=== PATIENT | female | born 1955 | race Caucasian/White ===

== ENCOUNTER 2021-06-24 13:31 | Emergency (ER) | payer MEDICAID, SELFPAY ==
[2021-06-24 13:50] VITALS: BP 146/87; PULSE 70; RESP 16; TEMP 37.1; O2SAT 96; BMI 25.4
--- NOTE | 2021-06-24 13:50 | PC.NURSE ---
pt triaged and sat out in the lobby at this time r/t high volume of pts in ER at this time
--- NOTE | 2021-06-24 15:29 | CT_ITS ---
PROCEDURE: CT ABDOMEN PELVIS WO CON CLINICAL INDICATION: R/o kidney stone Bladder pain COMPARISON: No exams were available for comparison TECHNIQUE: Axial images obtained with sagittal and coronal reformats. All CT scans at the facility use one or more dose reduction, viz: automated exposure control, ma/kV adjustment per patient size (including targeted exams where dose is matched to indication, i.e. head), or iterative reconstruction technique. FINDINGS: LOWER THORAX: Mild atelectatic or fibrotic change in the lung bases. ABDOMEN & PELVIS: The liver, spleen, and adrenal glands have an unremarkable appearance. No obvious pancreatic mass or peripancreatic fluid collection. Prior cholecystectomy. There are nonobstructing bilateral renal calculi with punctate 2 mm calculi on the right. On the left there are small stones measuring up to 4 mm in the lower pole.. On image number 69 there heart is are 2 calcifications the plane of the left ureter measuring 3 and 4 mm which could represent a small ureteral stones or an adjacent phleboliths. There is no significant ureteral dilatation proximal to this region. The urinary bladder has an unremarkable appearance. There is a moderate amount of retained colonic feces. Mildly prominent jejunal loops are present in the left upper quadrant which are nonspecific. No evidence of appendicitis. There are few colonic diverticula but no evidence of diverticulitis. There is minimal dilatation of the infrarenal abdominal aorta at 2 cm. Concave defect is present in the upper aspect of the L4 vertebral body consistent with a Schmorl's node. IMPRESSION: 1. Bilateral nephrolithiasis. 2. Possible nonobstructing left mid ureteral calculi versus adjacent phleboliths. No ureteral dilatation or hydronephrosis. 3. Moderate amount of retained colonic feces Dictated by: Rickey Martínez MD 06/24/2021 16:17 Rickey Martínez MD in [place] 06/24/2021 16:17
--- NOTE | 2021-06-24 15:39 | PC.NURSE ---
notified rad of CT order
[2021-06-24 15:41] LABS: Microscopic, Urine URINE MICROSCOPIC (MICROSCOPIC)
[2021-06-24 15:43] LABS: Appearance,Urine SL CLOUDY (Clear); Bilirubin,Urine Negative (Negative); Blood, Urine 3+ (Negative); Color,Urine YELLOW (Yellow); Glucose,Urine (UA) Negative (Negative); Ketones,Urine TRACE (Negative); Leukocyte Esterase,Urine Negative (Negative); Nitrate,Urine Negative (Negative); Protein,Urine Negative (Negative); Specific Gravity, Urine 1.025 (1.005-1.030); Urobilinogen,Urine 0.2 EU/dl (0.2)
[2021-06-24 15:51] LABS: Basophils # 0.1 K/mm3 (0-0.2); Basophils % 0.7 % (0.1-2.0); Eosinophils # 0.2 K/mm3 (0.0-0.4); Eosinophils % 2.2 % (0.1-12.0); Hematocrit 43.9 % (37.0-47.0); Hemoglobin 14.3 g/dL (12.2-16.2); Lymphocytes # 2.1 K/mm3 (0.7-4.5); Lymphocytes % 19.6 % (10-50); Mean Corpuscular HGB Conc 32.7 g/dL (31.8-35.4); Mean Corpuscular Hemoglobin 31.4 pg (27.0-31.2); Mean Platelet Volume 7.1 fl (7.4-10.4); Monocytes # 0.5 K/mm3 (0.1-1.0); Monocytes % 4.4 % (1.7-9.3); Neutrophils # 7.8 K/mm3 (1.8-7.8); Platelet Count 361 K/mm3 (142-424); Red Blood Count 4.57 M/mm3 (4.20-5.40); Red Cell Distribution Width 12.6 % (11.5-17.5); White Blood Count 10.7 K/mm3 (4.8-10.8)
[2021-06-24 15:54] LABS: Bacteria,Urine Trace /lpf; Mucus,Urine 2+ /lpf
[2021-06-24 15:56] LABS: Alanine Aminotransferase 12 U/L (12-78); Albumin Level 4.4 g/dl (3.5-5.0); Albumin/Globulin Ratio 1.5 (1.1-1.8); Alkaline Phosphatase 92 U/L (38-126); Anion Gap 12.8 mEq/L (5-15); Aspartate Amino Transferase 26 U/L (14-36); Bilirubin,Total 0.3 mg/dl (0.2-1.3); Blood Urea Nitrogen 15 mg/dl (7-17); Carbon Dioxide 28 mmol/L (22.0-30.0); Chloride 102 mmol/L (98-107); Creatinine Clearance Estimated 60 mL/min (50-200); Estimated Glomerular Filt Rate 72 ml/min (>60); GFR (African American) 87 ML/MIN (>60); Glucose 105 mg/dl (74-100); Potassium 3.8 mmoL/L (3.5-5.1); Sodium 139 mmol/L (136-145); Total Protein,Serum 7.4 g/dl (6.3-8.2)
[2021-06-24 17:00] VITALS: BP 174/72; PULSE 65; O2SAT 97
[2021-06-24 17:30] VITALS: BP 176/77; PULSE 64; O2SAT 97
--- NOTE | 2021-06-24 18:24 | [facility].EDGENADL ---
ED Disposition Clinical Impression: Ureterolithiasis Disposition: Home, Self-Care Condition on Discharge: Good Instructions: Kidney Stones -- Adult Additional Instructions: Medications as directed. Follow-up with Dr. Phipps as able. Return to emergency department for worsening pain, nausea/vomiting, fever greater 100.5. Prescriptions: Ketorolac Tromethamine [Toradol 10mg tablet] 10 mg PO Q6HP #16 tab MDD 40mg/day Transmission Status: Pending to [facility] # Tamsulosin HCl [Flomax 0.4mg capsule] 0.4 mg PO HS #30 cap Transmission Status: Pending to [facility] # Hydrocodone/Acetaminophen [Hydrocodone-Acetamin 5-325 mg] 1 tab PO TID #10 tab Transmission Status: Sent to [facility] # Ondansetron [Zofran 4mg ODT] 4 mg PO TIDP PRN #10 tab PRN Reason: Nausea Transmission Status: Pending to [facility] # Referrals: Provider,MD Erica [Primary Care Provider] - Rony Phipps MD [Staff Physician] - (call tomorrow for appt) Time of Disposition: 18:39 - Critical Care Critical Care Time: No Attestation: On 06/24/21, the high probability of a clinically significant, sudden or life threatening deterioration of the following system(s) required my full and direct attention, intervention and personal management. The time I documented below is in addition to time spent performing reported procedures but includes the following listed in this critical care notation. Medical Decision Making - Medical Records Medical records reviewed: Yes: I reviewed the patient's medical records. - Vazquez Inquiry Pt receiving controlled substance: No Vital Signs: 06/24/21 13:50 Temperature 98.7 F Temperature Source Oral Pulse Rate [Left Radial] 70 Respiratory Rate 16 Blood Pressure [Left Arm] 146/87 H Blood Pressure Mean [Left Arm] 106 Blood Pressure Source [Left Arm] Automatic Cuff Blood Pressure Position [Left Arm] Sitting 02 Sat by Pulse Oximetry 96 Oxygen Delivery Method Room Air - Lab Data Lab results reviewed: Yes: I reviewed the patient's lab results. Lab Results 06/24/21 15:35: Urine Color Yellow, Urine Appearance Sl cloudy, Urine pH 6.0, Ur Specific [place] 1.025, Urine Protein Negative, Urine Glucose (UA) Negative, Urine Ketones Trace, Urine Blood 3+, Urine Nitrate Negative, Urine Bilirubin Negative, Urine Urobilinogen 0.2, Ur Leukocyte Esterase Negative, Urine RBC 50-100, Urine WBC 3-5, Urine Bacteria Trace, Urine Mucus 2+ 06/24/21 15:35: WBC 10.7, RBC 4.57, Hgb 14.3, Hct 43.9, MCV 96.0, MCH 31.4 H, MCHC 32.7, RDW 12.6, Plt Count 361, MPV 7.1 L, Neut % (Auto) 73.0, Lymph % (Auto) 19.6, [place] % (Auto) 4.4, Eos % (Auto) 2.2, Baso % (Auto) 0.7, Neut # (Auto) 7.8, Lymph # (Auto) 2.1, [place] # (Auto) 0.5, Eos # (Auto) 0.2, Baso # (Auto) 0.1 06/24/21 15:35: Sodium 139, Potassium 3.8, Chloride 102, Carbon Dioxide 28, Anion Gap 12.8, BUN 15, Creatinine 0.80, Estimated Creat Clear 60, Estimated GFR 72, Est GFR ( Amer) 87, Glucose 105 H, Calcium 9.0, Total Bilirubin 0.3, AST 26, ALT 12, Alkaline Phosphatase 92, Total Protein 7.4, Albumin 4.4, Globulin 3.0, Albumin/Globulin Ratio 1.5 Result diagrams: 06/24/21 15:35 06/24/21 15:35 Orders (Tests/Meds): ED MEDICATIONS Discontinued Medications Generic Name Dose Route Start Last Admin Trade Name Freq PRN Reason Stop Dose Admin Ketorolac Tromethamine 15 mg 06/24/21 17:45 06/24/21 18:20 Ketorolac 30mg/Ml Vial IV 06/24/21 17:46 15 mg ONCE ONE Administration - CT Data CT Scan: Abdomen, Pelvis Time Received: 18:30 Preliminary Findings: Abnormal Findings Narrative: Probable left-sided mid ureterolith Medical Decision Narrative: 65yo F evaluated for bladder pain and suspected UTI. Routine laboratory studies and CT obtained. Patient is in no acute distress on initial evaluation. Patient's laboratory studies are unremarkable except for some hematuria. Urinalysis shows no sign
[2021-06-24 18:52] VITALS: BP 163/53; PULSE 71; RESP 18; TEMP 37.1; O2SAT 97
== END 2021-06-24 18:52 | disposition home or self-care (01) ==
PROVIDERS: Emergency Provider Family Medicine
DX: N20.1 Calculus of ureter (principal); I10 Essential (primary) hypertension; F17.210 Nicotine dependence, cigarettes, uncomplicated; Z87.442 Personal history of urinary calculi
CPT/HCPCS: 74176; 80053; 81001; 85025; 96374; 99283

== ENCOUNTER → 2021-07-07 12:33 | Outpatient (CLI) | payer MEDICAID, SELFPAY ==
--- NOTE | 2021-07-07 12:39 | XR_ITS ---
PROCEDURE: XR KUB CLINICAL INDICATION: ureteral stone COMPARISON: CT CT ABDOMEN PELVIS WO CON from 06/24/2021 FINDINGS: Surgical clips are present in the right upper quadrant. Nonspecific nonobstructive bowel gas pattern. There are small punctate bilateral renal calculi. Multiple pelvic calcifications are present suggesting phleboliths. Degenerative changes lumbar spine. IMPRESSION: No acute finding. Bilateral nephrolithiasis Dictated by: Rickey Martínez MD 07/07/2021 15:32 Rickey Martínez MD in [place] 07/07/2021 15:32
== END ==
PROVIDERS: Visit Provider Urology
DX: N20.1 Calculus of ureter (principal)
CPT/HCPCS: 74018

== ENCOUNTER → 2021-07-14 13:01 | Outpatient (CLI) | payer MEDICAID, SELFPAY ==
--- NOTE | 2021-07-14 13:11 | XR_ITS ---
PROCEDURE: XR KUB CLINICAL INDICATION: ureteral stone COMPARISON: CT CT ABDOMEN PELVIS WO CON from 06/24/2021 CR XR KUB from 07/07/2021 FINDINGS: Status post cholecystectomy.. Punctate bilateral renal calculi once again noted. No definite ureteral calculus apparent with no significant change. Surgical clips are present in the right upper quadrant. IMPRESSION: Bilateral renal calculi Dictated by: Rickey Martínez MD 07/14/2021 15:59 Rickey Martínez MD in [place] 07/14/2021 15:59
== END ==
PROVIDERS: Visit Provider Urology
DX: N20.1 Calculus of ureter (principal)
CPT/HCPCS: 74018

== ENCOUNTER 2022-12-01 15:33 | Emergency (ER) | payer MEDICARE, SELFPAY ==
[2022-12-01 15:39] VITALS: BP 129/76; PULSE 77; RESP 18; TEMP 36.7; O2SAT 96; BMI 25.3
[2022-12-01 15:58] VITALS: BMI 25.3
--- NOTE | 2022-12-01 15:59 | CT_ITS ---
FINAL REPORT CLINICAL HISTORY: L eye blindness 2 am today, r/o stroke FINDINGS: Axial images of the head were obtained without contrast. Coronal reformatted images were also obtained. This study was performed with techniques to keep radiation doses as low as reasonably achievable (ALARA). Individualized dose reduction techniques using automated exposure control or adjustment of mA and/or kV according to the patient's size were employed. There is generalized age-appropriate atrophy. Periventricular low-attenuation areas are seen consistent with mild chronic ischemic changes. There is no evidence of intracranial hemorrhage or mass. There is no evidence of acute infarct. There is no evidence of shift of the midline structures. No skull abnormality is seen on the bone window images. IMPRESSION: Atrophy and mild periventricular chronic ischemic changes. No acute intracranial abnormality identified. Reviewed, Interpreted and Dictated by Phillip Landin III, MD Transcribed by Leticia Bautista Authenticated and [facility]
--- NOTE | 2022-12-01 16:00 | PC.NURSE ---
notified rad of stroke protocol head ct
--- NOTE | 2022-12-01 16:01 | XR_ITS ---
FINAL REPORT CLINICAL HISTORY: stroke protocol FINDINGS: SINGLE-VIEW CHEST The heart size is normal. The mediastinum is normal. There is a 6 mm left upper lobe nodule. It is uncertain if it is calcified. There is no pneumothorax. IMPRESSION: Left upper lobe nodule as detailed above. If indicated, CT could further evaluate. Reviewed, Interpreted and Dictated by Phillip Landin III, MD Transcribed by Jia Herring Authenticated and [facility]
--- NOTE | 2022-12-01 16:06 | PC.NURSE ---
Patient to CT
[2022-12-01 16:13] LABS: Basophils # 0.2 K/mm3 (0-0.2); Basophils % 1.6 % (0.1-2.0); Eosinophils # 0.3 K/mm3 (0.0-0.4); Eosinophils % 2.7 % (0.1-12.0); Hematocrit 43.9 % (37.0-47.0); Hemoglobin 14.2 g/dL (12.2-16.2); Lymphocytes # 1.9 K/mm3 (0.7-4.5); Lymphocytes % 18.6 % (10-50); Mean Corpuscular HGB Conc 32.3 g/dL (31.8-35.4); Mean Corpuscular Hemoglobin 31.8 pg (27.0-31.2); Mean Corpuscular Volume 98.6 fl (81-99); Mean Platelet Volume 7.6 fl (7.4-10.4); Monocytes # 0.4 K/mm3 (0.1-1.0); Monocytes % 4.4 % (1.7-9.3); Neutrophils # 7.3 K/mm3 (1.8-7.8); Neutrophils % 72.8 % (37.0-80.0); Platelet Count 395 K/mm3 (142-424); Red Blood Count 4.46 M/mm3 (4.20-5.40); Red Cell Distribution Width 13.3 % (11.5-17.5); White Blood Count 10.1 K/mm3 (4.8-10.8)
[2022-12-01 16:17] LABS: Chloride 106 mmol/L (98-107); Potassium 4.6 mmoL/L (3.5-5.1); Sodium 140 mmol/L (136-145)
[2022-12-01 16:20] LABS: Anion Gap 5.6 mEq/L (5-15); Blood Urea Nitrogen 19 mg/dl (7-17); Calcium 8.7 mg/dl (8.4-10.2); Carbon Dioxide 33 mmol/L (22.0-30.0); Creatinine Clearance Estimated 57 mL/min (50-200); Estimated Glomerular Filt Rate 63 ml/min (>60); GFR (African American) 76 ML/MIN (>60); Glucose 111 mg/dl (74-100)
[2022-12-01 16:22] LABS: Prothrombin Time 9.8 seconds (10.1-12.5)
[2022-12-01 16:35] VITALS: BP 134/60; PULSE 66; RESP 18; O2SAT 94
[2022-12-01 16:37] VITALS: BP 161/56; PULSE 62; RESP 18; O2SAT 95
--- NOTE | 2022-12-01 16:51 | ECG_ITS ---
APPROVED REPORT Exam: Resting ECG HR:64 bpm ECG Measurements Heart Rate 64 AXES ID 153 P 66 QRSd 107 QRS -4 QT 423 T 65 QTc 432 Conclusion SINUS RHYTHM NORMAL ECG UNCONFIRMED REPORT Electronically signed by : Liu Garcia MD 12/01/2022 20:45:33
--- NOTE | 2022-12-01 16:56 | [facility].EDGENADL ---
Discharge Plan Disposition Patient Disposition: Home, Self-Care Condition: Good Chief Complaint: Neuro Symptoms/Deficit Prescriptions Prescriptions: No Action duloxetine [Cymbalta] 30 mg capsule,delayed release(DR/EC) 30 mg PO DAILY metoprolol succinate [Toprol XL] 25 mg tablet extended release 24 hr 25 mg PO DAILY losartan [Cozaar] 50 mg tablet 50 mg PO DAILY hydrocodone-acetaminophen 7.5-325 mg tablet 1 tab PO HS PRN Referrals Follow up/Referrals: Provider,Referral, [Primary Care Provider] - See instructions Activity Restrictions/Add. Instructions Additional Instructions/Restrictions: Take aspirin 81 mg every day. Take atorvastatin every day as prescribed. Recommend smoking cessation. Take your blood pressure medication as prescribed. Follow-up as soon as possible with your primary care provider to discuss referral to a vascular surgeon for endarterectomy. Take your CT scans and CT angiogram disks with you. Go straight to emergency department if your vision symptoms return or any new symptoms such as weakness, numbness, or difficulty speaking. Clinical Impressions Clinical Impression: Brain TIA, Carotid artery stenosis, Hypertension Instructions Patient Instructions: DI for Transient Ischemic Attack, DI for Carotid Artery Stenosis, DI for High Blood Pressure Discharge ED Provider: Cesar Galloway General Adult HPI General Chief complaint: Neuro Symptoms/Deficit Stated complaint: poss HBP, 185/67@1430 Time Seen by Provider: 12/01/22 16:55 Mode of Arrival: Ambulatory Source of Information: Patient Limitations: No Limitations Description of Symptoms (Recalled from ER Triage Doc. by RN): Pt presents c/o issues with blood pressure for approx 1-2 weeks. Pt reports bp has been elevated each time she has checked it this week. Pt reports taking bp medications daily but has also been taking sinus medications. Pt reports this morning approx 2am when she woke up she was blind in her L eye. Pt reports this lasted for approx 10 minutes. Pt repots today has has blurry vision today in both eyes but only if she closes one of her eyes and looks out of one at a time. History of Present Illness HPI narrative: Patient states that she has been having problems with her blood pressure being high for the past couple of weeks. She says a couple of days ago she found a blood pressure cuff at home and measured it and it was 204/109. She says she took an extra blood pressure pill. She has made an appointment to see her nail puller in [facility] that manages her blood pressure. She says that last night she awakened about 2 AM and was almost completely blind in her left eye. She says that it was like looking through a cloud and she could see a little bit of light coming in from the periphery. It lasted for about 10 minutes. Now she says she only has some mild blurry vision bilaterally. She has had some recent problems with headaches and neck pain as well. She has not had any numbness or weakness of the extremities and no difficulty speaking. No prior history of stroke or TIA. She does have hypertension and takes Toprol in the morning, losartan at night. She is compliant with her blood pressure medication. She says she is supposed to take aspirin but normally does not, but did take an 81 mg aspirin this morning. Also states that she is supposed to be on a statin for cholesterol, but does not take it either. Also continues to smoke. States she has a supply of her statin at home. Related Data Home Medications Medication Instructions Recorded Confirmed duloxetine 30 mg capsule,delayed 30 mg PO DAILY 06/23/21 07/14/21 release (Cymbalta) hydrocodone 7.5 mg-acetaminophen 1 tab PO HS PRN 06/23/21 07/14/21 325 mg tablet losartan 50 mg tablet (Cozaar) 50 mg PO DAILY 06/23/21 07/14/21 metoprolol succinate 25 mg 25 mg PO DAILY 06/23/21 07/14/21 tablet,extended release 24 hr (Toprol XL)
--- NOTE | 2022-12-01 17:10 | CT_ITS ---
PROCEDURE INFORMATION: Exam: CTA Neck With Contrast Exam date and time: 12/01/2022 5:29 PM Age: 67 years old Clinical indication: Visual disturbance; Sudden visual loss; Additional info: Episode of vision loss L eye, RT eye blurry x last night. Nkt TECHNIQUE: Imaging protocol: Computed tomographic angiography of the neck with contrast. 3D rendering (Not supervised by radiologist): MIP and/or 3D reconstructed images were created by the technologist. Radiation optimization: All CT scans at this facility use at least one of these dose optimization techniques: automated exposure control; mA and/or kV adjustment per patient size (includes targeted exams where dose is matched to clinical indication); or iterative reconstruction. Contrast material: ISOVUE; Contrast volume: 100 ml; Contrast route: INTRAVENOUS (IV); REPORTING DATA: Count of CT and Cardiac NM exams in prior 12 months: This patient has received 2 known CTs and 0 known cardiac nuclear medicine studies in the 12 months prior to the current study. COMPARISON: CT HEAD/BRAIN WO CON 12/01/2022 4:06 PM FINDINGS: Right common carotid artery: Distal right common carotid artery has 30% stenosis due to calcified and noncalcified plaque. Right internal carotid artery: Proximal right internal carotid artery has 50% stenosis due to calcified and noncalcified plaque. Right external carotid artery: No occlusion or stenosis of the origin. Left common carotid artery: The left common carotid artery has mild predominantly noncalcified plaque with less than 30% stenosis. Left internal carotid artery: The proximal left internal carotid artery has approximately 80% stenosis which spans 1.2 cm in length. Left external carotid artery: No occlusion or stenosis of the origin. Right vertebral artery: 50% stenosis is seen in the proximal right vertebral artery just beyond the origin. Left vertebral artery: No stenosis. No dissection or occlusion. Left subclavian artery: Left subclavian artery proximal/midportion has 50% stenosis predominantly due to noncalcified plaque on series 6, image 112. There is 30% stenosis also present in the proximal left subclavian just beyond the origin. Soft tissues: Normal. No significant soft tissue swelling. Bones/joints: No acute fracture. Lungs: Posterior left upper lobe calcified granuloma measuring 9 mm. IMPRESSION: 1. High-grade approximally 80% stenosis of the proximal left internal carotid artery. 2. The proximal right internal carotid artery has 50% stenosis which is below the threshold for significance by the NASCET criteria. 3. Additional regions of 50% stenosis of the proximal/mid left subclavian artery and in the proximal right vertebral artery. REFERENCES: NASCET CRITERIA. The degree of stenosis in the cervical segment of the internal carotid artery is based on NASCET criteria. Normal is no stenosis. Mild is less than 50% stenosis. Moderate is 50-69% stenosis. Severe is 70% to 99% stenosis. Total occlusion is no detectable patent lumen.
--- NOTE | 2022-12-01 17:10 | CT_ITS ---
PROCEDURE INFORMATION: Exam: CTA Head With Contrast, Arteriography Exam date and time: 12/01/2022 5:29 PM Age: 67 years old Clinical indication: Visual disturbance; Sudden visual loss; Patient HX: Episode of vision loss L eye, RT eye blurry x last night. Nkt TECHNIQUE: Imaging protocol: Computed tomographic angiography of the head with contrast. Exam focused on the arteries. 3D rendering (Not supervised by radiologist): MIP and/or 3D reconstructed images were created by the technologist. Radiation optimization: All CT scans at this facility use at least one of these dose optimization techniques: automated exposure control; mA and/or kV adjustment per patient size (includes targeted exams where dose is matched to clinical indication); or iterative reconstruction. Contrast material: ISOVUE; Contrast volume: 100 ml; Contrast route: INTRAVENOUS (IV); REPORTING DATA: Count of CT and Cardiac NM exams in prior 12 months: This patient has received 2 known CTs and 0 known cardiac nuclear medicine studies in the 12 months prior to the current study. COMPARISON: CT HEAD/BRAIN WO CON 12/01/2022 4:06 PM FINDINGS: ANTERIOR CIRCULATION: Right internal carotid artery: Intracranial segment is patent with no significant stenosis. No aneurysm. Right middle cerebral artery: No occlusion or significant stenosis. No aneurysm. Right anterior cerebral artery: No occlusion or significant stenosis. No aneurysm. Left internal carotid artery: Intracranial segment is patent with no significant stenosis. No aneurysm. Left middle cerebral artery: No occlusion or significant stenosis. No aneurysm. Left anterior cerebral artery: No occlusion or significant stenosis. No aneurysm. POSTERIOR CIRCULATION: Right vertebral artery: No occlusion or significant stenosis. No aneurysm. Left vertebral artery: No occlusion or significant stenosis. No aneurysm. Basilar artery: No occlusion or significant stenosis. No aneurysm. Right posterior cerebral artery: No occlusion or significant stenosis. No aneurysm. Left posterior cerebral artery: No occlusion or significant stenosis. No aneurysm. Brain: No definite mass, mass effect, or midline shift. Cerebral ventricles: No ventriculomegaly. Bones/joints: Unremarkable. No acute fracture. Soft tissues: Unremarkable. IMPRESSION: No large vessel stenosis or occlusion.
[2022-12-01 17:27] LABS: Troponin I < 0.01 ng/ml (0.00-0.034)
--- NOTE | 2022-12-01 17:42 | PC.NURSE ---
1734-pt in CT for CTA scans
--- NOTE | 2022-12-01 18:46 | PC.NURSE ---
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
[2022-12-01 18:58] VITALS: BP 144/79; PULSE 71; RESP 17; TEMP 36.7; O2SAT 96
== END 2022-12-01 19:00 | disposition home or self-care (01) ==
PROVIDERS: Emergency Provider Emergency Medicine
DX: G45.9 Transient cerebral ischemic attack, unspecified (principal); I10 Essential (primary) hypertension; F17.210 Nicotine dependence, cigarettes, uncomplicated
CPT/HCPCS: 70450; 70496; 70498; 71045; 80048; 84484; 85025; 85610; 93005; 99285; Q9967

== ENCOUNTER 2025-06-12 13:50 | Outpatient (RCR) | payer MEDICARE, SELFPAY | END 2025-06-12 23:59 | disposition home or self-care (01) | LOC: OT 13:50 | DX: S32.010A Wedge compression fracture of first lumbar vertebra, initial encounter for closed fracture (principal); X58.XXXA Exposure to other specified factors, initial encounter ==

== ENCOUNTER 2025-07-09 15:17 | Outpatient (CLI) | payer MEDICARE, SELFPAY ==
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
--- OUTSIDE RECORDS SUMMARY | 2025-05-15 14:05 | XMS_ITS | Encounter Summary ---
Author Organization Healthcare Address [address] [place] [address] Care Team Providers Care Processing Supervisor Name Role Phone Susi Hanna MD Primary Care Provider [phone] Encounter Details Date Type Department Care Team (Latest Contact Info) Description 05/15/2025 2:05 PM EDT - 05/15/2025 11:59 PM EDT Hospital En[facility] [address], [address] [place] [address] Right shoulder pain, unspecified chronicity Discharge Disposition: Home or Self Care Social History Tobacco Use Types Packs/Day Years [...] any time in the past 12 m [facility], were you homeless or living in a senior care (including now)? No 04/15/2025 Utilities Answer Date Recorded In the past 12 months has th e [employer], gas, oil, or water [employer] threatened to shut off services in your home? No 04/15/2025 Comments No Sex and Gender Information Value Date Recorded Sex Assigned at Not on file Legal Sex Female 6:12 PM EDT Gender Identity Not on file Sexual Orientation Not on file documented as of this encounter Medications at Time of Discharge atorvastatin (Lipitor) 20 MG tablet Take 1 tablet by mouth daily. bisacodyl (Dulcolax) 10 MG suppository Insert 1 suppository into the rectum daily. 12 suppository 5 cholecalciferol (Vitamin D-3) 50 MCG (1999) capsule Take 1 capsule by mouth daily. 4 clopidogrel (Plavix) 75 MG tablet Take 1 tablet by mouth daily. DULoxetine (Cymbalta) [address] capsule Take 1 capsule by mouth daily. 4 HYDROcodone-acetami nophen ([place]) 7.5-325 MG tablet 5 hydrocortisone (Proctozone-HC) 2.5 % rectal cream 6 methocarbamol (Robaxin) 750 MG tablet Take 1 tablet by mouth 3 times a day. 90 tablet 5 methylPREDNISolone (Medrol Dospak) 4 MG tablets follow package directions 5 metoprolol succinate XL (Toprol-XL) 25 MG 24 hr tablet Take 1 tablet by mouth daily. Do not crush or chew. naloxone (Narcan) 4 mg/0.1 mL nasal spray 1. Give 1 spray in nostril for no/slow breathing or cannot wake after opioid use 2. Call 911 3. Repeat in other nostril if symptoms continue 1 each 5 Neurontin 400 MG capsule Take 1 capsule by mouth 3 times a day. 5 nicotine (Nicoderm CQ) 21 MG/24HR patch Place 1 patch on the skin 1 (one) time each day at the same time. 30 patch 5 ondansetron ODT (Zofran-ODT) [address] 1 tablet every 8 hours by translingual route as needed. pantoprazole (Protonix) 40 MG EC tablet Take 1 tablet by mouth daily. 4 Lidocaine (Lido Evert) 4 % patch Apply 1 patch topically daily. Apply to affected area daily for pain 30 patch 5 05/23/20 25 senna-docusate (Tiffanie-Colace) 8.6-50 MG tablet Take 1 tablet by mouth 2 times a day. 60 tablet 5 05/23/20 25 documented as of this encounter Plan of Treatment Upcoming Encounters Date Type Department Care Team (Latest Contact Info) Description 07/17/2025 1:15 PM EDT Pre-Admission Testing [facility] Anesthesia [address] [place] [address] 08/12/2025 2:35 PM EST Hospital Encounter [facility] Operating Room [address] [place] [address] Obie Sherman MD [address] [place] [address] 08/12/2025 2:35 PM EST - 08/12/2025 4:45 PM EST Surgery [facility] Operating Room [address] [place] [address] Obie Sherman MD [address] [facility] [address] [place] [address] ARTHROPLASTY, SHOULDER, TOTAL, REVERSE-RIGHT [[id number] (CPT )] 08/27/2025 3:20 PM EST Office Visit [facility] Orthopaedic Surgery & Sports Medicine [address], 1[address] [place] [address] Obie Sherman MD [address] [facility] [address] [place] [address] 09/30/2025 1:00 PM EST Office Visit [facility] [address], [address] [place] [address] Romana Monsalve, PA [address] [place] [address] Scheduled Procedures Name Priority Associated Diagnoses Date/Ti me ARTHROPLASTY, SHOULDER, TOTAL, REVERSE Closed fracture of proximal end of right humerus, unspecified fracture morphology, initial encounter 08/12/2025 2:35 PM EST documented as of this encounter Procedures Procedure Name Priority Date/Time Associated Diagnosis Comments XR SHOULDER RIGHT 2+ VIEWS Routine 05/15/2025 3:02 PM EDT Right shoulder pain, unspecified chronicity documented in this encounter Results * XR Shoulder Right 2+ Views (05/15/2025 3:02 PM EDT) Anatomical Region Laterality Modality Upper Extremities, Shoulder Right Digi dasia Radiography Impressions 05/15/2025 3:23 PM EDT Healing comminuted humeral neck fracture with unchanged fracture fragment alignment CRITICAL RESULT: No. COMMUNICATION: Per this written report. Drafted by Caden Valle MD on 05/15/2025 3:22 PM Final report signed by Caden aVlle MD on 05/15/2025 3:23 PM Narrative 05/15/2025 [...] chest wall are normal. Procedure Note Caden Valel MD - 05/15/2025 CLINICAL INDICATION: pain TECHNIQUE: [...] documented in this encounter Visit Diagnoses Diagnosis Right shoulder pain, unspecified chronicity Closed fracture [...] documented as of this encounter Care Teams Processing Supervisor Relationship Specialty Start Date End Date Susi Hanna MD [address] [place] [address] [place] [address] PCP - General 02/20/21 06/12/25 documented as of this encounter
--- OUTSIDE RECORDS SUMMARY | 2025-05-23 10:45 | XMS_ITS | Encounter Summary ---
Author Organization Healthcare Address [address] [place] [place] [address] Care Team Providers Care Compressor House Operator Name Role Phone Susi Hanna MD Primary Care Provider [phone] Encounter Details Date Type Department Care Team (Latest Contact Info) Description 05/23/2025 10:45 AM EDT - 05/23/2025 11:59 PM EDT Hospital Encounter [facility] [address], 1[address] [place] [address] Closed compression fracture of body of L1 vertebra (CMS/[facility]) Discharge Disposition: Home or Self Care Social [...] any time in the past 12 m [facility], were you homeless or living in a assisted (including now)? No 04/15/2025 Utilities Answer Date Recorded In the past 12 months has th e [employer], gas, oil, or water company threatened to shut off services in your [...] capsule by mouth daily. 4 HYDROcodone-acetami nophen ([place]) 7.5-325 MG tablet 5 hydrocortisone (Proctozone-HC) 2.5 % rectal cream 6 methocarbamol (Robaxin) 750 MG tablet Take 1 tablet by mouth 3 times a day. 90 tablet 5 methylPREDNISolone (Medrol Dospak) 4 MG tablets follow package directions 5 metoprolol succinate XL (Toprol-XL) 25 MG 24 hr tablet Take 1 tablet by mouth daily. Do not crush or chew. multivitamin (Theragran) tablet Take 1 tablet by mouth 1 time each day. naloxone (Narcan) 4 mg/0.1 mL nasal spray [...] Take 1 tablet by mouth daily. 4 documented as of this encounter Plan of Treatment Upcoming Encounters Date Type Department Care Team (Latest Contact Info) Description 07/17/2025 1:15 PM EDT Pre-Admission Testing [facility] Anesthesia [address] [place] [address] 08/12/2025 2:35 PM EST Hospital Encounter [facility] Operating Room [address] [place] [address] Obie Sherman MD [id number] [place] [address] 08/12/2025 2:35 PM EST - 08/12/2025 4:45 PM EST Surgery [facility] Operating Room [address] [place] [address] Obie Sherman MD [id number] [place] [address] ARTHROPLASTY, SHOULDER, TOTAL, REVERSE-RIGHT [[id number] (CPT )] 08/27/2025 3:20 PM EST Office Visit [facility] Orthopaedic Surgery & Sports Medicine [address] [place] [address] Obie Sherman MD [address] [place] [address] 09/30/2025 1:00 PM EST Office Visit [facility] [address] [place] [address] Romana Monsalve PA [address] [place] [address] Scheduled Procedures Name Priority Associated Diagnoses Date/Ti me ARTHROPLASTY, SHOULDER, TOTAL, REVERSE Closed fracture of proximal end of right humerus, unspecified fracture morphology, initial encounter 08/12/2025 2:35 PM EST documented as of this encounter Procedures Procedure Name Priority Date/Time Associated Diagnosis Comments XR LUMBAR SPINE 4 VIEWS TO INCLUDE FLEXION EXTENSION Routine 05/23/2025 11:01 AM EDT Closed compression fracture of body of L1 vertebra (CMS/[facility]) documented in this encounter Results * XR Lumbar Spine 4+ Views w Flexion Extension (05/23/2025 11:01 AM EDT) Anatomical Region Laterality Modality Spine, L-spine Digital Radiogra phy Impressions 05/23/2025 11:59 AM EDT Compression deformity at L1 with unchanged loss of vertebral body height and no vertebral instability. CRITICAL RESULT: No. COMMUNICATION: Per this written report. Drafted by Caden Valle MD on 05/23/2025 11:57 AM Final report signed by Caden Valle MD on 05/23/2025 11:59 AM Narrative 05/23/2025 11:59 AM EDT CLINICAL INDICATION: fracture follow up with rule out for instability TECHNIQUE: XR LUMBAR SPINE 4 VIEWS TO INCLUDE FLEXION EXTENSION COMPARISON: April 12, 2025 FINDINGS: 4 views of the lumbar spine show compression deformity at L1 with unchanged loss of vertebral body height. Unchanged disc space narrowing at L2-L3, L3-L4 and L5-S1. Unchanged minimal posterior subluxation at L1-L2 through L4-L5 without instability. No bone destruction. Sacroiliac joints are normal. Procedure Note Caden Valle MD - 05/23/2025 CLINICAL INDICATION: fracture follow up with rule out for instability TECHNIQUE: XR LUMBAR SPINE 4 VIEWS TO INCLUDE FLEXION EXTENSION COMPARISON: April 12, 2025 FINDINGS: 4 views of the lumbar spine show compression deformity at L1 withunchanged loss of vertebral body height. Unchanged disc space narrowing atL2-L3, L3-L4 and L5-S1. Unchanged minimal posterior subluxation at L1-L3kkzrhap L4-L5 without instability. No bone destruction. Sacroiliac jointsare normal. IMPRESSION: Compression deformity at L1 with unchanged loss of vertebral body heightand no vertebral instability. CRITICAL RESULT: No. COMMUNICATION: Per this written report. Drafted by Caden Valle MD on 05/23/2025 11:57 AM Final report signed by Caden Valle MD on 05/23/2025 11:59 AM Kylee Chong DEVELOPMENT SPEC IMG XR PROCEDURES Final Re sult documented in this encounter Visit Diagnoses Diagnosis Closed compression fracture of body of L1 vertebra (CMS/HCC) Closed fracture of proximal end of right humerus, unspecified fracture morphology, initial encounter documented in this encounter Additional Health Concerns Assessment Noted Time A fall risk assessment has been complete d for the patient 05/23/2025 11:10 AM EDT A Body Mass Index follow-up plan has been documented for the patient 05/23/2025 5:06 PM EDT documented as of this encounter Care Teams Compressor House Operator Relationship Specialty Start Date End Date Susi Hanna MD [address] [place] [address] [address] [place] [address] PCP - General 02/20/21 06/12/25 documented as of this encounter
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
--- OUTSIDE RECORDS SUMMARY | 2025-06-26 07:55 | XMS_ITS | Encounter Summary ---
Author Organization Healthcare Address [address] [place] [address] Care Team Providers Care Manager Category Name Role Phone Nicholas Charles APRN Primary Care Provider [phone] Encounter Details Date Type Department Care Team (Latest Contact Info) Description 06/26/2025 7:55 AM EDT - 06/26/2025 10:26 AM EDT Hospital Encounter [facility] [address], [address] [place] [address] Age related osteoporosis, unspecified pathological fracture presence Discharge Disposition: Home or Self Care Social History Tobacco Use Types Packs/Day Years Used Date Smoking Tobacco: Former Cigarettes 1 44.5 0 10/10/1980 - 04/11/2025 Passive Smoke Exposure: Past Smokeless Tobacco: Never Alcohol Use Standard Drinks/Week [...] time in the past 12 m [facility], were you homeless or living in a intermediate (including now)? No 04/15/2025 Utilities Answer Date Recorded In the past 12 months has th e [employer], gas, oil, or water company threatened to [...] capsule by mouth daily. 4 HYDROcodone-acetami nophen (Sunnyside) 7.5-325 MG tablet 5 hydrocortisone (Proctozone-HC) 2.5 % rectal cream 09/09/201 6 methocarbamol (Robaxin) 750 MG tablet Take [...] Description 07/17/2025 1:15 PM EDT Pre-Admission Testing [facility] Anesthesia [address] [place] [address] 08/12/2025 2:35 PM [facility] Hospital Encounter [facility] Operating Room [address] [place] [phone] Obie Sherman MD [id number] [place] [address] 08/12/2025 2:35 PM EST - 08/12/2025 4:45 PM EST Surgery [facility] Operating Room [address] [place] [address] Obie Sherman MD [id number] [place] [address] ARTHROPLASTY, SHOULDER, TOTAL, REVERSE-RIGHT [[id number] (CPT )] 08/27/2025 3:20 PM EST Office Visit [facility] Orthopaedic Surgery & Sports Medicine [address], [address] [place] [address] Obie Sherman MD [address] [place] [address] 09/30/2025 1:00 PM EST Office Visit [facility] [address], [address] [place] [address] Romana Monsalve, GURVINDER [address] [place] [address] Scheduled Procedures Name Priority Associated Diagnoses Date/Ti me ARTHROPLASTY, SHOULDER, TOTAL, REVERSE Closed fracture of proximal end of right humerus, unspecified fracture morphology, initial encounter 08/12/2025 2:35 PM EST documented as of this encounter Goals Goal Patient Goal Type Associated Problems Recent Progress Patient-Stated? Author Autogenerat ed Goal Care Plan Autogenerated Problem No Bhavana Holder documented as of this encounter Procedures Procedure Name Priority Date/Time Associated Diagnosis Comments DEXA BONE DENSITY Routine 06/26/2025 7:5 5 AM EDT Age related osteoporosis, unspecified pathological fracture presence documented in this encounter Results * Dexa Bone Density (06/26/2025 7:55 AM EDT) Anatomical Region Laterality Modality L-spine Radiographic Velia ging Narrative 06/30/2025 10:51 AM EDT [facility] - [facility] Clinic [address], [place] [address] DXA Bone Densitometry Report: [06/26/2025] BMD test performed using the Aphios DXA System (analysis version: 14.10) manufactured by [employer]. REFERRING PROVIDER: Dr. Kylee Chong, [facility] CLINICAL INFORMATION: osteoporosis PATIENT NAME: Haylie Todd [...] comparison and calculation of change in BMD). Kylee Chong APRN IMG DXA PROCEDURES Final R esult documented in this encounter Visit Diagnoses Diagnosis Age related osteoporosis, unspecified pathological fracture presence Closed fracture of proximal end of right humerus- Primary Closed fracture of proximal end of right humerus, unspecified fracture morphology, initial encounter documented in this encounter Additional Health Concerns Active Problems Noted Date Diagnosed Date Autogenerated Problem 06/26/2025 Assessment Noted Time A fall risk assessment has been complete d for the patient 06/26/2025 10:21 AM EDT A Body Mass Index follow-up plan has been documented for the patient 06/26/2025 2:18 PM EDT documented as of this encounter Care Teams Manager Category Relationship Specialty Start Date End Date Nicholas Charles APRN [address] [place] [address] PCP - General 06/13/25 documented as of this encounter
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
--- OUTSIDE RECORDS SUMMARY | 2025-06-26 10:27 | XMS_ITS | Encounter Summary ---
Author Organization Healthcare Address [address] [place] [address] Care Team Providers Care Solid Waste Disposal Manager Name Role Phone Nicholas Charles APRN Primary Care Provider [phone]- [phone] Encounter Details Date Type Department Care Team (Latest Contact Info) Description 06/26/2025 10:27 AM EDT - 06/26/2025 11:59 PM EDT [facility] [address] [place] [id number] Closed fracture of proximal end of right humerus, unspecified fracture morphology, initial encounter; Closed compression fracture of body of L1 vertebra (CMS/[facility]) Discharge Disposition: Home or Self Care Social [...] time in the past 12 m [facility], were you homeless or living in a senior living (including now)? No 04/15/2025 Utilities Answer Date [...] suppository 5 cholecalciferol (Vitamin D-3) 50 MCG (1999 UT) capsule Take 1 capsule by mouth daily. 4 clopidogrel (Plavix) 75 MG tablet Take 1 tablet by mouth daily. DULoxetine (Cymbalta) [address] capsule Take 1 capsule by mouth daily. 4 HYDROcodone-acetami nophen ([place]) 7.5-325 MG tablet 5 hydrocortisone (Proctozone-HC) 2.5 % rectal cream 6 methylPREDNISolone (Medrol Dospak) 4 MG tablets follow [...] by mouth 3 times a day. 5 ondansetron ODT (Zofran-ODT) [address] 1 tablet every 8 hours by translingual route as needed. pantoprazole (Protonix) 40 MG EC tablet Take 1 tablet by mouth daily. 4 documented as of this encounter Plan of Treatment Upcoming Encounters Date Type Department Care Team (Latest Contact Info) Description 07/17/2025 1:15 PM EDT Pre-Admission Testing [facility] Anesthesia [address] [place] [address] 08/12/2025 2:35 PM EST Hospital Encounter [facility] [address] [place] [address] Obie Sherman MD [address] [address] 08/12/2025 2:35 PM EST - 08/12/2025 4:45 PM EST Surgery [facility] [address] Room [address] [place] [address] Obie Sherman MD [address] [phone] ARTHROPLASTY, SHOULDER, TOTAL, REVERSE-RIGHT [[id number] (CPT )] 08/27/2025 3:20 PM EST Office Visit [facility] [address] [place] [address] Obie Sherman MD [address] [place] [address] 09/30/2025 1:00 PM EST Office Visit [facility] [address], [address] [place] [address] Romana Monsalve PA [address] [place] [address] Scheduled Procedures Name Priority Associated [...] Comments XR SHOULDER RIGHT 2+ VIEWS Routine 06/26/2025 10:55 AM EDT Closed fracture of proximal end of right humerus, unspecified fracture morphology, initial encounter XR LUMBAR SPINE 4 VIEWS TO INCLUDE FLEXION EXTENSION Routine 06/26/2025 10:55 AM EDT Closed compression fracture of body of L1 vertebra (CMS/[facility]) documented in this encounter Results * XR Lumbar Spine 4+ Views w Flexion Extension (06/26/2025 10:55 AM EDT) Anatomical Region Laterality Modality Spine, L-spine Digital Radiogra phy Impressions 06/26/2025 11:18 AM EDT 1. Comminuted [...] Caden Valle MD on 06/26/2025 11:18 AM us Kylee Chong STAMP CLASSIFIER IMG XR PROCEDURES Final Re sult * XR Shoulder Right 2+ Views (06/26/2025 [...] documented as of this encounter Care Teams Solid Waste Disposal Manager Relationship Specialty Start Date End Date Nicholas Charles APRN [address] [place] [id number] PCP - General 06/13/25 documented as of this encounter
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
--- OUTSIDE RECORDS SUMMARY | 2025-07-09 15:20 | XMS_ITS | Patient Health Record ---
Author Organization [facility] Address [address] [place] [address] [address] [place] [address] Care Team Providers Care Salvage Inspector Name Role Phone Winnie Mena Primary Care Provider Allergies Allergen (clinical drug ingredient) Drug/Non Drug Allergy documented on EMR Reaction Allergy Type Onset Date Status codeine Codeine (uncoded) Vomiting Allergy Ac tive Non-steroidal anti-inflammatory agent (FN) NSAIDs (uncoded) Stomach Problems Allergy Active Substance with sulfonamide structure and antibacterial mechanism of action (substance) Sulfa (uncoded) Rash Allergy Active Reason For Referral No Information Medications Medication SIG (Take, Route, Frequency, Duration) Notes Start Date End Date Status Tylenol Cold/Flu Severe [id number] MG 2 tablets as needed Orally every 4 hrs Active Kenzie-Custer Orally Active Plan Of Treatment Pending Test Test Name Order Date COVID 06/04/2022 Insurance Providers Payer Name Payer Address Payer Phone Subscriber Number Group Number Insured Name Patient Relationship to Insured Coverage Start Date Coverage End Date Dist[employer] [facility] [address] [address] [place] [address] [phone] [id number] Haylie Todd Self - patient is the insured Medical (General) History Medical History History ICD Code diverticulosis Surgical History Surgery Date(Month/Year) section tubal ligation lumpectomy, left breast Ovarian Tissue Froze
--- OUTSIDE RECORDS SUMMARY | 2025-07-09 15:21 | XMS_ITS | Patient Health Record ---
Author Organization [facility] Address [address] [place] [address] [address] [place] [address] Care Team Providers Care Hog Buyer Name Role Phone Alecia Duron Primary Care Provider [phone] Allergies Allergen (clinical drug ingredient) Drug/Non Drug Allergy documented on EMR Reaction Allergy Type Onset Date Status codeine Codeine Sulfate itchiness Drug Allergy A ctive Reason For Referral No Information Medications Medication SIG (Take, Route, Frequency, Duration) Notes Start Date End Date Status Triamcinolone Acetonide 40 MG/ML 1 ml Injection Once a day; Duration: 1 days Active Proctozone-HC 2.5 % 1 application to aff ected area Rectal Twice a day Active Ketorolac Tromethamine 60 MG/2ML 2 ml Intramuscular once; Duration: 1 days Active Cymbalta 60 MG 1 capsule Orally Onc e a day; Duration: 90 days Active Plavix 75 MG 1 tablet Orally Once a day; Duration: 30 day(s) Active Vitamin D (Ergocalciferol) 50 MCG (1999 UT) 1 capsule Orally Once a day; Duration: 90 days Active Atorvastatin Calcium 20 MG 1 tablet Oral ly Once a day; Duration: 90 days Active Protonix 40 MG 1 tablet Orally Once a day; Duration: 90 days Active Cyclobenzaprine HCl 10 MG 1 tablet as ne eded Orally Once a day; Duration: 90 days Active Hydrocortisone 1 % APPLY TO AFFECTED AR EA(S) TOPICALLY EVERY DAY DIRECTED Externally Once a day; Duration: 90 days Active Ondansetron 4 MG 1 tablet on the tong ue and allow to dissolve Orally Once a day; Duration: 30 day(s) 05/20/2023 Active [place]lington 5-325 MG 1 tablet Orally daily Active Flomax 0.4 MG 1 capsule Orally Onc e a day; Duration: 14 days 09/14/2022 Active Problems Problem Type SNOMED Code ICD Code Onset Dates Problem Status W/U Status Risk Notes Problem Pernicious anemia (22412402) Vitamin B12 deficiency anemia due to intrinsic factor deficiency (D51.0) Active confirmed Problem Vitamin D deficiency (55577668) Vitamin D deficiency, unspecified (E55.9) Active confirmed Problem Hyperlipidemia (94823250) Hyperlipidemia, unspecified (E78.5) Active confirmed Problem Anxiety disorder (026601219) Anxiety disorder, unspecified (F41.9) Active confirmed Problem Gastro-esophageal reflux disease without esophagitis (859457554) Gastro-esophage al reflux disease without esophagitis (K21.9) Active confirmed Problem Calculus of kidney (48819200) Calculus of kidney (N20.0) Active confirmed Problem Essential hypertension (26737778) Essential hypertension (I10) Active confirmed Problem Vitamin D deficiency (24888117) Vitamin D deficiency (E55.9) Active confirmed Problem Gastroesophageal reflux disease (440782148) GERD without esophagitis (K21.9) Active confirmed Plan Of Treatment Pending Test Test Name Order Date Vitamin B12 05/03/2022 Vitamin B12 02/15/2023 Vitamin B12 05/19/2023 Lipids, Total, Serum 02/01/2019 Urinalysis, Routine 02/26/2015 TSH 05/03/2022 CBC With Differential/Platelet Vitamin D, 25-Hydroxy 05/03/2022 Hgb A1c with MBG Estimation 05/03/2022 Lipid Panel 05/03/2022 Lipid Panel 02/15/2023 Lipid Panel 05/19/2023 Comp. Metabolic Panel (14) 08/06/2022 Comp. Metabolic Panel (14) 05/03/2022 CBC 09/04/2018 Urinalysis 10/05/2019 Urinalysis 11/13/2019 xray 09/04/2018 Magnesium, Serum 05/19/2023 PT and PTT 03/17/2023 TSH+Free T4 05/19/2023 TSH+Free T4 04/23/2021 TSH+Free T4 02/15/2023 Lipid Panel 10/05/2019 PT with INR 03/17/2023 Thyroid Peroxidase (TPO) Ab 05/19/2023 COMP Metabolic Panel 09/04/2018 Kenalog Injection 09/04/2018 Kenalog Injection 02/15/2023 Kenalog Injection 05/19/2023 Toradol Injection 05/19/2023 Toradol Injection 02/15/2023 Vitamin -D 25-hidroxy 05/19/2023 Vitamin -D 25-hidroxy 02/15/2023 COMPREHENSIVE METABOLIC PANEL 10/05/2019 COMPREHENSIVE METABOLIC PANEL 02/01/2019 HEPATIC FUNCTION PANEL 09/04/2018 CBC (H/H, RBC, INDICES, WBC, PLT) 2018 CBC (H/H, RBC, INDICES, WBC, PLT) 2018 T3, FREE 02/15/2023 T3, FREE 05/19/2023 LIPID PANEL 09/04/2018 VITAMIN B12 02/01/2019 IRON, TIBC AND FERRITIN PANEL 05/19/2023 Hgb A1C 02/21/2023 CBC w/DIFF 05/19/2023 CBC w/DIFF 03/17/2023 CBC w/DIFF 02/15/2023 Urine PCR 09/14/2022 Vitamin B12 08/06/2022 CBC With Platelet And Differential 08/06 Iron with Transferrin Saturation 023 Lipid Panel 08/06/2022 TSH 08/06/2022 Vitamin D 25-Hydroxy 08/06/2022 CMP 02/15/2023 CMP 05/19/2023 Insurance Providers Payer Name Payer Address Payer Phone Subscriber Number Group Number Insured Name Patient Relationship to Insured Coverage Start Date Coverage End Date [employer] [address] [address] [place] [address] [id number] Haylie Todd Self - patient is the insured 6 9 Medical (General) History Medical History History ICD Code fatigue abd. pain lumbago Surgical History Surgery Date(Month/Year) cholecystectomy 2019
--- OUTSIDE RECORDS SUMMARY | 2025-07-09 15:21 | XMS_ITS | Encounter Summary ---
Author Organization [facility] n[facility] Address [address] [place] [address] Care Team Providers Care Choker Hooker Name Role Phone Winnie Mena STORE PLANNER Primary Care Provider [phone] Jaydon Lee MD Unavailable Alecia Duron STORE PLANNER Primary Care Provider [phone] Encounter Details Date Type Department Care Team (Late st Contact Info) Description 12/14/2022 Orders Only [facility] [address]st [place] [id number] Tona Moreno, CRYSTAL [address] [place] [address] Social History Tobacco Use Types Packs/Day Years Used Date Smoking Tobacco: Every Day Cigarettes Smokeless Tobacco: Never Alcohol Use Standard Drinks/Week Comments Never 0 (1 standard drink = 0.6 oz pur e alcohol) AUDIT-C Answer Date Recorded Q1: How often do you have a drink containing alc ohol? Monthly or less 12/15/2022 Q2: How many drinks containi ng alcohol do you have on a typical day when you are drinking? 1 or 2 12/15/2022 Q3: How often do you have si x or more drinks on one occasion? Never 12/15/2022 Exercise Vital Sign Answer Date Recorde d On average, how many days pe r week do you engage in moderate to strenuous exercise (like a brisk walk)? 0 days 12/15/2022 On average, how many minutes do you engage in exercise at this level? 0 min 12/15/2022 Comments Unknown Sex and Gender Information Value Date Recorded Sex Assigned at Female 12/16/2021 1:00 PM EST Legal Sex Female 1:00 PM EST Gender Identity Female 12/16/2021 1:00 PM EST Sexual Orientation Not on file COVID-19 Exposure Response Date Recorded In the last 10 days, have yo u been in contact with someone who was confirmed or suspected to have Coronavirus/COVID-19? No / Unsure 12/15/2022 8:40 AM EST documented as of this encounter Functional Status * AUDIT-C Score Answer Date of Assessment Author 1 12/15/2022 12:21 PM Ag Romero RN * AUDIT Alcohol Screening Question Answer Date of Assessment Author Q1: How often do you have a drink containing alcohol? Monthly or less 12/15/2022 12:21 PM Nenita Romero RN Q2: How many drinks containing alcohol do you have on a typical day when you are drinking? 1 or 2 12/15/2022 12:21 PM Misty Romero RN Q3: How often do you have six or more drinks on one occasion? Never 12/15/2022 12:21 PM Misty Romero RN documented as of this encounter Plan of Treatment Upcoming Encounters Date Type Department Care Team (Late st Contact Info) Description 07/26/2025 11:00 AM EDT Office Visit [facility] [address] [place] [address] Sue Carl NP [address] [place] [address] documented as of this encounter Visit Diagnoses Not on filedocumented in this encounter Care Teams Choker Hooker Relationship Specialty Start Date End Date Winnie Mena NP [address] [id number] PCP - General 12/15/22 Alecia Duron NP [address] [place] [address] PCP - General Family Medicine 12/16/22 Jaydon Lee MD [address] [place] [address] Surgeon Vascular Surgery 12/16/22 documented as of this encounter
--- OUTSIDE RECORDS SUMMARY | 2025-07-09 15:21 | XMS_ITS | Encounter Summary ---
Author Organization Healthcare Address [address] [place] [address] Care Team Providers Care Provider Relations Advocate Name Role Phone Nicholas Charles APRN Primary Care Provider [phone] Reason for Visit * Reason Onset Date Comments HCN - Patient Message 06/13/2025 Encounter Details Date Type Department Care Team (Late st Contact Info) Description 06/13/2025 Telephone [facility] Orthopaedic Surgery & Sports Medicine [address] [place] [address] Obie Sherman MD [address] [place] [address] HCN - Patient Message Social History Tobacco Use Types Packs/Day Years [...] any time in the past 12 m [facility], were you homeless or living in a fdc (including now)? No 04/15/2025 Utilities Answer Date Recorded In the past 12 months has th e [employer], gas, oil, or water company threatened to shut off services in your home? No 04/15/2025 Comments No Sex and Gender Information Value Date Recorded Sex Assigned at Not on file Legal Sex Female 6:12 PM EDT Gender Identity Not on file Sexual Orientation Not on file documented as of this encounter Miscellaneous Notes * Telephone Encounter - Lupe Patterson - 06/17/2025 9:53 AM EDT Patient and PT notified that xrays showed healing and unchanged fracture alignment so ok to start PT * Telephone Encounter - Ean Werner RN - 06/14/2025 3:29 PM EDT Called and got transferred to [facility]'s office, but there was no answer no VM option * Telephone Encounter - [place] - 06/13/2025 2:33 PM EDT Clinical Concern/Question Reason for Call: Lane albrecht. Pt went to physical therapy yesterday and they did not want to start PT until Dr has reviewed the last XR she had. Pt had the XR after she saw the Dr that day and has not heard anything about results. PT also was asking for a call regarding XR results so she would knowwhen she can start PT. Ramses Dunn at [facility] [phone]. Please call to advise Best contact number: [phone] (mobile) Optimal time of day to reach caller: ANYTIME Additional comments/information from caller: None Note: Please do not reply to this message. Follow-up communication and further actions as a result of this message need to be communicated with the patient directly, if the patient is not active onMyChart. If the patient is active on MyChart, they will receive notification of the communication/outcome via [employer]. documented in this encounter Plan of Treatment Upcoming Encounters Date Type Department Care Team (Latest Contact Info) Description 07/17/2025 1:15 PM EDT Pre-Admission Testing [facility] Anest[facility] [address] [place] [address] 08/12/2025 2:35 PM EST Hospital Encounter [facility] Operating Room [address] [place] [address] Obie Sherman MD [address] [place] [address] 08/12/2025 2:35 PM EST - 08/12/2025 4:45 PM EST Surgery [facility] Operating Room [address] [place] [address] Obie Sherman MD [address] [place] [address] ARTHROPLASTY, SHOULDER, TOTAL, REVERSE-RIGHT [[id number] (CPT )] 08/27/2025 3:20 PM EST Office Visit [facility] Orthopaedic Surgery & Sports Medicine [address] [place] [address] Obie Sherman MD [address] [place] [address] 09/30/2025 1:00 PM EST Office Visit [facility] [address] [place] [address] Romana Monsalve PA [address] [place] [address] Scheduled Procedures Name Priority Associated Diagnoses Date/Ti me ARTHROPLASTY, SHOULDER, TOTAL, REVERSE Closed fracture of proximal end of right humerus, unspecified fracture morphology, initial encounter 08/12/2025 2:35 PM EST documented as of this encounter Visit Diagnoses Not on filedocumented in this encounter Additional Health Concerns Assessment Noted Time A fall risk assessment has been complete d for the patient 05/23/2025 11:10 AM EDT A Body Mass Index follow-up plan has been documented for the patient 05/23/2025 5:06 PM EDT documented as of this encounter Care Teams Provider Relations Advocate Relationship Specialty Start Date End Date Nicholas Charles APRN [address] [place] [address] PCP - General 06/13/25 documented as of this encounter
--- OUTSIDE RECORDS SUMMARY | 2025-07-09 15:21 | XMS_ITS | Encounter Summary ---
Author Organization [facility] Address [address] [place] [address] Care Team Providers Care Butcher All Round Name Role Phone Susi Hanna MD Primary Care Provider + [phone] Encounter Details Date Type Department Care Team (Latest Contact Info) Description 05/23/2025 Travel Social History Tobacco Use Types Packs/Day Years [...] any time in the past 12 m onths, were you homeless or living in a nursing home (including now)? No 04/15/2025 Utilities Answer [...] on file documented as of this encounter Plan of Treatment Upcoming Encounters Date Type Department Care Team (Latest Contact Info) Description 07/17/2025 1:15 PM EDT Pre-Admission Testing [facility] Anesthesia [address] [place] [address] 08/12/2025 2:35 PM EST Hospital Encounter [facility] Operating Room [address] [place] [phone] Obie Sherman MD [address] [address] 08/12/2025 2:35 PM EST - 08/12/2025 4:45 PM EST Surgery [facility] Operating Room [address] [place] [phone] Obie Sherman MD [address] [place] [address] ARTHROPLASTY, SHOULDER, TOTAL, REVERSE-RIGHT [[id number] (CPT )] 08/27/2025 3:20 PM EST Office Visit [facility] Orthopaedic Surgery & Sports Medicine [address] [place] [address] Obie Sherman MD [address] [place] [address] 09/30/2025 1:00 PM EST Office Visit [facility] [address], [address] [place] [address] Romana Monsalve PA [address] [place] [address] Scheduled Procedures Name Priority Associated [...] documented as of this encounter Care Teams Butcher All Round Relationship Specialty Start Date End Date Susi Hanna MD [address] [place] [address] PCP - General 02/20/21 06/12/25 documented as of this encounter
--- OUTSIDE RECORDS SUMMARY | 2025-07-09 15:21 | XMS_ITS | Clinical Summary ---
Author Organization [facility] Address [address] [place] [address] Care Team Providers Care Carroting Machine Offbearer Name Role Phone Jaydon Lee MD Unavailable Alecia Duron NP Primary Care Provider [phone] Allergies Active Allergy Reactions Criticality Noted Date Comments Codeine Nausea And Vomiting 08/03/2019 Sulfate Hives High 08/03/2019 Medications cholecalciferol (Vitamin D-3) 50 MCG (1999) capsule Take 1 capsule (50 mcg) by mouth in the morning. 2 Active cyclobenzaprine (Flexeril) 10 MG tablet Take 1 tablet (10 mg) by mouth if needed in the morning and at bedtime. 2 Active gabapentin (Neurontin) 400 MG capsule Take 1 capsule (400 mg) by mouth in the morning and at bedtime. 2 Active hydrocortisone- pramoxine (Proctofoam HC) 1-1 % rectal foam Insert into the rectum in the morning and at bedtime. 10 g 3 2 Active losartan (Cozaar) 100 MG tabletIndicatio ns:hold if SBP less than 120 or DBP less than 80 Take 1 tablet (100 mg) by mouth in the morning. 30 tablet 11 3 Active Additional Information Patient not taking.Reported on 09/23/2023 nitroglycerin (Nitrostat) 0.[address] 1 tablet (0.4 mg) under the tongue every 5 (five) minutes if needed for chest pain. Call 911 if second tablet needed after resting 5 minutes. 100 tablet 11 3 Active DULoxetine (Cymbalta) [address] capsule 3 Active ondansetron (Zofran) 8 MG tablet 2 Active HYDROcodone-tam taminophen (Martelle) 7.5-325 MG tablet Take 1 tablet by mouth if needed in the morning, at noon, in the evening, and at bedtime. Active multivitamin (Theragran) tablet Take 1 tablet by mouth in the morning. Active Active Problems Problem Noted Date Diagnosed Date Carotid artery disease without cerebral infarcti on 01/03/2023 Bilateral carotid artery stenosis 12/27/2022 Overview (12/27/2022): Added automatically from request for surgery [id number] Renal artery stenosis 12/15/2022 Other chest pain 12/03/2022 Overview (12/03/2022): Added automatically from request for surgery [id number] Family History Medical History Relation Name Comments No Known Problems Brother No Known Problems Daughter No Known Problems Father No Known Problems Father's Brother No Known Problems Father's Sister No Known Problems Maternal Grandfather No Known Problems Maternal Grandmother No Known Problems Mother No Known Problems Mother's Brother No Known Problems Mother's Sister Heart disease Other No Known Problems Paternal Grandfather No Known Problems Paternal Grandmother No Known Problems Sister No Known Problems Son Relation Name Status Comments Brother Daughter Father Father's Brother Father's Sister Maternal Grandfather Maternal Grandmother Mother Mother's Brother Mother's Sister Other Paternal Grandfather Paternal Grandmother Sister Son Social History Tobacco Use Types Packs/Day Years Used Date Smoking Tobacco: Every Day Cigarettes 1 21.7 Started: 2003 Passive Smoke Exposure: Current Smokeless Tobacco: Never Tobacco Cessation:Ready to Q uit: No; Counseling Given: No Alcohol Use Standard Drinks/Week Comments Never 0 (1 standard drink = 0.6 oz pur e alcohol) Humiliation, Afraid, Rape, and Kick questionnair e Answer Date Recorded Within the last year, have y ou been afraid of your partner or ex-partner? No 01/04/2023 Within the last year, have y ou been humiliated or emotionally abused in other ways by your partner or ex-partner? No Within the last year, have y ou been kicked, hit, slapped, or otherwise physically hurt by your partner or ex-partner? No 01/04/2023 Within the last year, have y ou been raped or forced to have any kind of sexual activity by your partner or ex-partner? No 01/04/2023 Social Connection and Isolation Panel Answer Date Recorded In a typical week, how many times do you talk on the phone with family, friends, or neighbors? Twice a week 01/05/20 How often do you get togethe r with friends or relatives? Twice a week 01/04/2023 How often do you attend chur ch or baptism services? 1 to 4 times per year 01/04/2023 Do you belong to any clubs o r organizations such as hindu groups, unions, fraternal or athletic groups, or school groups? No 01/04/2023 How often do you attend meet ings of the clubs or organizations you belong to? 1 to 4 times per year 01/04/2023 Are you , , di vorced, , never , or living with a partner? 01/04/2023 AUDIT-C Answer Date Recorded Q1: How often do you have a drink containing alcohol? Never 01/03/2023 Q2: How many drinks containi ng alcohol do you have on a typical day when you are drinking? Patient does not drink Q3: How often do you have si x or more drinks on one occasion? Never 01/03/2023 Overall Financial Resource Strain (CARDIA) Answe r Date Recorded How hard is it for you to pa y for the very basics like food, housing, medical care, and heating? Not very hard 01/04/2023 PHQ-2 Answer Date Recorded Patient Health Questionnaire-2 Score 3 09/18/2024 [facility] - Occupational Stress Questionnaire Answer Date Recorded Do you feel stress - tense, restless, nervous, or anxious, or unable to sleep at night because your mind is troubled all the time - these days? Only a little 01/04/2023 Exercise Vital Sign Answer Date Recorde d On average, how many days pe r week do you engage in moderate to strenuous exercise (like a brisk walk)? 0 days 01/03/2023 On average, how many minutes do you engage in exercise at this level? 0 min 01/03/2023 Hunger Vital Sign Answer Date Recorded Within the past 12 months, y ou worried that your food would run out before you got the money to buy more. Never true 01/05/20 23 Within the past 12 months, t he food you bought just didn't last and you didn't have money to get more. Never true 01/04/2023 PRAPARE - Transportation Answer Date Re corded In the past 12 months, has l ack of transportation kept you from medical appointments or from getting medications? No 12/09 In the past 12 months, has l ack of transportation kept you from meetings, work, or from getting things needed for daily living? No 01/04/2023 Housing Stability Vital Sign Answer Irvin e Recorded In the last 12 months, was t here a time when you were not able to pay the mortgage or rent on time? No 01/04/2023 In the last 12 months, how many places have you lived? 1 01/04/2023 In the last 12 months, was t here a time when you did not have a steady place to sleep or slept in a long-term (including now)? No 01/04/2023 Comments No Sex and Gender Information Value Date Recorded Sex Assigned at Female 12/16/2021 1:00 PM EST Legal Sex Female 1:00 PM EST Gender Identity Female 12/16/2021 1:00 PM EST Sexual Orientation Not on file Last Filed Vital Signs Vital Sign Reading Time Taken Comments Blood Pressure 173/84 01/24/2025 11:46 AM EDT Pulse 66 01/24/2025 11:45 AM EDT Temperature 36.3 C (97.4 F) 09/18/2024 4:22 PM EST Respiratory Rate 20 09/18/2024 4:22 PM EST Oxygen Saturation 97% 01/24/2025 11:45 AM EDT Inhaled Oxygen Concentration - - Weight 69.9 kg (154 lb) 01/24/2025 11:45 AM EDT Height 160 cm (5' 3 ) 01/24/2025 11:45 AM EDT Body Mass Index 27.28 01/24/2025 11:45 AM EDT Plan of Treatment Upcoming Encounters Date Type Department Care Team (Late st Contact Info) Description 07/26/2025 11:00 AM EDT Office Visit [facility] [address] [place] [address] Sue Carl NP [address] [place] [address] Health Maintenance Due Date Last Done Comments CT Colonography 1956 ColoGuard Screening 1956 Colonoscopy 1956 Colorectal Cancer Screening 1956 FIT-DNA 1956 FIT 1956 FOBT 1956 Sigmoidoscopy 1956 DTaP/Tdap/Td Vaccines (1 - Tdap) 1975 Pneumococcal Vaccine (1 of 2 - PCV) 1975 Mammogram 1996 Lung Cancer Screening Shared Decision Making 2006 Bone Density Scan 04/15/2022 04/15/2021, 04/15/2021 Influenza Vaccine (#1) 2025 , 09/12/2023 RSV 60+ and patient s (1 - 1-dose 75+ series) 2031 RSV under 20 month Aged Out No longer eligible based on patient's age to complete this topic Medical Devices Implanted Type Area Safety Clothing And Equipment Developer Device Identifier Shelf Expiration Date Model / Serial / Lot Stent Rene [employer] Sd [id number] - [id number] - [id number] Implanted:Qty: 1 on 12/15/2022 by Jorge Foley MD at [facility] Stent [employer] AISLINN [id number] 06/28/2025 [id number] / [id number] / [id number] Tt Peripatch Bovine Pericardial 8x8 8p8 - [id number] Implanted:Qty: 1 on 01/03/2023 by Jaydon Lee MD at [facility] Left: Carotid [employer] 08/06/2028 [id number] / / [id number] Procedures Procedure Name Priority Date/Time Associated Diagnosis Comments DEXA BONE DENSITY EXTREMITY Routine 04/15/2021 8:04 AM EDT from Last 3 Months or Most Recently Relevant to Health Maintenance Results * DEXA bone density extremity (04/15/2021 8:04 AM EDT) Anatomical Region Laterality Modality Body Radiographic Velia ging 04/15/2021 8:04 AM EDT Narrative 04/16/2021 7:32 AM EDT AP SPINE (L1-L4): BMD 0.794 T-SCORE -2.3 Z-SCORE -0.6 CLASSIFICATION: OSTEOPENIA HIP: TOTAL BMD 0.810 T-SCORE -1.1 Z-SCORE 0.1 NECK BMD 0.684 T-SCORE -1.5 Z-SCORE 0.0 TROCH BMD 0.521 T-SCORE -1.8 Z-SCORE -0.7 CLASSIFICATION: OSTEOPENIA Change from prior scan of 09/26/2014 L1-L4 -5.3% Femur -5.4% GENERAL INFORMATION: From the National Osteoporosis Foundation Defining Osteoporosis by BMD The World Health Organization has established the following definitions based on bone mass measurement at the spine, hip, or wrist in white postmenopausal women: NORMAL: BMD is within 1 SD of a young normal adult (T-score at -1.0 and above). OSTEOPENIA: Low bone mass. BMD is between 1 and 2.5 SD below that of a young normal adult (T-score between -1 and -2.5) OSTEOPOROSIS: BMD is 2.5 SD or more below that of a young normal adult (T-score at or below -2.5) Women in this group who have already experienced one or more fractures are deemed to have severe or established osteoporosis. Although these definitions are necessary to establish the prevalence of osteoporosis, they should not be sued as the sole determinant of treatment decisions. NOTE: 1. The densitometry reports also provide Z scores which represent the standard deviations (SD) from age and sex-matched control subjects. 2. The Z score can provide useful diagnostic information because a Z score of -2 or greater below the age and sex-matched control may suggest a secondary cause of osteoporosis. 3. For each 10% decrease in BMD, the fracture risk approximately doubles. Report Sign Date: 04/16/2021 7:30 AM, Electronically Signed By: Marcos Varghese MD Impression: SEE REPORT Procedure Note Cesar Varghese - 12/25/2021 AP SPINE (L1-L4): BMD 0.794 T-SCORE -2.3 Z-SCORE -0.6 CLASSIFICATION:OSTEOPENIA HIP: TOTAL BMD 0.810 T-SCORE -1.1 Z-SCORE 0.1 NECK BMD 0.684 T-SCORE -1.5 Z-SCORE 0.0 TROCH BMD 0.521 T-SCORE -1.8 Z-SCORE -0.7 CLASSIFICATION:OSTEOPENIA Change from prior scan of 09/26/2014 L1-L4 -5.3% Femur -5.4% GENERAL INFORMATION: From the National Osteoporosis Foundation Defining Osteoporosis by BMD The World Health Organization has established the following definitionsbased on bone mass measurement at the spine, hip, or wrist in whitepostmenopausal women: NORMAL: BMD is within 1 SD of a young normal adult (T-score at -1.0and above). OSTEOPENIA: Low bone mass. BMD is between 1 and 2.5 SD below that of a young normal adult (T-score between -1 and -2.5) OSTEOPOROSIS: BMD is 2.5 SD or more below that of a young normal adult(T-score at or below -2.5) Women in this group who have alreadyexperienced one or more fractures are deemed to have severe or established osteoporosis. Although these definitions are necessary to establish the prevalence ofosteoporosis, they should not be sued as the sole determinant of treatmentdecisions. NOTE: 1. The densitometry reports also provide Z scores which represent thestandard deviations (SD) from age and sex-matched control subjects. 2. The Z score can provide useful diagnostic information because a Zscore of -2 or greater below the age and sex-matched control may suggest asecondary cause of osteoporosis. 3. For each 10% decrease in BMD, the fracture risk approximatelydoubles. Report Sign Date: 04/16/2021 7:30 AM, Electronically Signed By: Marcos Varghese MD Impression: SEE REPORT Jenifer Fisher NP IMG DXA PROCEDURES Final Result from Last 3 Months or Most Recently Relevant to Health Maintenance Insurance [employer] MEDICARE (LEOTI) Advance Directives * Full Code (Latest Code Status on File) Date Activated Date Inactivated Comments 01/03/2023 12:50 PM 01/05/2023 2:53 PM * Full Code Date Activated Date Inactivated Comments 12/08/2022 7:21 AM 12/08/2022 3:07 PM Care Teams Carroting Machine Offbearer Relationship Specialty Start Date End Date Alecia Duron NP [address] [place] [id number] PCP - General Family Medicine 12/16/22 Jaydon Lee MD [address] [place] [address] Surgeon Vascular Surgery 12/16/22
--- OUTSIDE RECORDS SUMMARY | 2025-07-09 15:21 | XMS_ITS | Encounter Summary ---
Author Organization [facility] Address [address] [place] [address] Care Team Providers Care Insurance Customer Service Specialist Name Role Phone Nicholas Charles APRN Primary Care Provider [phone] Encounter Details Date Type Department Care Team (Latest Contact Info) Description 06/26/2025 Travel Social History Tobacco Use Types Packs/Day [...] were you homeless or living in a long-term (including now)? No 04/15/2025 Utilities Answer Date [...] Description 07/17/2025 1:15 PM EDT Pre-Admission Testing [facility] Anesthesia [address] [place] [address] 08/12/2025 2:35 PM EST Hospital Encounter [facility] Operating Room [address] [place] [phone] Obie Sherman MD [address] [address] 08/12/2025 2:35 PM EST - 08/12/2025 4:45 PM EST Surgery [facility] Operating Room [address] [place] [phone] Obie Sherman MD [address] [place] [address] ARTHROPLASTY, SHOULDER, TOTAL, REVERSE-RIGHT [[id number] (CPT )] 08/27/2025 3:20 PM EST Office Visit [facility] Orthopaedic Surgery & Sports Medicine [address], [address] [place] [address] Obie Sherman MD [address] [place] [address] 09/30/2025 1:00 PM EST Office Visit [facility] [address], [address] [place] [address] Romana Monsalve, GURVINDER [address] [place] [address] Scheduled Procedures Name Priority Associated Diagnoses Date/Ti me ARTHROPLASTY, SHOULDER, TOTAL, REVERSE Closed fracture of proximal end of right humerus, unspecified fracture morphology, initial encounter 08/12/2025 2:35 PM EST documented as of this encounter Goals Goal Patient Goal Type Associated Problems Recent Progress Patient-Stated? Author Autogenerat ed Goal Care Plan Autogenerated Problem No Bhavana Holder documented as of this encounter Visit Diagnoses Not on filedocumented in this encounter Additional Health Concerns Active Problems Noted Date Diagnosed Date Autogenerated Problem 06/26/2025 Assessment Noted Time A fall risk assessment has been complete d for the patient 06/26/2025 10:21 AM EDT A Body Mass Index follow-up plan has been documented for the patient 06/26/2025 2:18 PM EDT documented as of this encounter Care Teams Insurance Customer Service Specialist Relationship Specialty Start Date End Date Nicholas Charles APRN [address] [place], [place] [id number] PCP - General 06/13/25 documented as of this encounter
--- OUTSIDE RECORDS SUMMARY | 2025-07-09 15:21 | XMS_ITS | Encounter Summary ---
Author Organization [facility] Address [address] [place] [address] Care Team Providers Care Contract Mail Carrier Name Role Phone Susi Hanna MD Primary Care Provider + [phone] Encounter Details Date Type Department Care Team (Latest Contact Info) Description 05/15/2025 Travel Social History Tobacco Use Types Packs/Day [...] [facility] Anesthesia [address] [place] [address] 08/12/2025 2:35 PM EST Hospital Encounter [facility] Operating Room [address] [place] [phone] Obie Sherman MD [address] [address] 08/12/2025 2:35 PM EST - 08/12/2025 4:45 PM EST Surgery [facility] Operating Room [address] [place] [phone] Obie Sherman MD [address] [place] [address] ARTHROPLASTY, SHOULDER, TOTAL, REVERSE-RIGHT [[id number] (CPT )] 08/27/2025 3:20 PM EST Office Visit [facility] Orthopaedic Surgery & Sports Medicine [address] [place] [address] Obie Sherman MD [address] [place] [address] 09/30/2025 1:00 PM EST Office Visit [facility] [address] [place] [address] Romana Monsalve PA [address] [place] [address] Scheduled Procedures Name Priority Associated [...] documented as of this encounter Care Teams Contract Mail Carrier Relationship Specialty Start Date End Date Susi Hanna MD [address] [facility] [address] [place] [address] PCP - General 02/20/21 06/12/25 documented as of this encounter
--- OUTSIDE RECORDS SUMMARY | 2025-07-09 15:21 | XMS_ITS | Encounter Summary ---
Author Organization [facility] Address [address] [place] [address] Care Team Providers Care Mushroom Packer Name Role Phone Susi Hanna MD Primary Care Provider [phone] Encounter Details Date Type Department Care Team (Late st Contact Info) Description 05/17/2025 [facility] Orthopaedic Surgery & Sports Medicine [address] [place] [address] Obie Sherman MD [address] [place] [address] Social History Tobacco Use Types Packs/Day Years [...] any time in the past 12 m [facility], were you homeless or living in a fpc (including now)? No 04/15/2025 Utilities Answer Date [...] Pre-Admission Testing [facility] [address] [place] [address] 08/12/2025 2:35 PM EST Hospital Encounter [facility] Operating Room [address] [place] [address] Obie Sherman MD [address] [facility] [address] [place] [address] 08/12/2025 2:35 PM EST - 08/12/2025 4:45 PM EST Surgery [facility] Operating Room [address] [place] [address] Obie Sherman MD [address] [facility] [address] [place] [address] ARTHROPLASTY, SHOULDER, TOTAL, REVERSE-RIGHT [[id number] (CPT )] 08/27/2025 3:20 PM EST Office Visit [facility]opa[facility] Surgery [facility] Sports Medicine [address] [place] [address] Obie Sherman MD [address] [facility] [address] [place] [address] 09/30/2025 1:00 PM EST Office Visit [facility] [address] [facility], [address] [place] [address] Romana Monsalve, PA [address] [place] [address] Scheduled Procedures Name Priority Associated [...] documented as of this encounter Care Teams Mushroom Packer Relationship Specialty Start Date End Date Susi Hanna MD [facility] [address] [place] [address] PCP - General 02/20/21 06/12/25 documented as of this encounter
--- OUTSIDE RECORDS SUMMARY | 2025-07-09 15:21 | XMS_ITS | Clinical Summary ---
Author Organization [facility] Address [address] [place] [address] Care Team Providers Care Seam Feller Name Role Phone Nicholas Charles APRN Primary Care Provider [phone] Allergies Active Allergy Reactions Criticality Noted Date Comments Codeine Nausea And Vomiting, Rash,Unknown - Patient states they do not know rxn details Low 08/04/2016 Sulfa Drugs Rash Low 04/11/2025 Sulfate Hives High 08/03/2019 Medications atorvastatin (Lipitor) 20 MG tablet Take 1 tablet by mouth daily. Active clopidogrel (Plavix) 75 MG tablet Take 1 tablet by mouth daily. Active DULoxetine (Cymbalta) [address] capsule Take 1 capsule by mouth daily. 09/14/20 24 Active Neurontin 400 MG capsule Take 1 capsule by mouth 3 times a day. 03/18/20 25 Active ondansetron ODT (Zofran-ODT) [address] 1 tablet every 8 hours by translingual route as needed. Active metoprolol succinate XL (Toprol-XL) 25 MG 24 hr tablet Take 1 tablet by mouth daily. Do not crush or chew. Active nicotine (Nicoderm CQ) 21 MG/24HR patch Place 1 patch on the skin 1 (one) time each day at the same time. 30 patch 04/22/20 25 Active methocarbamol (Robaxin) 750 MG tablet Take 1 tablet by mouth 3 times a day. 90 tablet 04/22/20 25 Active naloxone (Narcan) 4 mg/0.1 mL nasal spray 1. Give 1 spray in nostril for no/slow breathing or cannot wake after opioid use 2. Call 911 3. Repeat in other nostril if symptoms continue 1 each 04/22/20 25 Active bisacodyl (Dulcolax) 10 MG suppository Insert 1 suppository into the rectum daily. 12 suppository 04/23/20 25 Active cholecalciferol (Vitamin D-3) 50 MCG (1999 UT) capsule Take 1 capsule by mouth daily. 09/14/20 24 Active HYDROcodone-aceta minophen ([employer]) 7.5-325 MG tablet 04/24/20 25 Active methylPREDNISolon e (Medrol Dospak) 4 MG tablets follow package directions 03/21/20 25 Active pantoprazole (Protonix) 40 MG EC tablet Take 1 tablet by mouth daily. 07/13/20 24 Active hydrocortisone (Proctozone-HC) 2.5 % rectal cream 06/18/20 16 Active multivitamin (Theragran) tablet Take 1 tablet by mouth 1 time each day. Active Active Problems Problem Noted Date Diagnosed Date Trauma 04/16/2025 History of renal calculi 04/13/2025 Overview (04/13/2025): - Punctate nonobstructing bilateral renal calculi, known PMHx. Assessment & Plan (04/21/2025 5:52 PM EDT): Follow up with PCP Assessment & Plan (04/20/2025 2:13 PM EDT): Follow up with PCP Assessment & Plan (04/19/2025 5:54 PM EDT): Follow up with PCP Assessment & Plan (04/18/2025 2:23 PM EDT): Follow up with PCP Assessment & Plan (04/17/2025 2:32 PM EDT): Follow up with PCP Assessment & Plan (04/16/2025 2:30 PM EDT): Follow up with PCP Assessment & Plan (04/15/2025 1:50 PM EDT): Follow up with PCP Assessment & Plan (04/14/2025 2:35 PM EDT): Follow up with PCP Lung granuloma 04/13/2025 Overview (04/13/2025): - As seen on CT: Calcified left upper lobe granuloma Assessment & Plan (04/21/2025 5:52 PM EDT): Follow up with PCP Assessment & Plan (04/20/2025 2:13 PM EDT): Follow up with PCP Assessment & Plan (04/19/2025 5:54 PM EDT): Follow up with PCP Assessment & Plan (04/18/2025 2:23 PM EDT): Follow up with PCP Assessment & Plan (04/17/2025 2:32 PM EDT): Follow up with PCP Assessment & Plan (04/16/2025 2:30 PM EDT): Follow up with PCP Assessment & Plan (04/15/2025 1:50 PM EDT): Follow up with PCP Assessment & Plan (04/14/2025 2:35 PM EDT): Follow up with PCP Subclavian artery stenosis 04/13/2025 Overview (04/13/2025): -Moderate short segment stenosis of the proximal left subclavian artery, with ulcerated plaque, versus small dissection flap Assessment & Plan (04/21/2025 5:52 PM EDT): Follow up with PCP Assessment & Plan (04/20/2025 2:13 PM EDT): Follow up with PCP Assessment & Plan (04/19/2025 5:54 PM EDT): Follow up with PCP Assessment & Plan (04/18/2025 2:23 PM EDT): Follow up with PCP Assessment & Plan (04/17/2025 2:32 PM EDT): Follow up with PCP Assessment & Plan (04/16/2025 2:30 PM EDT): Follow up with PCP Assessment & Plan (04/15/2025 1:50 PM EDT): Follow up with PCP Assessment & Plan (04/14/2025 2:35 PM EDT): Follow up with PCP Elbow joint effusion, right 04/13/2025 Overview (04/13/2025): -Small anterior elbow joint effusion Assessment & Plan (04/21/2025 5:52 PM EDT): - MMPC Assessment & Plan (04/20/2025 2:13 PM EDT): - MMPC Assessment & Plan (04/19/2025 5:54 PM EDT): - MMPC Assessment & Plan (04/18/2025 2:23 PM EDT): - MMPC Assessment & Plan (04/17/2025 2:32 PM EDT): - MMPC Assessment & Plan (04/16/2025 2:30 PM EDT): - MMPC Assessment & Plan (04/15/2025 1:50 PM EDT): - MMPC Assessment & Plan (04/14/2025 2:35 PM EDT): - MMPC Neftaly's node 04/13/2025 Overview (04/13/2025): - L4 vertebral body which could be due to a large Schmorl's node Bilateral renal cysts 04/13/2025 Overview (04/13/2025): -Multiple bilateral renal cysts and too small to characterize renal lesions with the largest in the left inferior pole measuring 22 mm Assessment & Plan (04/21/2025 5:52 PM EDT): Follow up with PCP Assessment & Plan (04/20/2025 2:13 PM EDT): Follow up with PCP Assessment & Plan (04/19/2025 5:54 PM EDT): Follow up with PCP Assessment & Plan (04/18/2025 2:23 PM EDT): Follow up with PCP Assessment & Plan (04/17/2025 2:32 PM EDT): Follow up with PCP Assessment & Plan (04/16/2025 2:30 PM EDT): Follow up with PCP Assessment & Plan (04/15/2025 1:50 PM EDT): Follow up with PCP Assessment & Plan (04/14/2025 2:35 PM EDT): Follow up with PCP Hyperglycemia 04/13/2025 Overview (04/13/2025): - Likely trauma response Assessment & Plan (04/21/2025 5:52 PM EDT): Likely related to trauma CTM Assessment & Plan (04/20/2025 2:13 PM EDT): Likely related to trauma CTM Assessment & Plan (04/19/2025 5:54 PM EDT): Likely related to trauma CTM Assessment & Plan (04/18/2025 2:23 PM EDT): Likely related to trauma CTM Assessment & Plan (04/17/2025 2:32 PM EDT): Likely related to trauma CTM Assessment & Plan (04/16/2025 2:30 PM EDT): Likely related to trauma CTM Leukocytosis 04/13/2025 Overview (04/13/2025): - Likely trauma related Assessment & Plan (04/21/2025 5:52 PM EDT): Likely related to trauma CTM Assessment & Plan (04/20/2025 2:13 PM EDT): Likely related to trauma CTM Assessment & Plan (04/19/2025 5:54 PM EDT): Likely related to trauma CTM Assessment & Plan (04/18/2025 2:23 PM EDT): Likely related to trauma CTM Assessment & Plan (04/17/2025 2:32 PM EDT): Likely related to trauma CTM Assessment & Plan (04/16/2025 2:30 PM EDT): Likely related to trauma CTM Critical polytrauma 04/12/2025 Assessment & Plan (04/21/2025 5:52 PM EDT): - Admit SGT Assessment & Plan (04/20/2025 2:13 PM EDT): - Admit SGT Assessment & Plan (04/19/2025 5:54 PM EDT): - Admit SGT Assessment & Plan (04/18/2025 2:23 PM EDT): - Admit SGT Assessment & Plan (04/17/2025 2:32 PM EDT): - Admit SGT Assessment & Plan (04/16/2025 2:30 PM EDT): - Admit SGT Assessment & Plan (04/15/2025 1:50 PM EDT): - Admit SGT Assessment & Plan (04/14/2025 2:35 PM EDT): - Admit SGT Assessment & Plan (04/13/2025 11:43 AM EDT): - Admit SGT Closed fracture of proximal end of right humerus 04/12/2025 Assessment & Plan (04/21/2025 5:52 PM EDT): Ortho consult- anticipate non-op, outpatient follow up in UE in clinic 04/24 Assessment & Plan (04/20/2025 2:13 PM EDT): Ortho consult- anticipate non-op, outpatient follow up in UE in clinic 04/24 Assessment & Plan (04/19/2025 5:54 PM EDT): Ortho consult- anticipate non-op, outpatient follow up in UE in clinic 04/24 Assessment & Plan (04/18/2025 2:23 PM EDT): Ortho consult- anticipate non-op, outpatient follow up in UE in clinic Assessment & Plan (04/17/2025 2:32 PM EDT): Ortho consult- anticipate non-op, outpatient follow up in UE in clinic Assessment & Plan (04/16/2025 2:30 PM EDT): Ortho consult- anticipate non-op, outpatient follow up in UE in clinic Assessment & Plan (04/15/2025 1:50 PM EDT): Ortho consult- anticipate non-op, final plan pending Assessment & Plan (04/14/2025 2:35 PM EDT): Ortho consult- anticipate non-op, final plan pending Assessment & Plan (04/13/2025 11:43 AM EDT): Ortho consult- anticipate non-op, final plan pending Assessment & Plan (04/12/2025 4:43 AM EDT): Ortho consult Closed compression fracture of body of L1 verteb ra 04/12/2025 Assessment & Plan (04/21/2025 5:52 PM EDT): NSGY consult: non-op, no brace required; f/u 8/14 Assessment & Plan (04/20/2025 2:13 PM EDT): NSGY consult: non-op, no brace required; f/u 8/14 Assessment & Plan (04/19/2025 5:54 PM EDT): NSGY consult: non-op, no brace required; f/u 8/14 Assessment & Plan (04/18/2025 2:23 PM EDT): NSGY consult: non-op, no brace required Assessment & Plan (04/17/2025 2:32 PM EDT): NSGY consult: non-op, no brace required Assessment & Plan (04/16/2025 2:30 PM EDT): NSGY consult: non-op, no brace required Assessment & Plan (04/15/2025 1:50 PM EDT): NSGY consult: non-op, no brace required Assessment & Plan (04/14/2025 2:35 PM EDT): NSGY consult: non-op, no brace required Assessment & Plan (04/13/2025 11:43 AM EDT): NSGY consult: non-op, no brace required Assessment & Plan (04/12/2025 4:43 AM EDT): NSGY consult Lumbar transverse process fr acture, closed, initial encounter 04/12/2025 Assessment & Plan (04/22/2025 1:53 PM EDT): NSGY consulted: Non-operative Assessment & Plan (04/21/2025 5:52 PM EDT): NSGY consulted: Non-operative Assessment & Plan (04/20/2025 2:13 PM EDT): NSGY consulted: Non-operative Assessment & Plan (04/19/2025 5:54 PM EDT): NSGY consulted: Non-operative Assessment & Plan (04/18/2025 2:23 PM EDT): NSGY consulted: Non-operative Assessment & Plan (04/17/2025 2:32 PM EDT): NSGY consulted: Non-operative Assessment & Plan (04/16/2025 2:30 PM EDT): NSGY consulted: Non-operative Assessment & Plan (04/15/2025 1:50 PM EDT): NSGY consulted: Non-operative Assessment & Plan (04/14/2025 2:35 PM EDT): NSGY consulted: Non-operative Assessment & Plan (04/13/2025 11:43 AM EDT): NSGY consulted: Non-operative Assessment & Plan (04/12/2025 4:43 AM EDT): Non-operative Hypertension 04/12/2025 Overview (04/12/2025): Resume home meds as able Assessment & Plan (04/21/2025 5:52 PM EDT): Restart home medications when appropriate Assessment & Plan (04/20/2025 2:13 PM EDT): Restart home medications when appropriate Assessment & Plan (04/19/2025 5:54 PM EDT): Restart home medications when appropriate Assessment & Plan (04/18/2025 2:23 PM EDT): Restart home medications when appropriate Assessment & Plan (04/17/2025 2:32 PM EDT): Restart home medications when appropriate Assessment & Plan (04/16/2025 2:30 PM EDT): Restart home medications when appropriate Coronary artery disease 04/12/2025 Assessment & Plan (04/21/2025 5:52 PM EDT): Resume home meds as appropriate Assessment & Plan (04/20/2025 2:13 PM EDT): Resume home meds as appropriate Assessment & Plan (04/19/2025 5:54 PM EDT): Resume home meds as appropriate Assessment & Plan (04/18/2025 2:23 PM EDT): Resume home meds as appropriate Assessment & Plan (04/17/2025 2:32 PM EDT): Resume home meds as appropriate Assessment & Plan (04/16/2025 2:30 PM EDT): Resume home meds as appropriate Assessment & Plan (04/15/2025 1:50 PM EDT): Resume home meds as appropriate Assessment & Plan (04/14/2025 2:35 PM EDT): Resume home meds as appropriate Assessment & Plan (04/13/2025 11:43 AM EDT): Resume home meds as appropriate Encounters Date Type Department Care Team Description 06/26/2025 2:00 PM EDT Office Visit [facility] [address], [address] [place] [address] Kylee Chong APRN Cord compression (CMS/HCC) (Primary Dx); Closed compression fracture of body of L1 vertebra (CMS/HCC); Hyperreflexia; Gait instability 06/26/2025 10:27 AM EDT - 06/26/2025 11:59 PM EDT Hospital Encounter [facility] [address], [address] [place] [address] Closed fracture of proximal end of right humerus, unspecified fracture morphology, initial encounter; Closed compression fracture of body of L1 vertebra (CMS/HCC) Discharge Disposition: Home or Self Care 06/26/2025 10:20 AM EDT Office Visit [facility] [address], [address] [place] [address] Obie Sherman MD Closed fracture of proximal end of right humerus, unspecified fracture morphology, initial encounter (Primary Dx) 06/26/2025 7:55 AM EDT - 06/26/2025 10:26 AM EDT Hospital Encounter [facility] [address], [address] [place] [phone] Age related osteoporosis, unspecified pathological fracture presence Discharge Disposition: Home or Self Care 06/26/2025 Travel 06/13/2025 Telephone [facility] [address], [address] [place] [address] Obie Sherman MD HCN - Patient Message 05/23/2025 11:20 AM EDT Office Visit [facility] [address], [address] [place] [address] Kylee Chong, REDDY Closed compression fracture of body of L1 vertebra (CMS/HCC) (Primary Dx); Bilateral hip pain; Age related osteoporosis, unspecified pathological fracture presence 05/23/2025 10:45 AM EDT - 05/23/2025 11:59 PM EDT Hospital Encounter [facility] [address], [address] [place] [address] Closed compression fracture of body of L1 vertebra (CMS/HCC) Discharge Disposition: Home or Self Care 05/23/2025 Travel 05/17/2025 Abstract [facility] [address], [address] [place] [address] Obie Sherman MD 05/15/2025 2:05 PM EDT - 05/15/2025 11:59 PM EDT Hospital Encounter [facility] [address], [address] [place] [address] Right shoulder pain, unspecified chronicity Discharge Disposition: Home or Self Care 05/15/2025 1:20 PM EDT Office Visit [facility] [address], [address] [place] [address] [address] [place] [address] Obie Sherman MD Closed fracture of proximal end of right humerus, unspecified fracture morphology, initial encounter (Primary Dx) 05/15/2025 Travel 04/21/2025 Travel 04/12/2025 Travel 04/11/2025 7:44 PM EDT - 04/22/2025 4:41 PM EDT Hospital Encounter [facility] [address] [place] [address] Trinity Darden MD Prabhu, Phu Jorgensen, Mckenzie Galeano MD Tucker, Brian K, Krishna Kelly, MD Pipe, Yesi MD Stan Luong Jessica K, MD Rodriguez, Rachel D, MD Wei, Helen S, MD Critical polytrauma (Primary Dx); Closed compression fracture of L1 vertebra, initial encounter ([facility]); Closed displaced fracture of surgical neck of right humerus, unspecified fracture morphology, initial encounter; Trauma; Lumbar transverse process fracture, closed, initial encounter ([facility]); Closed compression fracture of body of L1 vertebra ([facility]) Discharge Disposition: Home or Self Care 04/11/2025 Travel from Last 3 Months Immunizations Immunization Administration Dates Next Due Tdap 04/11/2025 Family History Medical History Relation Name Comments Coronary artery disease Father Cervical cancer Mother Cervical cancer Sister Relation Name Status Comments Father Mother Sister Social History Tobacco Use Types Packs/Day Years [...] in the past 12 m [facility], were you homeless or living in a custodial (including now)? No 04/15/2025 Utilities Answer Date Recorded In the past 12 months has th e electric, gas, oil, or water company threatened to shut off services in your home? No 04/15/2025 Comments No Sex and Gender Information Value Date Recorded Sex Assigned at Not on file Legal Sex Female 6:12 PM EDT Gender Identity Not on file Sexual Orientation Not on file Last Filed Vital Signs Vital Sign Reading Time Taken Comments Blood Pressure 149/77 06/26/2025 1:22 PM EDT Pulse 77 06/26/2025 10:22 AM EDT Temperature 36.8 C (98.3 F) 06/26/2025 10:22 AM EDT Respiratory Rate 12 04/22/2025 7:20 AM EDT Oxygen Saturation 98% 06/26/2025 10:22 AM EDT Inhaled Oxygen Concentration - - Weight 65.8 kg (145 lb) 06/26/2025 1:22 PM EDT Height 157.5 cm (5' 2 ) 06/26/2025 10:22 AM EDT Body Mass Index 26.52 06/26/2025 10:22 AM EDT Plan of Treatment Upcoming Encounters Date Type Department Care Team (Latest Contact Info) Description 07/17/2025 1:15 PM EDT Pre-Admission Testing [facility] [address] [place] [address] 08/12/2025 2:35 PM EST Hospital Encounter [facility] [address] [place] [address] Obie Sherman MD [address] [place] [phone] 08/12/2025 2:35 PM EST - 08/12/2025 4:45 PM EST Surgery [facility] [address] [place] [address] Obie Sherman MD [address] [place] [facility] [address] [place] [address] ARTHROPLASTY, SHOULDER, TOTAL, REVERSE-RIGHT [82072 (CPT )] 08/27/2025 3:20 PM EST Office Visit [facility] [address], [address] [place] [address] Obie Sherman MD [address] [place] [facility] [address] [place] [address] 09/30/2025 1:00 PM EST Office Visit [facility] [address], [address] [place] [address] Romana Monsalve, GURVINDER [address] [place] [address] Scheduled Procedures Name Priority Associated Diagnoses Date/Ti me ARTHROPLASTY, SHOULDER, TOTAL, REVERSE Closed fracture of proximal end of right humerus, unspecified fracture morphology, initial encounter 08/12/2025 2:35 PM EST Health Maintenance Due Date Last Done Comments [facility]-Depression Screening 1955 [facility]-Medicare Annual Wellness (AWV) 1955 [facility]-/Child/Adol SDOH Screenings 1955 [facility]-Pneumococcal Vaccine: 50+ Years (1 of 2 - PCV) 1975 CT Colonography 2001 Colonoscopy 2001 FIT-DNA 2001 FIT 2001 FOBT 2001 Sigmoidoscopy 2001 [facility]-Colorectal Cancer Screening 2001 [facility]-Breast Cancer Screening 2006 [facility]-Zoster Vaccines (1 of 2) 2006 [facility]-RSV Vaccine: 60+ Years or (1 - Risk 60-74 years 1-dose series) 2016 [id number] Vaccine (3 - season) 2025 02/20/2021, 01/21/2021 [facility]-Influenza Vaccine (#1) 2025 [facility]- SDOH Screenings 10/16/2025 [facility]-Adult SDOH Screenings 10/16/2025 04/15/2025 [facility]-Lung Cancer Screening 04/11/2026 04/11/2025 [facility]-Bone Density Scan 06/26/2026 06/26/2025 , 04/15/2021, 04/15/2021 [facility]-DTaP,Tdap,and Td Vaccines (2 - Td or Tdap) 04/11/2035 04/11/2025 [facility]-Hepatitis C Screening Completed 04/11/2025 [facility]-Obesity Intervention Completed 025, 06/26/2025, 05/23/2025, Additional history exists HPV Vaccines Aged Out No longer eligi ble based on patient's age to complete this topic [facility]-HIB Vaccines Aged Out No longer e ligible based on patient's age to complete this topic [facility]-Hepatitis A Vaccines Aged Out No longer eligible based on patient's age to complete this topic [facility]-IPV Vaccines Aged Out No longer e ligible based on patient's age to complete this topic [facility]-Rotavirus Vaccines Aged Out No lo nger eligible based on patient's age to complete this topic Goals Goal Patient Goal Type Associated Problems Recent Progress Patient-Stated? Author Autogenerat ed Goal Care Plan Autogenerated Problem No Bhavana Holder Procedures Procedure Name Priority Date/Time Associated Diagnosis Comments XR LUMBAR SPINE 4 VIEWS TO INCLUDE FLEXION EXTENSION Routine 06/26/2025 10:55 AM EDT Closed compression fracture of body of L1 vertebra (CMS/HCC) XR SHOULDER RIGHT 2+ VIEWS Routine 06/26/2025 10:55 AM EDT Closed fracture of proximal end of right humerus, unspecified fracture morphology, initial encounter DEXA BONE DENSITY Routine 06/26/2025 7:5 5 AM EDT Age related osteoporosis, unspecified pathological fracture presence XR LUMBAR SPINE 4 VIEWS TO INCLUDE FLEXION EXTENSION Routine 05/23/2025 11:01 AM EDT Closed compression fracture of body of L1 vertebra (CMS/HCC) XR SHOULDER RIGHT 2+ VIEWS Routine 05/15/2025 3:02 PM EDT Right shoulder pain, unspecified chronicity XR SHOULDER RIGHT 2+ VIEWS Routine 04/21/2025 1:49 PM EDT OXYGEN THERAPY STAT 04/15/2025 8:00 AM EDT OXYGEN THERAPY STAT 04/14/2025 8:00 PM EDT OXYGEN THERAPY STAT 04/14/2025 8:00 AM EDT OXYGEN THERAPY STAT 04/13/2025 8:00 PM EDT PEP THERAPY Routine 04/13/2025 2:55 PM EDT PHOSPHORUS, PLASMA Add-On 04/13/2025 8: 40 AM EDT MAGNESIUM, PLASMA Add-On 04/13/2025 8:4 0 AM EDT BASIC METABOLIC PANEL, PLASMA Routine 04/13/2025 8:40 AM EDT CBC W/O DIFFERENTIAL Routine 04/13/2025 8:40 AM EDT OXYGEN THERAPY STAT 04/13/2025 8:00 AM EDT OXYGEN THERAPY STAT 04/12/2025 8:00 PM EDT XR LUMBAR SPINE 2 OR 3 VIEWS Routine 04/12/2025 1:09 PM EDT OXYGEN THERAPY STAT 04/12/2025 8:00 AM EDT OPIATES, LCMSMS, URINE STAT 12:05 AM EDT FENTANYL, URINE STAT 04/12/2025 12:05 AM EDT URINALYSIS MICROSCOPIC FOR UA REFLEX STAT 04/12/2025 12:05 AM EDT URINALYSIS WITH REFLEX MICROSCOPIC STAT 04/12/2025 12:05 AM EDT DRUG ABUSE SCREEN, URINE STAT 04/12/2025 12:[address] SHOULDER RIGHT WO IV CONTRAST STAT 04/11/2025 10:49 PM EDT XR ELBOW RIGHT 3+ VIEWS STAT 04/11/20 9:12 PM EDT XR HUMERUS RIGHT 2+ VIEWS STAT 04/11/2025 9:12 PM EDT XR SHOULDER RIGHT 2+ VIEWS STAT 04/11/2025 9:12 PM EDT XR PELVIS 1 OR 2 VIEWS STAT 9:12 PM EDT XR CHEST 1 VIEW STAT 04/11/2025 9:[address] BONY PELVIS STAT 04/11/2025 8:[address] LUMBAR SPINE WO IV CONTRAST STAT 04/11/2025 8:[address] THORACIC SPINE WO IV CONTRAST STAT 04/11/2025 8:[address] CERVICAL SPINE WO IV CONTRAST STAT 04/11/2025 8:[address] ANGIO ABDOMEN PELVIS STAT 04/11/20 8:[address] ANGIO CHEST STAT 04/11/2025 8:[address] ANGIO NECK STAT 04/11/2025 8:[address] HEAD WO IV CONTRAST STAT 8:[address] ANGIO HEAD STAT 04/11/2025 8:44 PM EDT ED HIV 1/2 ANTIBODY/ANTIGEN SCREEN WITH REFLEX TO HIV I/II DIFFERENTIATION STAT 04/11/2025 8:05 PM EDT ED PROTOCOL HIV 1/2 ANTIBODY/ANTIGEN SCREEN W/REFLEX TO HIV 1/2 ANTIBODY DIFFERENTIATION STAT 04/11/2025 8:05 PM EDT HEPATITIS C ANTIBODY - ED W/REFLEX TO HCV QUANT PCR STAT 04/11/2025 8:05 PM EDT TYPE AND SCREEN STAT 04/11/2025 8:05 PM EDT TEST QUALITATIVE PLASMA STAT 04/11/2025 8:05 PM EDT ETHYL ALCOHOL PLASMA STAT 04/11/2025 8:05 PM EDT APTT STAT 04/11/2025 8:05 PM EDT PROTHROMBIN TIME(PT) / INR STAT 04/11/2025 8:05 PM EDT CBC W/O DIFFERENTIAL STAT 04/11/2025 8:05 PM EDT COMPREHENSIVE METABOLIC PANEL, PLASMA STAT 04/11/2025 8:05 PM EDT TRAUMA SHOCK PANEL BLOOD GAS STAT 04/11/2025 8:05 PM EDT OXYGEN THERAPY STAT 04/11/2025 8:00 PM EDT OXYGEN THERAPY STAT 04/11/2025 7:48 PM EDT OXYGEN THERAPY STAT 04/11/2025 7:48 PM EDT OXYGEN THERAPY STAT 04/11/2025 7:48 PM EDT from Last 3 Months Results * XR Shoulder Right 2+ Views (06/26/2025 10:55 AM EDT) Only the most recent of4 resultswithin the time period is included. Anatomical Region Laterality Modality Upper Extremities, Shoulder [...] Valle MD on 06/26/2025 11:18 AM us Obie Sherman MD IMG XR PROCEDURES Final Resu lt * XR Lumbar Spine 4+ Views w Flexion Extension (06/26/2025 10:55 AM EDT) Only the most recent of2 resultswithin the time period is included. Anatomical Region Laterality Modality Spine, L-spine Digital [...] on 06/26/2025 11:18 AM us Kylee Chong STAGE HAND IMG XR PROCEDURES Final Re sult * Dexa Bone Density (06/26/2025 7:55 AM EDT) Anatomical Region Laterality Modality L-spine Radiographic Velia ging Narrative 06/30/2025 10:51 AM EDT [facility] [address] [place] [address] DXA Bone Densitometry Report: [06/26/2025] BMD test performed using the [employer] DXA System (analysis version: 14.10) manufactured by [employer]. REFERRING PROVIDER: Dr. Kylee Chong, [place] CLINICAL [...] of change in BMD). Kylee Chong APRN [facility] DXA PROCEDURES Final R esult * (ABNORMAL) CBC W/O Differential (04/13/2025 8:40 AM EDT) Only the most recent of2 resultswithin the time period is included. WBC Count 12.31(H) 3.70 - 10.30 10*3/uL LAB HEMATOLOGY METHOD 04/13/2025 8:53 AM EDT [facility] RBC Count 3.15(L) 3.90 - 5.20 10*6/uL LAB HEMATOLOGY METHOD 04/13/2025 8:53 AM EDT [facility] HGB 10.1(L) 11.2 - 15.7 g/dL LAB HEMATOLOGY METHOD 04/13/2025 8:53 AM EDT [facility] HCT 30.9(L) 34.0 - 45.0 % LAB HEMATOLOGY METHOD 04/13/2025 8:53 AM EDT [facility] Platelet Count 216 155 - 369 10*3/uL LAB HEMATOLOGY METHOD 04/13/2025 8:53 AM EDT [facility] MCV 98 79 - 98 fL LAB HEMATOLOGY METHOD 04/13/2025 8:53 AM EDT [facility] MCH 32.1(H) 26.0 - 32.0 pg LAB HEMATOLOGY METHOD 04/13/2025 8:53 AM EDT [facility] MCHC 32.7 30.7 - 35.5 g/dL LAB HEMATOLOGY METHOD 04/13/2025 8:53 AM EDT [facility] RDW 14.0 11.5 - 14.5 % LAB HEMATOLOGY METHOD 04/13/2025 8:53 AM EDT [facility] MPV 9.4 8.8 - 12.5 fL LAB HEMATOLOGY METHOD 04/13/2025 8:53 AM EDT [facility] nRBC 0.0 <=0.0 per 100 WBCs LAB HEMATOLOGY METHOD 04/13/2025 8:53 AM EDT [facility] Blood Venous blood specimen / Unknown Venipuncture / Unknown 04/13/2025 8:40 AM EDT 04/13/2025 8:45 AM EDT us Pamela Gentile APRN LAB BLOOD ORDERABLES Final Res ult [facility] [address] [place] [address] * Phosphorus, Plasma (04/13/2025 8:40 AM EDT) Phosphorus, Plasma 2.8 2.5 - 4.5 mg/dL 04/13/2025 10:37 AM EDT [facility] Blood Venous blood specimen / Unknown Venipuncture / Unknown 04/13/2025 8:40 AM EDT 04/13/2025 8:45 AM EDT us Pamela Gentile [employer] LAB BLOOD ORDERABLES Final Res ult [facility] [address] [place] [address] * Magnesium, Plasma (04/13/2025 8:40 AM EDT) Magnesium, Plasma 2.1 1.9 - 2.4 mg/dL 04/13/2025 10:37 AM EDT [facility] Blood Venous blood specimen / Unknown Venipuncture / Unknown 04/13/2025 8:40 AM EDT 04/13/2025 8:45 AM EDT us Pamela Gentile [employer] LAB BLOOD ORDERABLES Final Res ult Performing Organization Address City/[facility]/ZIP Co de Phone Number [facility] [address] [place] [address] * (ABNORMAL) Basic metabolic panel (04/13/2025 8:40 AM EDT) Glucose, Plasma 102(H) 74 - 99 mg/dL 04/13/2025 9:14 AM EDT [facility] BUN, Plasma 30(H) 8 - 23 mg/dL 04/13/2025 9:14 AM EDT [facility] Creatinine, Plasma 0.85 0.60 - 1.10 mg/dL 04/13/2025 9:14 AM EDT [facility] BUN/Creatinine Ratio 35 04/13/2025 9:14 AM EDT [facility] Sodium, Plasma 138 136 - 145 mmol/L 04/13/2025 9:14 AM EDT [facility] Potassium, Plasma 4.3 3.6 - 4.9 mmol/L 04/13/2025 9:14 AM EDT [facility] Chloride, Plasma 103 97 - 107 mmol/L 04/13/2025 9:14 AM EDT [facility] CO2, Plasma 27 22 - 29 mmol/L 04/13/2025 9:14 AM EDT [facility] Anion Gap 8 6 - 16 mmol/L 04/13/2025 9:14 AM EDT [facility] Total Calcium, Plasma 8.3(L) 8.9 - 10.2 mg/dL 04/13/2025 9:14 AM EDT [facility] eGFRcr 74.7 mL/min/1.7 3m*2 04/13/2025 9:14 AM EDT [facility] Comment:Reported eGFRcr in m L/min/1.73m2 is based the CKD-EPI 2020 equation that does not use a race coefficient. Blood Venous blood specimen / Unknown Venipuncture / Unknown 04/13/2025 8:40 AM EDT 04/13/2025 8:45 AM EDT us Pamela Gentile [employer] LAB BLOOD ORDERABLES Final Res ult [facility] [address] [place] [address] * XR Lumbar Spine 2 or 3 Views (04/12/2025 1:09 PM EDT) Anatomical Region Laterality Modality Spine, L-spine Computed Radiogr aphy Impressions 04/12/2025 1:34 PM EDT Redemonstration of compression deformity of L1 and L4, grossly unchanged from recent CT. CRITICAL RESULT: No. COMMUNICATION: Per this written report. Drafted by Alphonse Ayon MD on 04/12/2025 1:32 PM Final report signed by Alphonse Ayon MD on 04/12/2025 1:34 PM Narrative 04/12/2025 1:34 PM EDT CLINICAL INDICATION: lumbar fxs TECHNIQUE: XR LUMBAR SPINE 2 OR 3 VIEWS COMPARISON: April 11, 2025 FINDINGS: Overlying bowel gas and content limit the evaluation of the lumbar spine Multiple overlying wires and tubes are seen. Diffuse osteopenia, which limits the evaluation of nondisplaced fractures. Kyphotic deformity of the thoracolumbar transitional. Grade 1 retrolisthesis L2 on L3, L3 on L4 and L4 on L5. Left lumbar spine scoliosis. Redemonstration of compression deformity of L1 and L4, grossly unchanged from recent CT. Unchanged multilevel degenerative changes. Procedure Note Alphonse Garcia MD - 04/12/2025 CLINICAL INDICATION: lumbar fxs TECHNIQUE: XR LUMBAR SPINE 2 OR 3 VIEWS COMPARISON: April 11, 2025 FINDINGS: Overlying bowel gas and content limit the evaluation of the lumbar spine Multiple overlying wires and tubes are seen. Diffuse osteopenia, which limits the evaluation of nondisplaced fractures. Kyphotic deformity of the thoracolumbar transitional. Grade 1 retrolisthesis L2 on L3, L3 on L4 and L4 on L5. Left lumbar spinescoliosis. Redemonstration of compression deformity of L1 and L4, grossly unchangedfrom recent CT. Unchanged multilevel degenerative changes. IMPRESSION: Redemonstration of compression deformity of L1 and L4, grossly unchangedfrom recent CT. CRITICAL RESULT: No. COMMUNICATION: Per this written report. Drafted by Alphonse Ayon MD on 04/12/2025 1:32 PM Final report signed by Alphones Ayon MD on 51:34 PM us Pamela Gentile APRN IMG XR PROCEDURES Final Result * Urinalysis Microscopic Examination (04/12/2025 12:05 AM EDT) Urine Urine specimen obtained by clean catch procedure / Unknown Non-blood Collection / Unknown 04/12/2025 12:05 AM EDT 04/12/2025 12:11 AM EDT us Trinity Darden MD LAB URINE ORDERABLES Final Res ult [facility] [address] [place] [address] * (ABNORMAL) Opiates Confirm Urine (04/12/2025 12:05 AM EDT) Codeine <50 <50 ng/mL 04/13/2025 3:39 PM EDT [facility] Codeine Glucuronide <50 <50 ng/mL 04/13/2025 3:39 PM EDT [facility] Desmethyl Tramadol <50 <50 ng/mL 04/13/2025 3:39 PM EDT [facility] EDDP - Methadone Metabolite <50 <50 ng/mL 04/13/2025 3:39 PM EDT [facility] Hydrocodone 410(H) <50 ng/mL 04/13/2025 3:39 PM EDT [facility] Hydromorphone 67(H) <50 ng/mL 04/13/2025 3:39 PM EDT [facility] Hydromorphone Glucuronide 198(H) <50 ng/mL 04/13/2025 3:39 PM EDT [facility] Comment:Metabolite of Hydrom orphone Meperidine <50 <50 ng/mL 04/13/2025 3:39 PM EDT [facility] Methadone <50 <50 ng/mL 04/13/2025 3:39 PM EDT [facility] 6 Monoacetyl morphine <10 <10 ng/mL 04/13/2025 3:39 PM EDT [facility] Morphine 262(H) <50 ng/mL 04/13/2025 3:39 PM EDT [facility] Morphine Glucuronide >1,000(H) <50 ng/mL 04/13/2025 3:39 PM EDT [facility] Comment:Metabolite of Morphi ne Naloxone <50 <50 ng/mL 04/13/2025 3:39 PM EDT [facility] Naloxone Glucuronide <50 <50 ng/mL 04/13/2025 3:39 PM EDT [facility] Comment:Metabolite of Naloxo ne Normeperidine <50 <50 ng/mL 04/13/2025 3:39 PM EDT [facility] Tramadol <50 <50 ng/mL 04/13/2025 3:39 PM EDT [facility] Urine Urine specimen obtained by clean catch procedure / Unknown Non-blood Collection / Unknown 04/12/2025 12:05 AM EDT 04/12/2025 12:11 AM EDT Narrative [facility] - 04/13/2025 3:39 PM EDT Drug analysis is confirmed by LC-MS/MS (LC Tandem Mass Spectrometry) on Urine specimens. This test was developed and its performance characteristics determined by [facility]. It has not been cleared or approved by the FDA. The laboratory is regulated under CLIA as qualified to perform high-complexity testing. This test is used for clinical purposes. Testing is performed at the [facility], [facility]. us Trinity Darden MD LAB URINE ORDERABLES Final Res ult [facility] [address] [place] [address] * Drug Abuse Screen, Urine (04/12/2025 12:05 AM EDT) [facility] Signature Amphetamine Screen Urine Negative Cutoff: 500 ng/mL 04/12/2025 12:43 AM EDT [facility] Benzodiazepines Screen Urine Negative Cutoff: 200 ng/mL 04/12/2025 12:43 AM EDT [facility] Cannabinoid Screen Urine Negative Cutoff: 50 ng/mL 04/12/2025 12:43 AM EDT [facility] Cocaine Screen Urine Negative Cutoff: 300 ng/mL 04/12/2025 12:43 AM EDT [facility] Barbiturate Screen Urine Negative Cutoff: 200 ng/mL 04/12/2025 12:43 AM EDT [facility] Opiate Screen Urine Presumptive positive. Confirmation by LC-MS/MS to follow. Cutoff: 300 ng/mL 04/12/2025 12:43 AM EDT [facility] Methadone Screen Urine Negative Cutoff: 300 ng/mL 04/12/2025 12:43 AM EDT [facility] Buprenorphine Screen Urine Negative Cutoff: 10 ng/mL 04/12/2025 12:43 AM EDT [facility] Fentanyl Screen Urine Presumptive positive. Confirmation by LC-MS/MS to follow. Cutoff: 1 ng/mL 04/12/2025 12:43 AM EDT [facility] Oxycodone Screen Urine Negative Cutoff: 100 ng/mL 04/12/2025 12:43 AM EDT [facility] Urine Urine specimen obtained by clean catch procedure / Unknown Non-blood Collection / Unknown 04/12/2025 12:05 AM EDT 04/12/2025 12:11 AM EDT Trinity Darden MD LAB URINE ORDERABLES Final Res ult [facility] [address] [place] [address] * (ABNORMAL) Fentanyl Urine Confirm (04/12/2025 12:05 AM EDT) Fentanyl 2(H) <1 ng/mL 04/13/2025 3:39 PM EDT [facility] Norfentanyl 2(H) <2 ng/mL 04/13/2025 3:39 PM EDT [facility] Urine Urine specimen obtained by clean catch procedure / Unknown Non-blood Collection / Unknown 04/12/2025 12:05 AM EDT 04/12/2025 12:11 AM EDT Narrative [facility] - 04/13/2025 3:39 PM EDT Drug analysis is confirmed by LC-MS/MS (LC Tandem Mass Spectrometry) on Urine specimens. This test was developed and its performance characteristics determined by [facility]. It has not been cleared or approved by the FDA. The laboratory is regulated under CLIA as qualified to perform high-complexity testing. This test is used for clinical purposes. Testing is performed at the [facility], [facility]. us Trinity Darden MD LAB URINE ORDERABLES Final Res ult Performing Organization Address [facility] Co de Phone Number [facility] [address] [place] [address] * (ABNORMAL) Urinalysis with reflex microscopic (Culture NOT Included) (04/12/2025 12:05 AM EDT) Color, Urine Yellow LAB URINALYSIS - AUTOMATED METHOD 04/12/2025 12:50 AM EDT [facility] Clarity, Urine Clear LAB URINALYSIS - AUTOMATED METHOD 04/12/2025 12:50 AM EDT [facility] Spec [place], Urine >1.030(H) 1.005 - 1.030 LAB URINALYSIS - AUTOMATED METHOD 04/12/2025 12:50 AM EDT [facility] pH, Urine 7.0 5.0 - 8.0 LAB URINALYSIS - AUTOMATED METHOD 04/12/2025 12:50 AM EDT [facility] Protein, Urine Trace(A) Negative mg/dL LAB URINALYSIS - AUTOMATED METHOD 04/12/2025 12:50 AM EDT [facility] Glucose, Urine Negative Negative mg/dL LAB URINALYSIS - AUTOMATED METHOD 04/12/2025 12:50 AM EDT [facility] Ketones, Urine Negative Negative mg/dL LAB URINALYSIS - AUTOMATED METHOD 04/12/2025 12:50 AM EDT [facility] Blood, Urine Trace(A) Negative LAB URINALYSIS - AUTOMATED METHOD 04/12/2025 12:50 AM EDT [facility] Bilirubin, Urine Negative Negative LAB URINALYSIS - AUTOMATED METHOD 04/12/2025 12:50 AM EDT [facility] Urobilinogen, Urine 1.0 0.2 to 1.0 mg/dL LAB URINALYSIS - AUTOMATED METHOD 04/12/2025 12:50 AM EDT [facility] Leukocytes, Urine Negative Negative LAB URINALYSIS - AUTOMATED METHOD 04/12/2025 12:50 AM EDT [facility] Nitrite, Urine Negative Negative LAB URINALYSIS - AUTOMATED METHOD 04/12/2025 12:50 AM EDT [facility] RBC, Urine 4 - 10(A) 0 to 3 /HPF LAB URINALYSIS - AUTOMATED METHOD 04/12/2025 12:50 AM EDT [facility] Comment:This result was prev iously suppressed from the chart. WBC, Urine 0 - 5 0 to 5 /HPF LAB URINALYSIS - AUTOMATED METHOD 04/12/2025 12:50 AM EDT [facility] Comment:This result was prev iously suppressed from the chart. Squamous Epithelial Cells 0 - 2 0 to 5 /HPF LAB URINALYSIS - AUTOMATED METHOD 04/12/2025 12:50 AM EDT [facility] Comment:This result was prev iously suppressed from the chart. Hyaline Casts 0 - 2 0 to 5 /LPF LAB URINALYSIS - AUTOMATED METHOD 04/12/2025 12:50 AM EDT [facility] Comment:This result was prev iously suppressed from the chart. Bacteria, Urine Negative Negative LAB URINALYSIS - AUTOMATED METHOD 04/12/2025 12:50 AM EDT [facility] Comment:This result was prev iously suppressed from the chart. Urine Urine specimen obtained by clean catch procedure / Unknown Non-blood Collection / Unknown 04/12/2025 12:05 AM EDT 04/12/2025 12:11 AM EDT us Trinity Darden MD LAB URINE ORDERABLES Final Res ult [facility] [address] [place] [address] * CT Shoulder Right wo IV Contrast (04/11/2025 10:49 PM EDT) Anatomical Region Laterality Modality Shoulder Right Computed Tomogra phy Impressions 04/11/2025 11:59 PM EDT Comminuted and displaced fracture of the proximal right humerus as above. CRITICAL RESULT: No. COMMUNICATION: Per this written report. Preliminary report signed by Kianna Rodríguez MD on 04/11/2025 11:54 PM By electronically signing this report, I, the attending physician, attest that I have personally reviewed the images/data for the above examination(s) and agree with the final edited report. Drafted by Kianna Rodríguez MD on 04/11/2025 11:51 PM Final report signed by Prasad Beebe MD on 04/11/2025 11:59 PM Narrative 04/11/2025 11:59 PM EDT CLINICAL INDICATION: Shoulder trauma, fracture of humerus or scapula TECHNIQUE: Multiple axial CT images of the right shoulder were obtained without contrast administration. Reformatted images in the coronal and/or sagittal plane(s) were generated from the axial data set to facilitate diagnostic accuracy and/or surgical planning. Total DLP (Dose-Length Product): 3212.56 mGy*cm. Please note: The reported value represents the total of one or more individual components during the CT acquisition on this date and at this time, and as such, the same value may appear in more than one CT report depending on the interpreting/reporting physicians. COMPARISON: CTA chest and right shoulder radiographs, same day. FINDINGS: Comminuted and displaced oblique fracture of the surgical neck of the humerus extending through the greater tuberosity of the head. There is anterolateral displacement of the distal fracture segment with slight impaction of the distal fracture segment into the humeral head. The glenohumeral and acromioclavicular joints appear intact. The scapula is intact. There is surrounding hematoma and stranding of the proximal arm about the fracture. Right subclavian, axillary, and visualized portion of brachial artery appear patent. Procedure Note Prasad Beebe MD - 04/12/2025 CLINICAL INDICATION: Shoulder trauma, fracture of humerus or scapula TECHNIQUE: Multiple axial CT images of the right shoulder were obtained withoutcontrast administration. Reformatted images in the coronal and/or sagittalplane(s) were generated from the axial data set to facilitate diagnosticaccuracy and/or surgical planning. Total DLP (Dose-Length Product): 3212.56 mGy*cm. Please note: The reportedvalue represents the total of one or more individual components during theCT acquisition on this date and at this time, and as such, the same valuemay appear in more than one CT report depending on theinterpreting/reporting physicians. COMPARISON: CTA chest and right shoulder radiographs, same day. FINDINGS: Comminuted and displaced oblique fracture of the surgical neck of thehumerus extending through the greater tuberosity of the head. There isanterolateral displacement of the distal fracture segment with slightimpaction of the distal fracture segment into the humeral head. Theglenohumeral and acromioclavicular joints appear intact. The scapula isintact. There is surrounding hematoma and stranding of the proximal armabout the fracture. Right subclavian, axillary, and visualized portion ofbrachial artery appear patent. IMPRESSION: Comminuted and displaced fracture of the proximal right humerus as above. CRITICAL RESULT: No. COMMUNICATION: Per this written report. Preliminary report signed by Kianna Rodríguez MD on 04/11/2025 11:54 PM By electronically signing this report, I, the attending physician, attestthat I have personally reviewed the images/data for the aboveexamination(s) and agree with the final edited report. Drafted by Kianna Rodríguez MD on 04/11/2025 11:51 PM Final report signed by Prasad Beebe MD on 04/11/2025 11:59 PM Bari Santos MD IMG CT PROCEDURES Final Result * XR Pelvis 1 or 2 Views (04/11/2025 9:12 PM EDT) Anatomical Region Laterality Modality Body, Pelvis Digital Radiogra phy Impressions 04/11/2025 9:51 PM EDT No acute cardiopulmonary findings. No acute pelvic fracture. Comminuted and displaced fracture of the surgical neck of the right humerus as above. Small anterior elbow joint effusion without obvious fracture. If there is clinical concern for occult fracture, CT could be performed for further evaluation. CRITICAL RESULT: No. COMMUNICATION: Per this written report. Preliminary report signed by Kianna Rodríguez MD on 04/11/2025 9:31 PM By electronically signing this report, I, the attending physician, attest that I have personally reviewed the images/data for the above examination(s) and agree with the final edited report. Drafted by Kianna Rodríguez MD on 04/11/2025 9:26 PM Final report signed by Rickey Martínez MD on 04/11/2025 9:51 PM Narrative 04/11/2025 9:51 PM EDT CLINICAL INDICATION: TRAUMA TECHNIQUE: XR CHEST 1 VIEW, XR ELBOW RIGHT 3+ VIEWS, XR HUMERUS RIGHT 2+ VIEWS, XR SHOULDER RIGHT 2+ VIEWS, XR PELVIS 1 OR 2 VIEWS COMPARISON: None. FINDINGS: Chest: The cardiomediastinal silhouette is within normal limits. Atherosclerosis of the aortic knob. No consolidation, pleural effusion or pneumothorax. Pelvis: No acute fracture or dislocation. The femoral heads are seated within the acetabula bilaterally. The sacroiliac joints are intact. No widening of the pubic symphysis. Right shoulder: Comminuted and displaced fracture of the surgical neck of the humerus with fracture appearing to extend into the greater tuberosity of the humeral head. There is lateral displacement of the distal fracture fragment. The glenohumeral joint appears intact. The acromioclavicular joint is intact. There is surrounding hematoma and subcutaneous stranding. Right humerus: Displace fracture of the proximal humerus as above. The remainder of the humerus is intact. Right elbow: No discrete fracture. No dislocation. Small anterior elbow joint effusion. Procedure Note Rickey Martínez MD - 04/11/2025 CLINICAL INDICATION: TRAUMA TECHNIQUE: XR CHEST 1 VIEW, XR ELBOW RIGHT 3+ VIEWS, XR HUMERUS RIGHT 2+ VIEWS, XRSHOULDER RIGHT 2+ VIEWS, XR PELVIS 1 OR 2 VIEWS COMPARISON: None. FINDINGS: Chest: The cardiomediastinal silhouette is within normal limits.Atherosclerosis of the aortic knob. No consolidation, pleural effusion orpneumothorax. Pelvis: No acute fracture or dislocation. The femoral heads are seatedwithin the acetabula bilaterally. The sacroiliac joints are intact. Nowidening of the pubic symphysis. Right shoulder: Comminuted and displaced fracture of the surgical neck ofthe humerus with fracture appearing to extend into the greater tuberosityof the humeral head. There is lateral displacement of the distal fracturefragment. The glenohumeral joint appears intact. The acromioclavicularjoint is intact. There is surrounding hematoma and subcutaneousstranding. Right humerus: Displace fracture of the proximal humerus as above. Theremainder of the humerus is intact. Right elbow: No discrete fracture. No dislocation. Small anterior elbowjoint effusion. IMPRESSION: No acute cardiopulmonary findings. No acute pelvic fracture. Comminuted and displaced fracture of the surgical neck of the righthumerus as above. Small anterior elbow joint effusion without obvious fracture. If there isclinical concern for occult fracture, CT could be performed for furtherevaluation. CRITICAL RESULT: No. COMMUNICATION: Per this written report. Preliminary report signed by Kianna Rodríguez MD on 04/11/2025 9:31 PM By electronically signing this report, I, the attending physician, attjuaquinthat I have personally reviewed the images/data for the aboveexamination(s) and agree with the final edited report. Drafted by Kianna Rodríguez MD on 04/11/2025 9:26 PM Final report signed by Rickey Martínez MD on 04/11/2025 9:51 PM us Trinity Darden MD IMG XR PROCEDURES Final Result * XR Chest 1 View (04/11/2025 9:12 PM EDT) Anatomical Region Laterality Modality Chest Digital Radiogra phy Impressions 04/11/2025 9:51 PM EDT No acute cardiopulmonary findings. No acute pelvic fracture. Comminuted and displaced fracture of the surgical neck of the right humerus as above. Small anterior elbow joint effusion without obvious fracture. If there is clinical concern for occult fracture, CT could be performed for further evaluation. CRITICAL RESULT: No. COMMUNICATION: Per this written report. Preliminary report signed by Kianna Rodríguez MD on 04/11/2025 9:31 PM By electronically signing this report, I, the attending physician, attest that I have personally reviewed the images/data for the above examination(s) and agree with the final edited report. Drafted by Kianna Rodríguez MD on 04/11/2025 9:26 PM Final report signed by Rickey Martínez MD on 04/11/2025 9:51 PM Narrative 04/11/2025 9:51 PM EDT CLINICAL INDICATION: TRAUMA TECHNIQUE: XR CHEST 1 VIEW, XR ELBOW RIGHT 3+ VIEWS, XR HUMERUS RIGHT 2+ VIEWS, XR SHOULDER RIGHT 2+ VIEWS, XR PELVIS 1 OR 2 VIEWS COMPARISON: None. FINDINGS: Chest: The cardiomediastinal silhouette is within normal limits. Atherosclerosis of the aortic knob. No consolidation, pleural effusion or pneumothorax. Pelvis: No acute fracture or dislocation. The femoral heads are seated within the acetabula bilaterally. The sacroiliac joints are intact. No widening of the pubic symphysis. Right shoulder: Comminuted and displaced fracture of the surgical neck of the humerus with fracture appearing to extend into the greater tuberosity of the humeral head. There is lateral displacement of the distal fracture fragment. The glenohumeral joint appears intact. The acromioclavicular joint is intact. There is surrounding hematoma and subcutaneous stranding. Right humerus: Displace fracture of the proximal humerus as above. The remainder of the humerus is intact. Right elbow: No discrete fracture. No dislocation. Small anterior elbow joint effusion. Procedure Note Rickey Martínez MD - 04/11/2025 CLINICAL INDICATION: TRAUMA TECHNIQUE: XR CHEST 1 VIEW, XR ELBOW RIGHT 3+ VIEWS, XR HUMERUS RIGHT 2+ VIEWS, XRSHOULDER RIGHT 2+ VIEWS, XR PELVIS 1 OR 2 VIEWS COMPARISON: None. FINDINGS: Chest: The cardiomediastinal silhouette is within normal limits.Atherosclerosis of the aortic knob. No consolidation, pleural effusion orpneumothorax. Pelvis: No acute fracture or dislocation. The femoral heads are seatedwithin the acetabula bilaterally. The sacroiliac joints are intact. Nowidening of the pubic symphysis. Right shoulder: Comminuted and displaced fracture of the surgical neck ofthe humerus with fracture appearing to extend into the greater tuberosityof the humeral head. There is lateral displacement of the distal fracturefragment. The glenohumeral joint appears intact. The acromioclavicularjoint is intact. There is surrounding hematoma and subcutaneousstranding. Right humerus: Displace fracture of the proximal humerus as above. Theremainder of the humerus is intact. Right elbow: No discrete fracture. No dislocation. Small anterior elbowjoint effusion. IMPRESSION: No acute cardiopulmonary findings. No acute pelvic fracture. Comminuted and displaced fracture of the surgical neck of the righthumerus as above. Small anterior elbow joint effusion without obvious fracture. If there isclinical concern for occult fracture, CT could be performed for furtherevaluation. CRITICAL RESULT: No. COMMUNICATION: Per this written report. Preliminary report signed by Kianna Rodríguez MD on 04/11/2025 9:31 PM By electronically signing this report, I, the attending physician, attestthat I have personally reviewed the images/data for the aboveexamination(s) and agree with the final edited report. Drafted by Kianna Rodríguez MD on 04/11/2025 9:26 PM Final report signed by Rickey Martínez MD on 04/11/2025 9:51 PM Trinity Darden MD IMG XR PROCEDURES Final Result * XR Elbow Right 3+ View (04/11/2025 9:12 PM EDT) Anatomical Region Laterality Modality Upper Extremities, Elbow Right Digital Radiography Impressions 04/11/2025 9:51 PM EDT No acute cardiopulmonary findings. No acute pelvic fracture. Comminuted and displaced fracture of the surgical neck of the right humerus as above. Small anterior elbow joint effusion without obvious fracture. If there is clinical concern for occult fracture, CT could be performed for further evaluation. CRITICAL RESULT: No. COMMUNICATION: Per this written report. Preliminary report signed by Kianna Rodríguez MD on 04/11/2025 9:31 PM By electronically signing this report, I, the attending physician, attest that I have personally reviewed the images/data for the above examination(s) and agree with the final edited report. Drafted by Kianna Rodríguez MD on 04/11/2025 9:26 PM Final report signed by Rickey Martínez MD on 04/11/2025 9:51 PM Narrative 04/11/2025 9:51 PM EDT CLINICAL INDICATION: TRAUMA TECHNIQUE: XR CHEST 1 VIEW, XR ELBOW RIGHT 3+ VIEWS, XR HUMERUS RIGHT 2+ VIEWS, XR SHOULDER RIGHT 2+ VIEWS, XR PELVIS 1 OR 2 VIEWS COMPARISON: None. FINDINGS: Chest: The cardiomediastinal silhouette is within normal limits. Atherosclerosis of the aortic knob. No consolidation, pleural effusion or pneumothorax. Pelvis: No acute fracture or dislocation. The femoral heads are seated within the acetabula bilaterally. The sacroiliac joints are intact. No widening of the pubic symphysis. Right shoulder: Comminuted and displaced fracture of the surgical neck of the humerus with fracture appearing to extend into the greater tuberosity of the humeral head. There is lateral displacement of the distal fracture fragment. The glenohumeral joint appears intact. The acromioclavicular joint is intact. There is surrounding hematoma and subcutaneous stranding. Right humerus: Displace fracture of the proximal humerus as above. The remainder of the humerus is intact. Right elbow: No discrete fracture. No dislocation. Small anterior elbow joint effusion. Procedure Note Rickey Martínez MD - 04/11/2025 CLINICAL INDICATION: TRAUMA TECHNIQUE: XR CHEST 1 VIEW, XR ELBOW RIGHT 3+ VIEWS, XR HUMERUS RIGHT 2+ VIEWS, XRSHOULDER RIGHT 2+ VIEWS, XR PELVIS 1 OR 2 VIEWS COMPARISON: None. FINDINGS: Chest: The cardiomediastinal silhouette is within normal limits.Atherosclerosis of the aortic knob. No consolidation, pleural effusion orpneumothorax. Pelvis: No acute fracture or dislocation. The femoral heads are seatedwithin the acetabula bilaterally. The sacroiliac joints are intact. Nowidening of the pubic symphysis. Right shoulder: Comminuted and displaced fracture of the surgical neck ofthe humerus with fracture appearing to extend into the greater tuberosityof the humeral head. There is lateral displacement of the distal fracturefragment. The glenohumeral joint appears intact. The acromioclavicularjoint is intact. There is surrounding hematoma and subcutaneousstranding. Right humerus: Displace fracture of the proximal humerus as above. Theremainder of the humerus is intact. Right elbow: No discrete fracture. No dislocation. Small anterior elbowjoint effusion. IMPRESSION: No acute cardiopulmonary findings. No acute pelvic fracture. Comminuted and displaced fracture of the surgical neck of the righthumerus as above. Small anterior elbow joint effusion without obvious fracture. If there isclinical concern for occult fracture, CT could be performed for furtherevaluation. CRITICAL RESULT: No. COMMUNICATION: Per this written report. Preliminary report signed by Kianna Rodríguez MD on 04/11/2025 9:31 PM By electronically signing this report, I, the attending physician, attestthat I have personally reviewed the images/data for the aboveexamination(s) and agree with the final edited report. Drafted by Kianna Rodríguez MD on 04/11/2025 9:26 PM Final report signed by Rickey Martínez MD on 04/11/2025 9:51 PM Trinity Darden MD IMG XR PROCEDURES Final Result * XR Humerus Right 2+ Views (04/11/2025 9:12 PM EDT) Anatomical Region Laterality Modality Upper Extremities, Humerus Right Digit al Radiography Impressions 04/11/2025 9:51 PM EDT No acute cardiopulmonary findings. No acute pelvic fracture. Comminuted and displaced fracture of the surgical neck of the right humerus as above. Small anterior elbow joint effusion without obvious fracture. If there is clinical concern for occult fracture, CT could be performed for further evaluation. CRITICAL RESULT: No. COMMUNICATION: Per this written report. Preliminary report signed by Kianna Rodríguez MD on 04/11/2025 9:31 PM By electronically signing this report, I, the attending physician, attest that I have personally reviewed the images/data for the above examination(s) and agree with the final edited report. Drafted by Kianna Rodríguez MD on 04/11/2025 9:26 PM Final report signed by Rickey Martínez MD on 04/11/2025 9:51 PM Narrative 04/11/2025 9:51 PM EDT CLINICAL INDICATION: TRAUMA TECHNIQUE: XR CHEST 1 VIEW, XR ELBOW RIGHT 3+ VIEWS, XR HUMERUS RIGHT 2+ VIEWS, XR SHOULDER RIGHT 2+ VIEWS, XR PELVIS 1 OR 2 VIEWS COMPARISON: None. FINDINGS: Chest: The cardiomediastinal silhouette is within normal limits. Atherosclerosis of the aortic knob. No consolidation, pleural effusion or pneumothorax. Pelvis: No acute fracture or dislocation. The femoral heads are seated within the acetabula bilaterally. The sacroiliac joints are intact. No widening of the pubic symphysis. Right shoulder: Comminuted and displaced fracture of the surgical neck of the humerus with fracture appearing to extend into the greater tuberosity of the humeral head. There is lateral displacement of the distal fracture fragment. The glenohumeral joint appears intact. The acromioclavicular joint is intact. There is surrounding hematoma and subcutaneous stranding. Right humerus: Displace fracture of the proximal humerus as above. The remainder of the humerus is intact. Right elbow: No discrete fracture. No dislocation. Small anterior elbow joint effusion. Procedure Note Rickey Martínez MD - 04/11/2025 CLINICAL INDICATION: TRAUMA TECHNIQUE: XR CHEST 1 VIEW, XR ELBOW RIGHT 3+ VIEWS, XR HUMERUS RIGHT 2+ VIEWS, XRSHOULDER RIGHT 2+ VIEWS, XR PELVIS 1 OR 2 VIEWS COMPARISON: None. FINDINGS: Chest: The cardiomediastinal silhouette is within normal limits.Atherosclerosis of the aortic knob. No consolidation, pleural effusion orpneumothorax. Pelvis: No acute fracture or dislocation. The femoral heads are seatedwithin the acetabula bilaterally. The sacroiliac joints are intact. Nowidening of the pubic symphysis. Right shoulder: Comminuted and displaced fracture of the surgical neck ofthe humerus with fracture appearing to extend into the greater tuberosityof the humeral head. There is lateral displacement of the distal fracturefragment. The glenohumeral joint appears intact. The acromioclavicularjoint is intact. There is surrounding hematoma and subcutaneousstranding. Right humerus: Displace fracture of the proximal humerus as above. Theremainder of the humerus is intact. Right elbow: No discrete fracture. No dislocation. Small anterior elbowjoint effusion. IMPRESSION: No acute cardiopulmonary findings. No acute pelvic fracture. Comminuted and displaced fracture of the surgical neck of the righthumerus as above. Small anterior elbow joint effusion without obvious fracture. If there isclinical concern for occult fracture, CT could be performed for furtherevaluation. CRITICAL RESULT: No. COMMUNICATION: Per this written report. Preliminary report signed by Kianna Rodríguez MD on 04/11/2025 9:31 PM By electronically signing this report, I, the attending physician, attestthat I have personally reviewed the images/data for the aboveexamination(s) and agree with the final edited report. Drafted by Kianna Rodríguez MD on 04/11/2025 9:26 PM Final report signed by Rickey Martínez MD on 04/11/2025 9:51 PM Trinity Darden MD IMG XR PROCEDURES Final Result * CT Bony Pelvis (04/11/2025 8:44 PM EDT) Anatomical Region Laterality Modality Pelvis Computed Tomogra phy Impressions 04/11/2025 9:30 PM EDT 1. No acute vascular pathology within the chest abdomen or pelvis. Extensive atherosclerotic disease as above. 2. No acute findings in the chest. 3. Partially imaged comminuted and displaced right humeral head and proximal humerus fracture. 4. No acute findings in the abdomen or pelvis. 5. Superior plate compression deformity of L1 vertebral body. Mildly displaced fractures of the right L1 and L2 transverse processes. Please see dedicated CT spine report for detailed findings of the cervical, thoracic and lumbar spine. 6. No acute fracture of the bony pelvis. CRITICAL RESULT: No. COMMUNICATION: Per this written report. Preliminary report signed by Kianna Rodríguez MD on 04/11/2025 9:20 PM year By electronically signing this report, I, the attending physician, attest that I have personally reviewed the images/data for the above examination(s) and agree with the final edited report. Drafted by Kianna Rodríguez MD on 04/11/2025 9:03 PM Final report signed by Rickey Martínez MD on 04/11/2025 9:30 PM Narrative 04/11/2025 9:30 PM EDT CLINICAL INDICATION: poly trauma TECHNIQUE: Imaging of the chest abdomen and pelvis was performed, from thoracic inlet through pubic symphysis, using spiral technique, following administration of IV contrast, Omnipaque 350, 100 mL according to the CTA thoracic aorta/chest and CTA Abdomen/Pelvis protocol. Reformatted images in the coronal, sagittal, and oblique planes were generated from the axial data set to facilitate diagnostic accuracy. In addition, 3D images were created and reviewed. The axial dataset was used to reconstruct images of the bony pelvis. Total DLP (Dose-Length Product): 3212.56 mGy.cm (accession [id number]), 3212.56 mGy.cm (accession [id number]), 3212.56 mGy.cm (accession [id number]). Please note: The reported value represents the total of one or more individual components during the CT acquisition on this date and at this time, and as such, the same value may appear in more than one CT report depending on the interpreting/reporting physicians. COMPARISON: None. FINDINGS: Chest: Aorta/Vessels: No acute thoracic aortic pathology. No thoracic aortic aneurysm or dissection. Extensive mixed atherosclerosis of the thoracic aorta and at the origins of the great vessels of the neck. 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 No periaortic hematoma. No filling defect within the pulmonary arteries to suggest pulmonary embolism. Pleural/Pericardial Space: No pneumothorax. No pleural effusions. No pericardial effusion. Lymph Nodes: No lymphadenopathy within the chest. Lungs: Mild bibasilar dependent atelectasis. Calcified left upper lobe granuloma. No focal consolidation. Mediastinum: Otherwise unremarkable. Chest wall: No chest wall hematoma or contusion. Bones: Comminuted and displaced fracture of the humeral head and proximal humeral diaphysis with surrounding hematoma/stranding, incompletely evaluated on this exam. Please see separate CT spine report for detailed findings in the cervical and thoracic spine. Abdomen: Vessels: The abdominal aorta is patent and normal in caliber with extensive mixed atherosclerosis. The celiac axis is patent. On calcified atherosclerosis at the origin of SMA with severe focal stenosis. The VELIA is patent. Atherosclerosis with moderate stenosis at the origin of the bilateral renal arteries. The bilateral common, internal and external iliac arteries are patent with scattered mixed atherosclerosis and resultant mild to moderate stenosis. Liver/Gallbladder/Biliary System: The liver demonstrates homogeneous enhancement. Normal Gallbladder. No intra- or extra-hepatic biliary ductal dilatation. Spleen: The spleen enhances homogeneously. Pancreas: The pancreas enhances homogeneously. Adrenals: The adrenals are morphologically unremarkable. Kidneys: The kidneys demonstrate symmetric nephrogram and excretion. Punctate nonobstructing bilateral renal calculi. Multiple bilateral renal cysts and too small to characterize renal lesions with the largest in the left inferior pole measuring 22 mm (series 5, image 104). No hydronephrosis. Bowel/Mesentery: The stomach and duodenum are within normal limits. The small bowel loops are not dilated. The large bowel loops are not dilated. The appendix is visualized and normal. Lymph Nodes: No lymphadenopathy within the abdomen or pelvis. Fluid Survey: No free fluid in the abdomen. No free fluid in the pelvis. Pelvis: The pelvic viscera are unremarkable. Body Wall: Normal. Bones: L1 superior endplate compression deformity with approximately 20% vertebral body height loss. Superior endplate deformity of the L4 vertebral body which could be due to a large Schmorl's node. Mildly displaced fractures of the right L1 and L2 transverse processes. Please see dedicated CT spine report for detailed findings in the thoracic and lumbar spine. Procedure Note Rickey Martínez MD - 04/11/2025 CLINICAL INDICATION: poly trauma TECHNIQUE: Imaging of the chest abdomen and pelvis was performed, from thoracic inletthrough pubic symphysis, using spiral technique, following administrationof IV contrast, Omnipaque 350, 100 mL according to the CTA thoracicaorta/chest and CTA Abdomen/Pelvis protocol. Reformatted images in thecoronal, sagittal, and oblique planes were generated from the axial dataset to facilitate diagnostic accuracy. In addition, 3D images were createdand reviewed. The axial dataset was used to reconstruct images of the bonypelvis. Total DLP (Dose-Length Product): 3212.56 mGy.cm (accession [id number]),3212.56 mGy.cm (accession [id number]), 3212.56 mGy.cm (accession [id number]).Please note: The reported value represents the total of one or moreindividual components during the CT acquisition on this date and at thistime, and as such, the same value may appear in more than one CT reportdepending on the interpreting/reporting physicians. COMPARISON: None. FINDINGS: Chest: Aorta/Vessels: No acute thoracic aortic pathology. No thoracic aorticaneurysm or dissection. Extensive mixed atherosclerosis of the thoracicaorta and at the origins of the great vessels of the neck. Four-vesselaortic arch with the left vertebral artery arising directly from theaorta. No periaortic hematoma. No filling defect within the pulmonaryarteries to suggest pulmonary embolism. Pleural/Pericardial Space: No pneumothorax. No pleural effusions. Nopericardial effusion. Lymph Nodes: No lymphadenopathy within the chest. Lungs: Mild bibasilar dependent atelectasis. Calcified left upper lobegranuloma. No focal consolidation. Mediastinum: Otherwise unremarkable. Chest wall: No chest wall hematoma or contusion. Bones: Comminuted and displaced fracture of the humeral head and proximalhumeral diaphysis with surrounding hematoma/stranding, incompletelyevaluated on this exam. Please see separate CT spine report for detailedfindings in the cervical and thoracic spine. Abdomen: Vessels: The abdominal aorta is patent and normal in caliber withextensive mixed atherosclerosis. The celiac axis is patent. On calcifiedatherosclerosis at the origin of SMA with severe focal stenosis. The IMAis patent. Atherosclerosis with moderate stenosis at the origin of thebilateral renal arteries. The bilateral common, internal and externaliliac arteries are patent with scattered mixed atherosclerosis andresultant mild to moderate stenosis. Liver/Gallbladder/Biliary System: The liver demonstrates homogeneousenhancement. Normal Gallbladder. No intra- or extra-hepatic biliaryductal dilatation. Spleen: The spleen enhances homogeneously. Pancreas: The pancreas enhances homogeneously. Adrenals: The adrenals are morphologically unremarkable. Kidneys: The kidneys demonstrate symmetric nephrogram and excretion.Punctate nonobstructing bilateral renal calculi. Multiple bilateral renalcysts and too small to characterize renal lesions with the largest in theleft inferior pole measuring 22 mm (series 5, image 104). Nohydronephrosis. Bowel/Mesentery: The stomach and duodenum are within normal limits. Thesmall bowel loops are not dilated. The large bowel loops are not dilated.The appendix is visualized and normal. Lymph Nodes: No lymphadenopathy within the abdomen or pelvis. Fluid Survey: No free fluid in the abdomen. No free fluid in the pelvis. Pelvis: The pelvic viscera are unremarkable. Body Wall: Normal. Bones: L1 superior endplate compression deformity with approximately 20%vertebral body height loss. Superior endplate deformity of the M1xhwnirrcb body which could be due to a large Schmorl's node. Mildlydisplaced fractures of the right L1 and L2 transverse processes. Pleasesee dedicated CT spine report for detailed findings in the thoracic andlumbar spine. IMPRESSION: 1. No acute vascular pathology within the chest abdomen or pelvis.Extensive atherosclerotic disease as above. 2. No acute findings in the chest. 3. Partially imaged comminuted and displaced right humeral head andproximal humerus fracture. 4. No acute findings in the abdomen or pelvis. 5. Superior plate compression deformity of L1 vertebral body. Mildlydisplaced fractures of the right L1 and L2 transverse processes. Pleasesee dedicated CT spine report for detailed findings of the cervical,thoracic and lumbar spine. 6. No acute fracture of the bony pelvis. CRITICAL RESULT: No. COMMUNICATION: Per this written report. Preliminary report signed by Kianna Rodríguez MD on 04/11/2025 9:20 PMyear By electronically signing this report, I, the attending physician, dru I have personally reviewed the images/data for the aboveexamination(s) and agree with the final edited report. Drafted by Kianna Rodríguez MD on 04/11/2025 9:03 PM Final report signed by Rickey Martínez MD on 04/11/2025 9:30 PM Trinity Darden MD IMG CT PROCEDURES Final Result * CT Angio Abdomen Pelvis (04/11/2025 8:44 PM EDT) Anatomical Region Laterality Modality Abdomen, Pelvis Computed Tomogra phy Impressions 04/11/2025 9:30 PM EDT 1. No acute vascular pathology within the chest abdomen or pelvis. Extensive atherosclerotic disease as above. 2. No acute findings in the chest. 3. Partially imaged comminuted and displaced right humeral head and proximal humerus fracture. 4. No acute findings in the abdomen or pelvis. 5. Superior plate compression deformity of L1 vertebral body. Mildly displaced fractures of the right L1 and L2 transverse processes. Please see dedicated CT spine report for detailed findings of the cervical, thoracic and lumbar spine. 6. No acute fracture of the bony pelvis. CRITICAL RESULT: No. COMMUNICATION: Per this written report. Preliminary report signed by Kianna Rodríguez MD on 04/11/2025 9:20 PM year By electronically signing this report, I, the attending physician, attest that I have personally reviewed the images/data for the above examination(s) and agree with the final edited report. Drafted by Kianna Rodríguez MD on 04/11/2025 9:03 PM Final report signed by Rickey Martínez MD on 04/11/2025 9:30 PM Narrative 04/11/2025 9:30 PM EDT CLINICAL INDICATION: poly trauma TECHNIQUE: Imaging of the chest abdomen and pelvis was performed, from thoracic inlet through pubic symphysis, using spiral technique, following administration of IV contrast, Omnipaque 350, 100 mL according to the CTA thoracic aorta/chest and CTA Abdomen/Pelvis protocol. Reformatted images in the coronal, sagittal, and oblique planes were generated from the axial data set to facilitate diagnostic accuracy. In addition, 3D images were created and reviewed. The axial dataset was used to reconstruct images of the bony pelvis. Total DLP (Dose-Length Product): 3212.56 mGy.cm (accession [id number]), 3212.56 mGy.cm (accession [id number]), 3212.56 mGy.cm (accession [id number]). Please note: The reported value represents the total of one or more individual components during the CT acquisition on this date and at this time, and as such, the same value may appear in more than one CT report depending on the interpreting/reporting physicians. COMPARISON: None. FINDINGS: Chest: Aorta/Vessels: No acute thoracic aortic pathology. No thoracic aortic aneurysm or dissection. Extensive mixed atherosclerosis of the thoracic aorta and at the origins of the great vessels of the neck. 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 No periaortic hematoma. No filling defect within the pulmonary arteries to suggest pulmonary embolism. Pleural/Pericardial Space: No pneumothorax. No pleural effusions. No pericardial effusion. Lymph Nodes: No lymphadenopathy within the chest. Lungs: Mild bibasilar dependent atelectasis. Calcified left upper lobe granuloma. No focal consolidation. Mediastinum: Otherwise unremarkable. Chest wall: No chest wall hematoma or contusion. Bones: Comminuted and displaced fracture of the humeral head and proximal humeral diaphysis with surrounding hematoma/stranding, incompletely evaluated on this exam. Please see separate CT spine report for detailed findings in the cervical and thoracic spine. Abdomen: Vessels: The abdominal aorta is patent and normal in caliber with extensive mixed atherosclerosis. The celiac axis is patent. On calcified atherosclerosis at the origin of SMA with severe focal stenosis. The VELIA is patent. Atherosclerosis with moderate stenosis at the origin of the bilateral renal arteries. The bilateral common, internal and external iliac arteries are patent with scattered mixed atherosclerosis and resultant mild to moderate stenosis. Liver/Gallbladder/Biliary System: The liver demonstrates homogeneous enhancement. Normal Gallbladder. No intra- or extra-hepatic biliary ductal dilatation. Spleen: The spleen enhances homogeneously. Pancreas: The pancreas enhances homogeneously. Adrenals: The adrenals are morphologically unremarkable. Kidneys: The kidneys demonstrate symmetric nephrogram and excretion. Punctate nonobstructing bilateral renal calculi. Multiple bilateral renal cysts and too small to characterize renal lesions with the largest in the left inferior pole measuring 22 mm (series 5, image 104). No hydronephrosis. Bowel/Mesentery: The stomach and duodenum are within normal limits. The small bowel loops are not dilated. The large bowel loops are not dilated. The appendix is visualized and normal. Lymph Nodes: No lymphadenopathy within the abdomen or pelvis. Fluid Survey: No free fluid in the abdomen. No free fluid in the pelvis. Pelvis: The pelvic viscera are unremarkable. Body Wall: Normal. Bones: L1 superior endplate compression deformity with approximately 20% vertebral body height loss. Superior endplate deformity of the L4 vertebral body which could be due to a large Schmorl's node. Mildly displaced fractures of the right L1 and L2 transverse processes. Please see dedicated CT spine report for detailed findings in the thoracic and lumbar spine. Procedure Note Rickey Martínez MD - 04/11/2025 CLINICAL INDICATION: poly trauma TECHNIQUE: Imaging of the chest abdomen and pelvis was performed, from thoracic inletthrough pubic symphysis, using spiral technique, following administrationof IV contrast, Omnipaque 350, 100 mL according to the CTA thoracicaorta/chest and CTA Abdomen/Pelvis protocol. Reformatted images in thecoronal, sagittal, and oblique planes were generated from the axial dataset to facilitate diagnostic accuracy. In addition, 3D images were createdand reviewed. The axial dataset was used to reconstruct images of the bonypelvis. Total DLP (Dose-Length Product): 3212.56 mGy.cm (accession [id number]),3212.56 mGy.cm (accession [id number]), 3212.56 mGy.cm (accession [id number]).Please note: The reported value represents the total of one or moreindividual components during the CT acquisition on this date and at thistime, and as such, the same value may appear in more than one CT reportdepending on the interpreting/reporting physicians. COMPARISON: None. FINDINGS: Chest: Aorta/Vessels: No acute thoracic aortic pathology. No thoracic aorticaneurysm or dissection. Extensive mixed atherosclerosis of the thoracicaorta and at the origins of the great vessels of the neck. Four-vesselaortic arch with the left vertebral artery arising directly from theaorta. No periaortic hematoma. No filling defect within the pulmonaryarteries to suggest pulmonary embolism. Pleural/Pericardial Space: No pneumothorax. No pleural effusions. Nopericardial effusion. Lymph Nodes: No lymphadenopathy within the chest. Lungs: Mild bibasilar dependent atelectasis. Calcified left upper lobegranuloma. No focal consolidation. Mediastinum: Otherwise unremarkable. Chest wall: No chest wall hematoma or contusion. Bones: Comminuted and displaced fracture of the humeral head and proximalhumeral diaphysis with surrounding hematoma/stranding, incompletelyevaluated on this exam. Please see separate CT spine report for detailedfindings in the cervical and thoracic spine. Abdomen: Vessels: The abdominal aorta is patent and normal in caliber withextensive mixed atherosclerosis. The celiac axis is patent. On calcifiedatherosclerosis at the origin of SMA with severe focal stenosis. The IMAis patent. Atherosclerosis with moderate stenosis at the origin of thebilateral renal arteries. The bilateral common, internal and externaliliac arteries are patent with scattered mixed atherosclerosis andresultant mild to moderate stenosis. Liver/Gallbladder/Biliary System: The liver demonstrates homogeneousenhancement. Normal Gallbladder. No intra- or extra-hepatic biliaryductal dilatation. Spleen: The spleen enhances homogeneously. Pancreas: The pancreas enhances homogeneously. Adrenals: The adrenals are morphologically unremarkable. Kidneys: The kidneys demonstrate symmetric nephrogram and excretion.Punctate nonobstructing bilateral renal calculi. Multiple bilateral renalcysts and too small to characterize renal lesions with the largest in theleft inferior pole measuring 22 mm (series 5, image 104). Nohydronephrosis. Bowel/Mesentery: The stomach and duodenum are within normal limits. Thesmall bowel loops are not dilated. The large bowel loops are not dilated.The appendix is visualized and normal. Lymph Nodes: No lymphadenopathy within the abdomen or pelvis. Fluid Survey: No free fluid in the abdomen. No free fluid in the pelvis. Pelvis: The pelvic viscera are unremarkable. Body Wall: Normal. Bones: L1 superior endplate compression deformity with approximately 20%vertebral body height loss. Superior endplate deformity of the A4hepsserod body which could be due to a large Schmorl's node. Mildlydisplaced fractures of the right L1 and L2 transverse processes. Pleasesee dedicated CT spine report for detailed findings in the thoracic andlumbar spine. IMPRESSION: 1. No acute vascular pathology within the chest abdomen or pelvis.Extensive atherosclerotic disease as above. 2. No acute findings in the chest. 3. Partially imaged comminuted and displaced right humeral head andproximal humerus fracture. 4. No acute findings in the abdomen or pelvis. 5. Superior plate compression deformity of L1 vertebral body. Mildlydisplaced fractures of the right L1 and L2 transverse processes. Pleasesee dedicated CT spine report for detailed findings of the cervical,thoracic and lumbar spine. 6. No acute fracture of the bony pelvis. CRITICAL RESULT: No. COMMUNICATION: Per this written report. Preliminary report signed by Kianna Rodríguez MD on 04/11/2025 9:20 PMyear By electronically signing this report, I, the attending physician, attestthat I have personally reviewed the images/data for the aboveexamination(s) and agree with the final edited report. Drafted by Kianna Rodríguez MD on 04/11/2025 9:03 PM Final report signed by Rickey Martínez MD on 04/11/2025 9:30 PM us Trinity Darden MD IMG CT PROCEDURES Final Result * CT Lumbar Spine wo IV Contrast (04/11/2025 8:44 PM EDT) Anatomical Region Laterality Modality Spine, L-spine Computed Tomogra phy Impressions 04/11/2025 9:23 PM EDT 1. Degenerative changes of the cervical spine without evidence of acute osseous injury, or acute traumatic malalignment. 2. Degenerative changes of the thoracic spine without evidence of acute osseous injury, or acute traumatic malalignment. 3. Superior endplate compression deformity of the L1 vertebral body, with up to 25% central height loss, and mild anterior wedging. Associated fracture of the right transverse process. Posterior elements otherwise intact, no attenuation of spinal canal by retropulsed bone. Displaced fracture tip of right transverse process at L2. Degenerative changes of lumbar spine without other evidence of acute osseous injury, or acute traumatic malalignment. CRITICAL RESULT: No. COMMUNICATION: Per this written report. Drafted by Prasad Beebe MD on 04/11/2025 9:15 PM Final report signed by Prasad Beebe MD on 04/11/2025 9:23 PM Narrative 04/11/2025 9:23 PM EDT CLINICAL INDICATION: poly trauma TECHNIQUE: Imaging of the entire cervical spine (to include the cervicothoracic junction) was performed, using spiral technique, without contrast administration. Reformatted images in the coronal and sagittal planes were generated from the axial data set to facilitate diagnostic accuracy and/or surgical planning. Contiguous axial CT images of the entire thoracic spine were reformatted from a CT of the chest/aorta. Reconstructed images in the coronal and sagittal planes were generated from the axial data set to facilitate diagnostic accuracy and/or surgical planning. Contiguous axial CT images of the entire lumbar spine were reformatted from a CT of the abdomen and pelvis. Reconstructed images in the coronal and sagittal planes were generated from the axial data set to facilitate diagnostic accuracy and/or surgical planning. Total DLP (Dose-Length Product): 3212.56 mGy.cm (accession [id number]), 3212.56 mGy.cm (accession [id number]), 3212.56 mGy.cm (accession [id number]). Please note: The reported value represents the total of one or more individual components during the CT acquisition on this date and at this time, and as such, the same value may appear in more than one CT report depending on the interpreting/reporting physicians. COMPARISON: None. FINDINGS: Cervical Spine: Vertebrae: No acute vertebral body compression. Multilevel small endplate osteophytes, and no further joint hypertrophy. Multilevel facet arthropathy, with ankylosis of the facets on the left at C2/3. Intact dens. Intact posterior skull base. No acute cervical spine fracture identified. Alignment: No acute traumatic subluxation. Slight degenerative anterolisthesis of C3 on 4, and C4 on 5. Paraspinal Soft Tissues: No paraspinal hematoma. Lung Apices: No pneumothorax at the lung apices. Thoracic Spine: Vertebrae: No acute vertebral body compression. Facet arthropathy of the thoracic spine, with ankylosis of several of the upper thoracic spine facet. Posterior elements and the adjacent posterior medial ribs appear intact. Alignment: No traumatic subluxation. Paraspinal Soft Tissues: No paraspinal hematoma. Lumbar Spine: Vertebrae: Superior endplate compression deformity of the L1 vertebral body, with up to 25% central height loss, and mild anterior wedging. Associated fracture of the right transverse process. Posterior elements otherwise intact, no attenuation of spinal canal by retropulsed bone. Chronic appearing superior endplate compression with prominent Schmorl's node at L4. Multilevel endplate osteophytes. Displaced fracture of the tip of the L2 right transverse process. Other posterior elements appear intact. Alignment: No acute traumatic subluxation. Slight degenerative retrolisthesis of L2 on 3. Paraspinal Soft Tissues: No paraspinal hematoma. Procedure Note Prasad Beebe MD - 04/11/2025 CLINICAL INDICATION: poly trauma TECHNIQUE: Imaging of the entire cervical spine (to include the cervicothoracicjunction) was performed, using spiral technique, without contrastadministration. Reformatted images in the coronal and sagittal planes weregenerated from the axial data set to facilitate diagnostic accuracy and/orsurgical planning. Contiguous axial CT images of the entire thoracic spine were reformattedfrom a CT of the chest/aorta. Reconstructed images in the coronal andsagittal planes were generated from the axial data set to facilitatediagnostic accuracy and/or surgical planning. Contiguous axial CT images of the entire lumbar spine were reformattedfrom a CT of the abdomen and pelvis. Reconstructed images in the coronaland sagittal planes were generated from the axial data set to facilitatediagnostic accuracy and/or surgical planning. Total DLP (Dose-Length Product): 3212.56 mGy.cm (accession [id number]),3212.56 mGy.cm (accession [id number]), 3212.56 mGy.cm (accession [id number]).Please note: The reported value represents the total of one or moreindividual components during the CT acquisition on this date and at thistime, and as such, the same value may appear in more than one CT reportdepending on the interpreting/reporting physicians. COMPARISON: None. FINDINGS: Cervical Spine: Vertebrae: No acute vertebral body compression. Multilevel small endplateosteophytes, and no further joint hypertrophy. Multilevel facetarthropathy, with ankylosis of the facets on the left at C2/3. Intactdens. Intact posterior skull base. No acute cervical spine fractureidentified. Alignment: No acute traumatic subluxation. Slight degenerativeanterolisthesis of C3 on 4, and C4 on 5. Paraspinal Soft Tissues: No paraspinal hematoma. Lung Apices: No pneumothorax at the lung apices. Thoracic Spine: Vertebrae: No acute vertebral body compression. Facet arthropathy of thethoracic spine, with ankylosis of several of the upper thoracic spinefacet. Posterior elements and the adjacent posterior medial ribs appearintact. Alignment: No traumatic subluxation. Paraspinal Soft Tissues: No paraspinal hematoma. Lumbar Spine: Vertebrae: Superior endplate compression deformity of the L1 vertebralbody, with up to 25% central height loss, and mild anterior wedging.Associated fracture of the right transverse process. Posterior elementsotherwise intact, no attenuation of spinal canal by retropulsed bone. Chronic appearing superior endplate compression with prominent Schmorl'snode at L4. Multilevel endplate osteophytes. Displaced fracture of the tipof the L2 right transverse process. Other posterior elements appearintact. Alignment: No acute traumatic subluxation. Slight degenerativeretrolisthesis of L2 on 3. Paraspinal Soft Tissues: No paraspinal hematoma. IMPRESSION: 1. Degenerative changes of the cervical spine without evidence of acuteosseous injury, or acute traumatic malalignment. 2. Degenerative changes of the thoracic spine without evidence of acuteosseous injury, or acute traumatic malalignment. 3. Superior endplate compression deformity of the L1 vertebral body, withup to 25% central height loss, and mild anterior wedging. Associatedfracture of the right transverse process. Posterior elements otherwiseintact, no attenuation of spinal canal by retropulsed bone. Displacedfracture tip of right transverse process at L2. Degenerative changes oflumbar spine without other evidence of acute osseous injury, or acutetraumatic malalignment. CRITICAL RESULT: No. COMMUNICATION: Per this written report. Drafted by Prasad Beebe MD on 04/11/2025 9:15 PM Final report signed by Prasad Beebe MD on 04/11/2025 9:23 PM Trinity Darden MD IMG CT PROCEDURES Final Result * CT Thoracic Spine wo IV Contrast (04/11/2025 8:44 PM EDT) Anatomical Region Laterality Modality Spine, T-spine Computed Tomogra phy Impressions 04/11/2025 9:23 PM EDT 1. Degenerative changes of the cervical spine without evidence of acute osseous injury, or acute traumatic malalignment. 2. Degenerative changes of the thoracic spine without evidence of acute osseous injury, or acute traumatic malalignment. 3. Superior endplate compression deformity of the L1 vertebral body, with up to 25% central height loss, and mild anterior wedging. Associated fracture of the right transverse process. Posterior elements otherwise intact, no attenuation of spinal canal by retropulsed bone. Displaced fracture tip of right transverse process at L2. Degenerative changes of lumbar spine without other evidence of acute osseous injury, or acute traumatic malalignment. CRITICAL RESULT: No. COMMUNICATION: Per this written report. Drafted by Prasad Beebe MD on 04/11/2025 9:15 PM Final report signed by Prasad Beebe MD on 04/11/2025 9:23 PM Narrative 04/11/2025 9:23 PM EDT CLINICAL INDICATION: poly trauma TECHNIQUE: Imaging of the entire cervical spine (to include the cervicothoracic junction) was performed, using spiral technique, without contrast administration. Reformatted images in the coronal and sagittal planes were generated from the axial data set to facilitate diagnostic accuracy and/or surgical planning. Contiguous axial CT images of the entire thoracic spine were reformatted from a CT of the chest/aorta. Reconstructed images in the coronal and sagittal planes were generated from the axial data set to facilitate diagnostic accuracy and/or surgical planning. Contiguous axial CT images of the entire lumbar spine were reformatted from a CT of the abdomen and pelvis. Reconstructed images in the coronal and sagittal planes were generated from the axial data set to facilitate diagnostic accuracy and/or surgical planning. Total DLP (Dose-Length Product): 3212.56 mGy.cm (accession [id number]), 3212.56 mGy.cm (accession [id number]), 3212.56 mGy.cm (accession [id number]). Please note: The reported value represents the total of one or more individual components during the CT acquisition on this date and at this time, and as such, the same value may appear in more than one CT report depending on the interpreting/reporting physicians. COMPARISON: None. FINDINGS: Cervical Spine: Vertebrae: No acute vertebral body compression. Multilevel small endplate osteophytes, and no further joint hypertrophy. Multilevel facet arthropathy, with ankylosis of the facets on the left at C2/3. Intact dens. Intact posterior skull base. No acute cervical spine fracture identified. Alignment: No acute traumatic subluxation. Slight degenerative anterolisthesis of C3 on 4, and C4 on 5. Paraspinal Soft Tissues: No paraspinal hematoma. Lung Apices: No pneumothorax at the lung apices. Thoracic Spine: Vertebrae: No acute vertebral body compression. Facet arthropathy of the thoracic spine, with ankylosis of several of the upper thoracic spine facet. Posterior elements and the adjacent posterior medial ribs appear intact. Alignment: No traumatic subluxation. Paraspinal Soft Tissues: No paraspinal hematoma. Lumbar Spine: Vertebrae: Superior endplate compression deformity of the L1 vertebral body, with up to 25% central height loss, and mild anterior wedging. Associated fracture of the right transverse process. Posterior elements otherwise intact, no attenuation of spinal canal by retropulsed bone. Chronic appearing superior endplate compression with prominent Schmorl's node at L4. Multilevel endplate osteophytes. Displaced fracture of the tip of the L2 right transverse process. Other posterior elements appear intact. Alignment: No acute traumatic subluxation. Slight degenerative retrolisthesis of L2 on 3. Paraspinal Soft Tissues: No paraspinal hematoma. Procedure Note Prasad Beebe MD - 04/11/2025 CLINICAL INDICATION: poly trauma TECHNIQUE: Imaging of the entire cervical spine (to include the cervicothoracicjunction) was performed, using spiral technique, without contrastadministration. Reformatted images in the coronal and sagittal planes weregenerated from the axial data set to facilitate diagnostic accuracy and/orsurgical planning. Contiguous axial CT images of the entire thoracic spine were reformattedfrom a CT of the chest/aorta. Reconstructed images in the coronal andsagittal planes were generated from the axial data set to facilitatediagnostic accuracy and/or surgical planning. Contiguous axial CT images of the entire lumbar spine were reformattedfrom a CT of the abdomen and pelvis. Reconstructed images in the coronaland sagittal planes were generated from the axial data set to facilitatediagnostic accuracy and/or surgical planning. Total DLP (Dose-Length Product): 3212.56 mGy.cm (accession [id number]),3212.56 mGy.cm (accession [id number]), 3212.56 mGy.cm (accession [id number]).Please note: The reported value represents the total of one or moreindividual components during the CT acquisition on this date and at thistime, and as such, the same value may appear in more than one CT reportdepending on the interpreting/reporting physicians. COMPARISON: None. FINDINGS: Cervical Spine: Vertebrae: No acute vertebral body compression. Multilevel small endplateosteophytes, and no further joint hypertrophy. Multilevel facetarthropathy, with ankylosis of the facets on the left at C2/3. Intactdens. Intact posterior skull base. No acute cervical spine fractureidentified. Alignment: No acute traumatic subluxation. Slight degenerativeanterolisthesis of C3 on 4, and C4 on 5. Paraspinal Soft Tissues: No paraspinal hematoma. Lung Apices: No pneumothorax at the lung apices. Thoracic Spine: Vertebrae: No acute vertebral body compression. Facet arthropathy of thethoracic spine, with ankylosis of several of the upper thoracic spinefacet. Posterior elements and the adjacent posterior medial ribs appearintact. Alignment: No traumatic subluxation. Paraspinal Soft Tissues: No paraspinal hematoma. Lumbar Spine: Vertebrae: Superior endplate compression deformity of the L1 vertebralbody, with up to 25% central height loss, and mild anterior wedging.Associated fracture of the right transverse process. Posterior elementsotherwise intact, no attenuation of spinal canal by retropulsed bone. Chronic appearing superior endplate compression with prominent Schmorl'snode at L4. Multilevel endplate osteophytes. Displaced fracture of the tipof the L2 right transverse process. Other posterior elements appearintact. Alignment: No acute traumatic subluxation. Slight degenerativeretrolisthesis of L2 on 3. Paraspinal Soft Tissues: No paraspinal hematoma. IMPRESSION: 1. Degenerative changes of the cervical spine without evidence of acuteosseous injury, or acute traumatic malalignment. 2. Degenerative changes of the thoracic spine without evidence of acuteosseous injury, or acute traumatic malalignment. 3. Superior endplate compression deformity of the L1 vertebral body, withup to 25% central height loss, and mild anterior wedging. Associatedfracture of the right transverse process. Posterior elements otherwiseintact, no attenuation of spinal canal by retropulsed bone. Displacedfracture tip of right transverse process at L2. Degenerative changes oflumbar spine without other evidence of acute osseous injury, or acutetraumatic malalignment. CRITICAL RESULT: No. COMMUNICATION: Per this written report. Drafted by Prasad Beebe MD on 04/11/2025 9:15 PM Final report signed by Prasad Beebe MD on 04/11/2025 9:23 PM Trinity Darden MD IMG CT PROCEDURES Final Result * CT Cervical Spine wo IV Contrast (04/11/2025 8:44 PM EDT) Anatomical Region Laterality Modality Spine, C-spine Computed Tomogra phy Impressions 04/11/2025 9:23 PM EDT 1. Degenerative changes of the cervical spine without evidence of acute osseous injury, or acute traumatic malalignment. 2. Degenerative changes of the thoracic spine without evidence of acute osseous injury, or acute traumatic malalignment. 3. Superior endplate compression deformity of the L1 vertebral body, with up to 25% central height loss, and mild anterior wedging. Associated fracture of the right transverse process. Posterior elements otherwise intact, no attenuation of spinal canal by retropulsed bone. Displaced fracture tip of right transverse process at L2. Degenerative changes of lumbar spine without other evidence of acute osseous injury, or acute traumatic malalignment. CRITICAL RESULT: No. COMMUNICATION: Per this written report. Drafted by Prasad Beebe MD on 04/11/2025 9:15 PM Final report signed by Prasad Beebe MD on 04/11/2025 9:23 PM Narrative 04/11/2025 9:23 PM EDT CLINICAL INDICATION: poly trauma TECHNIQUE: Imaging of the entire cervical spine (to include the cervicothoracic junction) was performed, using spiral technique, without contrast administration. Reformatted images in the coronal and sagittal planes were generated from the axial data set to facilitate diagnostic accuracy and/or surgical planning. Contiguous axial CT images of the entire thoracic spine were reformatted from a CT of the chest/aorta. Reconstructed images in the coronal and sagittal planes were generated from the axial data set to facilitate diagnostic accuracy and/or surgical planning. Contiguous axial CT images of the entire lumbar spine were reformatted from a CT of the abdomen and pelvis. Reconstructed images in the coronal and sagittal planes were generated from the axial data set to facilitate diagnostic accuracy and/or surgical planning. Total DLP (Dose-Length Product): 3212.56 mGy.cm (accession [id number]), 3212.56 mGy.cm (accession [id number]), 3212.56 mGy.cm (accession [id number]). Please note: The reported value represents the total of one or more individual components during the CT acquisition on this date and at this time, and as such, the same value may appear in more than one CT report depending on the interpreting/reporting physicians. COMPARISON: None. FINDINGS: Cervical Spine: Vertebrae: No acute vertebral body compression. Multilevel small endplate osteophytes, and no further joint hypertrophy. Multilevel facet arthropathy, with ankylosis of the facets on the left at C2/3. Intact dens. Intact posterior skull base. No acute cervical spine fracture identified. Alignment: No acute traumatic subluxation. Slight degenerative anterolisthesis of C3 on 4, and C4 on 5. Paraspinal Soft Tissues: No paraspinal hematoma. Lung Apices: No pneumothorax at the lung apices. Thoracic Spine: Vertebrae: No acute vertebral body compression. Facet arthropathy of the thoracic spine, with ankylosis of several of the upper thoracic spine facet. Posterior elements and the adjacent posterior medial ribs appear intact. Alignment: No traumatic subluxation. Paraspinal Soft Tissues: No paraspinal hematoma. Lumbar Spine: Vertebrae: Superior endplate compression deformity of the L1 vertebral body, with up to 25% central height loss, and mild anterior wedging. Associated fracture of the right transverse process. Posterior elements otherwise intact, no attenuation of spinal canal by retropulsed bone. Chronic appearing superior endplate compression with prominent Schmorl's node at L4. Multilevel endplate osteophytes. Displaced fracture of the tip of the L2 right transverse process. Other posterior elements appear intact. Alignment: No acute traumatic subluxation. Slight degenerative retrolisthesis of L2 on 3. Paraspinal Soft Tissues: No paraspinal hematoma. Procedure Note Prasad Beebe MD - 04/11/2025 CLINICAL INDICATION: poly trauma TECHNIQUE: Imaging of the entire cervical spine (to include the cervicothoracicjunction) was performed, using spiral technique, without contrastadministration. Reformatted images in the coronal and sagittal planes weregenerated from the axial data set to facilitate diagnostic accuracy and/orsurgical planning. Contiguous axial CT images of the entire thoracic spine were reformattedfrom a CT of the chest/aorta. Reconstructed images in the coronal andsagittal planes were generated from the axial data set to facilitatediagnostic accuracy and/or surgical planning. Contiguous axial CT images of the entire lumbar spine were reformattedfrom a CT of the abdomen and pelvis. Reconstructed images in the coronaland sagittal planes were generated from the axial data set to facilitatediagnostic accuracy and/or surgical planning. Total DLP (Dose-Length Product): 3212.56 mGy.cm (accession [id number]),3212.56 mGy.cm (accession [id number]), 3212.56 mGy.cm (accession [id number]).Please note: The reported value represents the total of one or moreindividual components during the CT acquisition on this date and at thistime, and as such, the same value may appear in more than one CT reportdepending on the interpreting/reporting physicians. COMPARISON: None. FINDINGS: Cervical Spine: Vertebrae: No acute vertebral body compression. Multilevel small endplateosteophytes, and no further joint hypertrophy. Multilevel facetarthropathy, with ankylosis of the facets on the left at C2/3. Intactdens. Intact posterior skull base. No acute cervical spine fractureidentified. Alignment: No acute traumatic subluxation. Slight degenerativeanterolisthesis of C3 on 4, and C4 on 5. Paraspinal Soft Tissues: No paraspinal hematoma. Lung Apices: No pneumothorax at the lung apices. Thoracic Spine: Vertebrae: No acute vertebral body compression. Facet arthropathy of thethoracic spine, with ankylosis of several of the upper thoracic spinefacet. Posterior elements and the adjacent posterior medial ribs appearintact. Alignment: No traumatic subluxation. Paraspinal Soft Tissues: No paraspinal hematoma. Lumbar Spine: Vertebrae: Superior endplate compression deformity of the L1 vertebralbody, with up to 25% central height loss, and mild anterior wedging.Associated fracture of the right transverse process. Posterior elementsotherwise intact, no attenuation of spinal canal by retropulsed bone. Chronic appearing superior endplate compression with prominent Schmorl'snode at L4. Multilevel endplate osteophytes. Displaced fracture of the tipof the L2 right transverse process. Other posterior elements appearintact. Alignment: No acute traumatic subluxation. Slight degenerativeretrolisthesis of L2 on 3. Paraspinal Soft Tissues: No paraspinal hematoma. IMPRESSION: 1. Degenerative changes of the cervical spine without evidence of acuteosseous injury, or acute traumatic malalignment. 2. Degenerative changes of the thoracic spine without evidence of acuteosseous injury, or acute traumatic malalignment. 3. Superior endplate compression deformity of the L1 vertebral body, withup to 25% central height loss, and mild anterior wedging. Associatedfracture of the right transverse process. Posterior elements otherwiseintact, no attenuation of spinal canal by retropulsed bone. Displacedfracture tip of right transverse process at L2. Degenerative changes oflumbar spine without other evidence of acute osseous injury, or acutetraumatic malalignment. CRITICAL RESULT: No. COMMUNICATION: Per this written report. Drafted by Prasad Beebe MD on 04/11/2025 9:15 PM Final report signed by Prasad Beebe MD on 04/11/2025 9:23 PM Trinity Darden MD IMG CT PROCEDURES Final Result * CT Angio Chest (04/11/2025 8:44 PM EDT) Anatomical Region Laterality Modality Chest Computed Tomogra phy Impressions 04/11/2025 9:30 PM EDT 1. No acute vascular pathology within the chest abdomen or pelvis. Extensive atherosclerotic disease as above. 2. No acute findings in the chest. 3. Partially imaged comminuted and displaced right humeral head and proximal humerus fracture. 4. No acute findings in the abdomen or pelvis. 5. Superior plate compression deformity of L1 vertebral body. Mildly displaced fractures of the right L1 and L2 transverse processes. Please see dedicated CT spine report for detailed findings of the cervical, thoracic and lumbar spine. 6. No acute fracture of the bony pelvis. CRITICAL RESULT: No. COMMUNICATION: Per this written report. Preliminary report signed by Kianna Rodríguez MD on 04/11/2025 9:20 PM year By electronically signing this report, I, the attending physician, attest that I have personally reviewed the images/data for the above examination(s) and agree with the final edited report. Drafted by Kianna Rodríguez MD on 04/11/2025 9:03 PM Final report signed by Rickey Martínez MD on 04/11/2025 9:30 PM Narrative 04/11/2025 9:30 PM EDT CLINICAL INDICATION: poly trauma TECHNIQUE: Imaging of the chest abdomen and pelvis was performed, from thoracic inlet through pubic symphysis, using spiral technique, following administration of IV contrast, Omnipaque 350, 100 mL according to the CTA thoracic aorta/chest and CTA Abdomen/Pelvis protocol. Reformatted images in the coronal, sagittal, and oblique planes were generated from the axial data set to facilitate diagnostic accuracy. In addition, 3D images were created and reviewed. The axial dataset was used to reconstruct images of the bony pelvis. Total DLP (Dose-Length Product): 3212.56 mGy.cm (accession [id number]), 3212.56 mGy.cm (accession [id number]), 3212.56 mGy.cm (accession [id number]). Please note: The reported value represents the total of one or more individual components during the CT acquisition on this date and at this time, and as such, the same value may appear in more than one CT report depending on the interpreting/reporting physicians. COMPARISON: None. FINDINGS: Chest: Aorta/Vessels: No acute thoracic aortic pathology. No thoracic aortic aneurysm or dissection. Extensive mixed atherosclerosis of the thoracic aorta and at the origins of the great vessels of the neck. 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 No periaortic hematoma. No filling defect within the pulmonary arteries to suggest pulmonary embolism. Pleural/Pericardial Space: No pneumothorax. No pleural effusions. No pericardial effusion. Lymph Nodes: No lymphadenopathy within the chest. Lungs: Mild bibasilar dependent atelectasis. Calcified left upper lobe granuloma. No focal consolidation. Mediastinum: Otherwise unremarkable. Chest wall: No chest wall hematoma or contusion. Bones: Comminuted and displaced fracture of the humeral head and proximal humeral diaphysis with surrounding hematoma/stranding, incompletely evaluated on this exam. Please see separate CT spine report for detailed findings in the cervical and thoracic spine. Abdomen: Vessels: The abdominal aorta is patent and normal in caliber with extensive mixed atherosclerosis. The celiac axis is patent. On calcified atherosclerosis at the origin of SMA with severe focal stenosis. The VELIA is patent. Atherosclerosis with moderate stenosis at the origin of the bilateral renal arteries. The bilateral common, internal and external iliac arteries are patent with scattered mixed atherosclerosis and resultant mild to moderate stenosis. Liver/Gallbladder/Biliary System: The liver demonstrates homogeneous enhancement. Normal Gallbladder. No intra- or extra-hepatic biliary ductal dilatation. Spleen: The spleen enhances homogeneously. Pancreas: The pancreas enhances homogeneously. Adrenals: The adrenals are morphologically unremarkable. Kidneys: The kidneys demonstrate symmetric nephrogram and excretion. Punctate nonobstructing bilateral renal calculi. Multiple bilateral renal cysts and too small to characterize renal lesions with the largest in the left inferior pole measuring 22 mm (series 5, image 104). No hydronephrosis. Bowel/Mesentery: The stomach and duodenum are within normal limits. The small bowel loops are not dilated. The large bowel loops are not dilated. The appendix is visualized and normal. Lymph Nodes: No lymphadenopathy within the abdomen or pelvis. Fluid Survey: No free fluid in the abdomen. No free fluid in the pelvis. Pelvis: The pelvic viscera are unremarkable. Body Wall: Normal. Bones: L1 superior endplate compression deformity with approximately 20% vertebral body height loss. Superior endplate deformity of the L4 vertebral body which could be due to a large Schmorl's node. Mildly displaced fractures of the right L1 and L2 transverse processes. Please see dedicated CT spine report for detailed findings in the thoracic and lumbar spine. Procedure Note Rickey Martínez MD - 04/11/2025 CLINICAL INDICATION: poly trauma TECHNIQUE: Imaging of the chest abdomen and pelvis was performed, from thoracic inletthrough pubic symphysis, using spiral technique, following administrationof IV contrast, Omnipaque 350, 100 mL according to the CTA thoracicaorta/chest and CTA Abdomen/Pelvis protocol. Reformatted images in thecoronal, sagittal, and oblique planes were generated from the axial dataset to facilitate diagnostic accuracy. In addition, 3D images were createdand reviewed. The axial dataset was used to reconstruct images of the bonypelvis. Total DLP (Dose-Length Product): 3212.56 mGy.cm (accession [id number]),3212.56 mGy.cm (accession [id number]), 3212.56 mGy.cm (accession [id number]).Please note: The reported value represents the total of one or moreindividual components during the CT acquisition on this date and at thistime, and as such, the same value may appear in more than one CT reportdepending on the interpreting/reporting physicians. COMPARISON: None. FINDINGS: Chest: Aorta/Vessels: No acute thoracic aortic pathology. No thoracic aorticaneurysm or dissection. Extensive mixed atherosclerosis of the thoracicaorta and at the origins of the great vessels of the neck. Four-vesselaortic arch with the left vertebral artery arising directly from theaorta. No periaortic hematoma. No filling defect within the pulmonaryarteries to suggest pulmonary embolism. Pleural/Pericardial Space: No pneumothorax. No pleural effusions. Nopericardial effusion. Lymph Nodes: No lymphadenopathy within the chest. Lungs: Mild bibasilar dependent atelectasis. Calcified left upper lobegranuloma. No focal consolidation. Mediastinum: Otherwise unremarkable. Chest wall: No chest wall hematoma or contusion. Bones: Comminuted and displaced fracture of the humeral head and proximalhumeral diaphysis with surrounding hematoma/stranding, incompletelyevaluated on this exam. Please see separate CT spine report for detailedfindings in the cervical and thoracic spine. Abdomen: Vessels: The abdominal aorta is patent and normal in caliber withextensive mixed atherosclerosis. The celiac axis is patent. On calcifiedatherosclerosis at the origin of SMA with severe focal stenosis. The IMAis patent. Atherosclerosis with moderate stenosis at the origin of thebilateral renal arteries. The bilateral common, internal and externaliliac arteries are patent with scattered mixed atherosclerosis andresultant mild to moderate stenosis. Liver/Gallbladder/Biliary System: The liver demonstrates homogeneousenhancement. Normal Gallbladder. No intra- or extra-hepatic biliaryductal dilatation. Spleen: The spleen enhances homogeneously. Pancreas: The pancreas enhances homogeneously. Adrenals: The adrenals are morphologically unremarkable. Kidneys: The kidneys demonstrate symmetric nephrogram and excretion.Punctate nonobstructing bilateral renal calculi. Multiple bilateral renalcysts and too small to characterize renal lesions with the largest in theleft inferior pole measuring 22 mm (series 5, image 104). Nohydronephrosis. Bowel/Mesentery: The stomach and duodenum are within normal limits. Thesmall bowel loops are not dilated. The large bowel loops are not dilated.The appendix is visualized and normal. Lymph Nodes: No lymphadenopathy within the abdomen or pelvis. Fluid Survey: No free fluid in the abdomen. No free fluid in the pelvis. Pelvis: The pelvic viscera are unremarkable. Body Wall: Normal. Bones: L1 superior endplate compression deformity with approximately 20%vertebral body height loss. Superior endplate deformity of the S1jbnrkjvrc body which could be due to a large Schmorl's node. Mildlydisplaced fractures of the right L1 and L2 transverse processes. Pleasesee dedicated CT spine report for detailed findings in the thoracic andlumbar spine. IMPRESSION: 1. No acute vascular pathology within the chest abdomen or pelvis.Extensive atherosclerotic disease as above. 2. No acute findings in the chest. 3. Partially imaged comminuted and displaced right humeral head andproximal humerus fracture. 4. No acute findings in the abdomen or pelvis. 5. Superior plate compression deformity of L1 vertebral body. Mildlydisplaced fractures of the right L1 and L2 transverse processes. Pleasesee dedicated CT spine report for detailed findings of the cervical,thoracic and lumbar spine. 6. No acute fracture of the bony pelvis. CRITICAL RESULT: No. COMMUNICATION: Per this written report. Preliminary report signed by Kianna Rodríguez MD on 04/11/2025 9:20 PMyear By electronically signing this report, I, the attending physician, attestthat I have personally reviewed the images/data for the aboveexamination(s) and agree with the final edited report. Drafted by Kianna Rodríguez MD on 04/11/2025 9:03 PM Final report signed by Rickey Martínez MD on 04/11/2025 9:30 PM Trinity Darden MD IMG CT PROCEDURES Final Result * CT Angio Neck (04/11/2025 8:44 PM EDT) Anatomical Region Laterality Modality Carotid Artery Computed Tomogra phy Impressions 04/11/2025 9:15 PM EDT 1. No acute intracranial abnormality. 2. CTA of the head and neck without evidence of acute extracranial or intracranial arterial injury. 3. Moderate short segment stenosis of the proximal left subclavian artery, with ulcerated plaque, versus small dissection flap. CRITICAL RESULT: No. COMMUNICATION: Per this written report. Drafted by Prasad Beebe MD on 04/11/2025 9:04 PM Final report signed by Prasad Beebe MD on 04/11/2025 9:15 PM Narrative 04/11/2025 9:15 PM EDT CLINICAL INDICATION: poly trauma TECHNIQUE: Routine contiguous axial CT images of the head were obtained without contrast administration. Contrast-enhanced CT angiogram of the head and neck was obtained after administration of intravenous iodinated contrast using 0.6 mm axial slice thickness with multiplanar reformations and maximum intensity projections. In addition, 3D images were created and reviewed. AI Utilization: None Total DLP (Dose-Length Product): 3212.56 mGy.cm (accession [id number]), 3212.56 mGy.cm (accession [id number]), 3212.56 mGy.cm (accession [id number]). Please note: The reported value represents the total of one or more individual components during the CT acquisition on this date and at this time, and as such, the same value may appear in more than one CT report depending on the interpreting/reporting physicians. COMPARISON: None. FINDINGS: CT Head without: CSF spaces are clear. No midline shift, or attenuation of the basilar cisterns. Chronic appearing cerebral and cerebellar volume loss. Periventricular white matter microvascular changes. No evidence of acute large territory infarct. Old appearing periventricular lacune posterior to the right caudate head. No acute intracranial hemorrhage. Calvarium and skull base appear intact. Mastoids and middle ear cavities are aerated. Paranasal sinuses aerated. Extracranial soft tissues without acute findings. CTA Head: Calcific atherosclerotic disease of the carotid siphons without significant stenosis. 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 There is no evidence of vascular injury, specifically no significant arterial stenosis, occlusion, dissection, or pseudoaneurysm. The intracranial venous structures are also fairly well opacified and appear patent. CTA Neck: There is normal vascular anatomy. Arch origin left vertebral. Moderate short segment stenosis of the proximal left subclavian artery, with ulcerated plaque, versus small dissection flap. Vascular clips adjacent to the LCCA and proximal LICA suggests previous endarterectomy. Mixed calcific and soft atherosclerotic disease of the right carotid bulb with less than 50% stenosis of the DILIA origin, 0% stenosis of the LICA origin by NASCET criteria. There is no evidence of vascular injury, specifically no significant arterial stenosis, occlusion, dissection, or pseudoaneurysm. Procedure Note Prasad Beebe MD - 04/11/2025 CLINICAL INDICATION: poly trauma TECHNIQUE: Routine contiguous axial CT images of the head were obtained withoutcontrast administration. Contrast-enhanced CT angiogram of the head and neck was obtained afteradministration of intravenous iodinated contrast using 0.6 mm axial slicethickness with multiplanar reformations and maximum intensity projections.In addition, 3D images were created and reviewed. AI Utilization: None Total DLP (Dose-Length Product): 3212.56 mGy.cm (accession [id number]),3212.56 mGy.cm (accession [id number]), 3212.56 mGy.cm (accession [id number]).Please note: The reported value represents the total of one or moreindividual components during the CT acquisition on this date and at thistime, and as such, the same value may appear in more than one CT reportdepending on the interpreting/reporting physicians. COMPARISON: None. FINDINGS: CT Head without: CSF spaces are clear. No midline shift, or attenuation of the basilar cisterns. Chronic appearing cerebral and cerebellar volume loss. Periventricular white matter microvascular changes. No evidence of acute large territory infarct. Old appearing periventricular lacune posterior to the right caudatehead. No acute intracranial hemorrhage. Calvarium and skull base appear intact. Mastoids and middle ear cavities are aerated. Paranasal sinuses aerated. Extracranial soft tissues without acute findings. CTA Head: Calcific atherosclerotic disease of the carotid siphons withoutsignificant stenosis. 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 There is no evidence of vascular injury, specifically nosignificant arterial stenosis, occlusion, dissection, or pseudoaneurysm.The intracranial venous structures are also fairly well opacified andappear patent. CTA Neck: There is normal vascular anatomy. Arch origin left vertebral. Moderateshort segment stenosis of the proximal left subclavian artery, withulcerated plaque, versus small dissection flap. Vascular clips adjacent tothe LCCA and proximal LICA suggests previous endarterectomy. Mixedcalcific and soft atherosclerotic disease of the right carotid bulb withless than 50% stenosis of the DILIA origin, 0% stenosis of the LICA originby NASCET criteria. There is no evidence of vascular injury, specificallyno significant arterial stenosis, occlusion, dissection, orpseudoaneurysm. IMPRESSION: 1. No acute intracranial abnormality. 2. CTA of the head and neck without evidence of acute extracranial orintracranial arterial injury. 3. Moderate short segment stenosis of the proximal left subclavian artery,with ulcerated plaque, versus small dissection flap. CRITICAL RESULT: No. COMMUNICATION: Per this written report. Drafted by Prasad Beebe MD on 04/11/2025 9:04 PM Final report signed by Prasad Beebe MD on 04/11/2025 9:15 PM Trinity Darden MD IMG CT PROCEDURES Final Result * CT Head wo IV Contrast (04/11/2025 8:44 PM EDT) Anatomical Region Laterality Modality Head Computed Tomogra phy Impressions 04/11/2025 9:15 PM EDT 1. No acute intracranial abnormality. 2. CTA of the head and neck without evidence of acute extracranial or intracranial arterial injury. 3. Moderate short segment stenosis of the proximal left subclavian artery, with ulcerated plaque, versus small dissection flap. CRITICAL RESULT: No. COMMUNICATION: Per this written report. Drafted by Prasad Beebe MD on 04/11/2025 9:04 PM Final report signed by Prasad Beebe MD on 04/11/2025 9:15 PM Narrative 04/11/2025 9:15 PM EDT CLINICAL INDICATION: poly trauma TECHNIQUE: Routine contiguous axial CT images of the head were obtained without contrast administration. Contrast-enhanced CT angiogram of the head and neck was obtained after administration of intravenous iodinated contrast using 0.6 mm axial slice thickness with multiplanar reformations and maximum intensity projections. In addition, 3D images were created and reviewed. AI Utilization: None Total DLP (Dose-Length Product): 3212.56 mGy.cm (accession [id number]), 3212.56 mGy.cm (accession [id number]), 3212.56 mGy.cm (accession [id number]). Please note: The reported value represents the total of one or more individual components during the CT acquisition on this date and at this time, and as such, the same value may appear in more than one CT report depending on the interpreting/reporting physicians. COMPARISON: None. FINDINGS: CT Head without: CSF spaces are clear. No midline shift, or attenuation of the basilar cisterns. Chronic appearing cerebral and cerebellar volume loss. Periventricular white matter microvascular changes. No evidence of acute large territory infarct. Old appearing periventricular lacune posterior to the right caudate head. No acute intracranial hemorrhage. Calvarium and skull base appear intact. Mastoids and middle ear cavities are aerated. Paranasal sinuses aerated. Extracranial soft tissues without acute findings. CTA Head: Calcific atherosclerotic disease of the carotid siphons without significant stenosis. 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 There is no evidence of vascular injury, specifically no significant arterial stenosis, occlusion, dissection, or pseudoaneurysm. The intracranial venous structures are also fairly well opacified and appear patent. CTA Neck: There is normal vascular anatomy. Arch origin left vertebral. Moderate short segment stenosis of the proximal left subclavian artery, with ulcerated plaque, versus small dissection flap. Vascular clips adjacent to the LCCA and proximal LICA suggests previous endarterectomy. Mixed calcific and soft atherosclerotic disease of the right carotid bulb with less than 50% stenosis of the DILIA origin, 0% stenosis of the LICA origin by NASCET criteria. There is no evidence of vascular injury, specifically no significant arterial stenosis, occlusion, dissection, or pseudoaneurysm. Procedure Note Prasad Beebe MD - 04/11/2025 CLINICAL INDICATION: poly trauma TECHNIQUE: Routine contiguous axial CT images of the head were obtained withoutcontrast administration. Contrast-enhanced CT angiogram of the head and neck was obtained afteradministration of intravenous iodinated contrast using 0.6 mm axial slicethickness with multiplanar reformations and maximum intensity projections.In addition, 3D images were created and reviewed. AI Utilization: None Total DLP (Dose-Length Product): 3212.56 mGy.cm (accession [id number]),3212.56 mGy.cm (accession [id number]), 3212.56 mGy.cm (accession [id number]).Please note: The reported value represents the total of one or moreindividual components during the CT acquisition on this date and at thistime, and as such, the same value may appear in more than one CT reportdepending on the interpreting/reporting physicians. COMPARISON: None. FINDINGS: CT Head without: CSF spaces are clear. No midline shift, or attenuation of the basilar cisterns. Chronic appearing cerebral and cerebellar volume loss. Periventricular white matter microvascular changes. No evidence of acute large territory infarct. Old appearing periventricular lacune posterior to the right caudatehead. No acute intracranial hemorrhage. Calvarium and skull base appear intact. Mastoids and middle ear cavities are aerated. Paranasal sinuses aerated. Extracranial soft tissues without acute findings. CTA Head: Calcific atherosclerotic disease of the carotid siphons withoutsignificant stenosis. 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 There is no evidence of vascular injury, specifically nosignificant arterial stenosis, occlusion, dissection, or pseudoaneurysm.The intracranial venous structures are also fairly well opacified andappear patent. CTA Neck: There is normal vascular anatomy. Arch origin left vertebral. Moderateshort segment stenosis of the proximal left subclavian artery, withulcerated plaque, versus small dissection flap. Vascular clips adjacent tothe LCCA and proximal LICA suggests previous endarterectomy. Mixedcalcific and soft atherosclerotic disease of the right carotid bulb withless than 50% stenosis of the DILIA origin, 0% stenosis of the LICA originby NASCET criteria. There is no evidence of vascular injury, specificallyno significant arterial stenosis, occlusion, dissection, orpseudoaneurysm. IMPRESSION: 1. No acute intracranial abnormality. 2. CTA of the head and neck without evidence of acute extracranial orintracranial arterial injury. 3. Moderate short segment stenosis of the proximal left subclavian artery,with ulcerated plaque, versus small dissection flap. CRITICAL RESULT: No. COMMUNICATION: Per this written report. Drafted by Prasad Beebe MD on 04/11/2025 9:04 PM Final report signed by Prasad Beebe MD on 04/11/2025 9:15 PM Trinity Darden MD IMG CT PROCEDURES Final Result * CT Angio Head (04/11/2025 8:44 PM EDT) Anatomical Region Laterality Modality [place] Computed Tomogr aphy Impressions 04/11/2025 9:15 PM EDT 1. No acute intracranial abnormality. 2. CTA of the head and neck without evidence of acute extracranial or intracranial arterial injury. 3. Moderate short segment stenosis of the proximal left subclavian artery, with ulcerated plaque, versus small dissection flap. CRITICAL RESULT: No. COMMUNICATION: Per this written report. Drafted by Prasad Beebe MD on 04/11/2025 9:04 PM Final report signed by Prasad Beebe MD on 04/11/2025 9:15 PM Narrative 04/11/2025 9:15 PM EDT CLINICAL INDICATION: poly trauma TECHNIQUE: Routine contiguous axial CT images of the head were obtained without contrast administration. Contrast-enhanced CT angiogram of the head and neck was obtained after administration of intravenous iodinated contrast using 0.6 mm axial slice thickness with multiplanar reformations and maximum intensity projections. In addition, 3D images were created and reviewed. AI Utilization: None Total DLP (Dose-Length Product): 3212.56 mGy.cm (accession [id number]), 3212.56 mGy.cm (accession [id number]), 3212.56 mGy.cm (accession [id number]). Please note: The reported value represents the total of one or more individual components during the CT acquisition on this date and at this time, and as such, the same value may appear in more than one CT report depending on the interpreting/reporting physicians. COMPARISON: None. FINDINGS: CT Head without: CSF spaces are clear. No midline shift, or attenuation of the basilar cisterns. Chronic appearing cerebral and cerebellar volume loss. Periventricular white matter microvascular changes. No evidence of acute large territory infarct. Old appearing periventricular lacune posterior to the right caudate head. No acute intracranial hemorrhage. Calvarium and skull base appear intact. Mastoids and middle ear

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
== END 2025-07-09 23:59 | disposition home or self-care (01) ==
LOC: RAD 15:18
PROVIDERS: PCP Nurse Practitioner Family; Visit Provider Nurse Practitioner Family
DX: S32.010A Wedge compression fracture of first lumbar vertebra, initial encounter for closed fracture (principal); G95.20 Unspecified cord compression; R29.2 Abnormal reflex; R26.81 Unsteadiness on feet; V86.99XA Unspecified occupant of other special all-terrain or other off-road motor vehicle injured in nontraffic accident, initial encounter
CPT/HCPCS: 72148

== ENCOUNTER 2025-09-04 16:00 | Outpatient (RCR) | payer MEDICARE, SELFPAY | END 2025-09-04 23:59 | disposition home or self-care (01) | LOC: OT 16:00 | PROVIDERS: PCP Nurse Practitioner Family; Visit Provider Orthopaedic Surgery | DX: S42.201A Unspecified fracture of upper end of right humerus, initial encounter for closed fracture (principal) | CPT/HCPCS: 97032; 97110; 97140; 97166 ==

== ENCOUNTER 2025-09-19 17:00 | Outpatient (RCR) | payer MEDICARE, SELFPAY | END 2025-09-19 23:59 | disposition home or self-care (01) | LOC: OT 17:00 | PROVIDERS: PCP Nurse Practitioner Family; Visit Provider Orthopaedic Surgery | DX: S42.201A Unspecified fracture of upper end of right humerus, initial encounter for closed fracture (principal) | CPT/HCPCS: 97014; 97110; 97140; G0283 ==